=== PATIENT | female | born 1995 | race Caucasian/White ===

== ENCOUNTER 2017-05-05 19:25 | Emergency (ER) | payer MEDICAID, SELFPAY ==
[2017-05-05 19:32] VITALS: BP 122/78; PULSE 133; RESP 18; TEMP 37.5; O2SAT 100; BMI 26.5
[2017-05-05 19:44] VITALS: BMI 26.5
[2017-05-05 20:05] LABS: Microscopic, Urine URINE MICROSCOPIC (MICROSCOPIC)
[2017-05-05 20:11] LABS: Basophils % 0.2 % (0.1-2.0); Eosinophils # 0.1 K/mm3 (0.0-0.4); Eosinophils % 0.7 % (0.1-12.0); Hematocrit 38.5 % (37.0-47.0); Hemoglobin 12.7 g/dL (12.2-16.2); Lymphocytes # 1.1 K/mm3 (0.7-4.5); Lymphocytes % 10.8 K/mm3 (10-50); Mean Corpuscular HGB Conc 32.9 g/dL (31.8-35.4); Mean Corpuscular Hemoglobin 28.9 pg (27.0-31.2); Mean Corpuscular Volume 87.8 fl (81-99); Mean Platelet Volume 7.3 fl (7.4-10.4); Monocytes # 0.5 K/mm3 (0.1-1.0); Neutrophils # 8.1 K/mm3 (1.8-7.8); Neutrophils % 83.2 % (37.0-80.0); Platelet Count 230 K/mm3 (142-424); Red Blood Count 4.39 M/mm3 (4.20-5.40); Red Cell Distribution Width 12.4 % (11.5-17.5); White Blood Count 9.7 K/mm3 (4.5-13.0)
[2017-05-05 20:23] LABS: Alanine Aminotransferase 21 U/L (12-78); Albumin Level 3.6 gm/dL (3.4-5.0); Albumin/Globulin Ratio 0.9 (1.1-1.8); Alkaline Phosphatase 109 U/L (46-116); Anion Gap 11.6 mEq/L (5-15); Appearance,Urine CLEAR (Clear); Aspartate Amino Transferase 20 U/L (15-37); Bilirubin,Total 0.2 mg/dL (0.2-1.0); Bilirubin,Urine Negative (Negative); Blood Urea Nitrogen 8 mg/dL (7-18); Blood, Urine Negative (Negative); Carbon Dioxide 26 mmol/L (21.0-32.0); Chloride 102 mmol/L (98-107); Color,Urine YELLOW (Yellow); Creatinine Clearance Estimated 161 mL/min (0-300); Creatinine,Serum 0.58 mg/dL (0.55-1.02); Estimated Glomerular Filt Rate > 60 ml/min (>60); GFR (African American) > 60 ML/MIN (>60); Glucose 88 mg/dL (74-106); Glucose,Urine (UA) Negative (Negative); Ketones,Urine 1+ (Negative); Leukocyte Esterase,Urine Negative (Negative); Nitrate,Urine Negative (Negative); Potassium 3.6 mmoL/L (3.5-5.1); Protein,Urine TRACE (Negative); Sodium 136 mmol/L (136-145); Specific Gravity, Urine >= 1.030 (1.005-1.030); Total Protein,Serum 7.6 gm/dL (6.4-8.2); Urobilinogen,Urine 0.2 EU/dl (0.2)
[2017-05-05 20:32] LABS: Squamous Epithelial Cell,Urine 20-50 #/hpf (0-5)
[2017-05-05 20:33] LABS: Amorphous Sediment,Urine 1+ /lpf; Mucus,Urine 1+ /lpf
--- NOTE | 2017-05-05 22:04 | HMH.EDGENADL ---
ED Disposition Clinical Impression: Influenza A Qualifiers: Weeks of gestation: 11 weeks Qualified Code(s): Z3A.11 - 11 weeks gestation of Disposition: Home, Self-Care Condition on Discharge: Good Instructions: DI for Influenza -- Adult, DI for Nausea -- Adult Additional Instructions: Follow-up with Dr. Mcleod. Call for appointment. Take Phenergan for nausea. Rest and plenty of fluids per Additional instructions for INFLUENZA: See your physician as soon as possible for further evaluation. Tylenol for fever. Phenergan for vomiting. Return immediately if you have an uncontrollable fever greater than 104 degrees, difficulty breathing or shortness of breath, persistent vomiting, or inability to swallow, severe dizziness or fainting. Prescriptions: Oseltamivir Phosphate [Tamiflu 75mg Capsule] 75 mg PO BID #10 cap Referrals: Eric Bermudez MD [Primary Care Provider] - - Critical Care Critical Care Time: No Attestation: On 05/05/17, the high probability of a clinically significant, sudden or life threatening deterioration of the following system(s) required my full and direct attention, intervention and personal management. The time I documented below is in addition to time spent performing reported procedures but includes the following listed in this critical care notation. Medical Decision Making Vital Signs: 05/05/17 19:32 Temperature 99.5 F Temperature Source Temporal Artery Scan Pulse Rate [Brachial] 133 H Respiratory Rate 18 Blood Pressure [Left Arm] 122/78 Blood Pressure Mean [Left Arm] 92 Blood Pressure Source [Left Arm] Automatic Cuff 02 Sat by Pulse Oximetry 100 Oxygen Delivery Method Room Air - Lab Data Lab Results 05/05/17 19:50: Urine Color Yellow, Urine Appearance Clear, Urine pH 6.0, Ur Specific [place] >= 1.030, Urine Protein Trace, Urine Glucose (UA) Negative, Urine Ketones 1+, Urine Blood Negative, Urine Nitrate Negative, Urine Bilirubin Negative, Urine Urobilinogen 0.2, Ur Leukocyte Esterase Negative, Ur Squamous Epith Cells 20-50, Amorphous Sediment 1+, Urine Mucus 1+ 05/05/17 19:50: WBC 9.7, RBC 4.39, Hgb 12.7, Hct 38.5, MCV 87.8, MCH 28.9, MCHC 32.9, RDW 12.4, Plt Count 230, MPV 7.3 L, Neut % (Auto) 83.2 H, Lymph % (Auto) 10.8, [place] % (Auto) 5.0, Eos % (Auto) 0.7, Baso % (Auto) 0.2, Neut # (Auto) 8.1 H, Lymph # (Auto) 1.1, Henry # (Auto) 0.5, Eos # (Auto) 0.1, Baso # (Auto) 0.0 05/05/17 19:50: Sodium 136, Potassium 3.6, Chloride 102, Carbon Dioxide 26, Anion Gap 11.6, BUN 8, Creatinine 0.58, Estimated Creat Clear 161, Estimated GFR > 60, Est GFR ( Amer) > 60, Glucose 88, Calcium 9.0, Total Bilirubin 0.2, AST 20, ALT 21, Alkaline Phosphatase 109, Total Protein 7.6, Albumin 3.6, Globulin 4.0 H, Albumin/Globulin Ratio 0.9 L 05/05/17 19:50: Influenza Type A Ag Positive A, Influenza Type B Ag Negative Result diagrams: 05/05/17 19:50 05/05/17 19:50 Orders (Tests/Meds): ED MEDICATIONS Generic Name Dose Route Start Last Admin Trade Name Freq PRN Reason Stop Dose Admin Oseltamivir Phosphate 75 mg 05/06/17 09:00 Tamiflu 75mg Capsule PO 06/05/17 08:59 BID LILIA Sodium Chloride 10 ml 05/05/17 19:55 Saline Flush 10ml Syringe IV 06/04/17 19:54 NEEDED PRN Maintain IV Site Discontinued Medications Generic Name Dose Route Start Last Admin Trade Name Freq PRN Reason Stop Dose Admin Acetaminophen 650 mg 05/05/17 22:13 05/05/17 22:27 Acetaminophen 325mg Tab PO 05/05/17 22:14 650 mg ONCE ONE Administration Sodium Chloride 1,000 mls @ 999 mls/hr 05/05/17 20:15 05/05/17 20:21 Sod Chloride 0.9% 1000ml Bag IV 05/05/17 21:15 999 mls/hr .Q1H1M LILIA Administration Promethazine HCl 12.5 mg 05/05/17 22:13 05/05/17 22:23 Phenergan 25mg/Ml 1ml Vial IV 05/05/17 22:14 12.5 mg ONCE ONE Administration Sodium Chloride 1,000 ml 05/05/17 22:13 05/05/17 22:30 Sod Chloride 0.9% 1000ml Bag IV
--- NOTE | 2017-05-05 22:30 | PC.NURSE ---
FHT ASSESSED AT 156 AT THIS TIME
--- NOTE | 2017-05-05 22:54 | PC.NURSE ---
SPOKE TO MYA FROM PHARMACY RELATED TO TAMIFLU DURING
--- NOTE | 2017-05-05 23:00 | PC.NURSE ---
PT STATES SHE IS FEELING BETTER AND READY TO GO HOME NOW
== END 2017-05-06 00:18 | disposition home or self-care (01) ==
PROVIDERS: Emergency Provider Emergency Medicine; Family Provider Physician Assistant; PCP Internal Medicine Adolescent Medicine
DX: O98.511 Other viral diseases complicating pregnancy, first trimester (principal); J10.1 Influenza due to other identified influenza virus with other respiratory manifestations; Z3A.11 11 weeks gestation of pregnancy; O99.331 Smoking (tobacco) complicating pregnancy, first trimester; F17.210 Nicotine dependence, cigarettes, uncomplicated
CPT/HCPCS: 80053; 81001; 85025; 87275; 87276; 96365; 96375; 99282

== ENCOUNTER 2017-05-13 12:51 | Emergency (ER) | payer MEDICAID, SELFPAY ==
[2017-05-13 12:59] VITALS: BP 111/70; PULSE 110; RESP 16; TEMP 5414.3; TEMP 9777.8; O2SAT 98; BMI 26.5
--- NOTE | 2017-05-13 13:09 | HMH.EDGENADL ---
ED Disposition Clinical Impression: Abdominal pain affecting , Low back pain Disposition: Home, Self-Care Condition on Discharge: Good Instructions: DI for Abdominal Pain -- Early Additional Instructions: Return to the emergency department if worsening abdominal pain, vomiting, fever, or vaginal bleeding. Call Dr. Mcleod on Monday to arrange follow-up. - Critical Care Critical Care Time: No Attestation: On , the high probability of a clinically significant, sudden or life threatening deterioration of the following system(s) required my full and direct attention, intervention and personal management. The time I documented below is in addition to time spent performing reported procedures but includes the following listed in this critical care notation. Medical Decision Making Vital Signs: 05/13/17 12:59 Temperature 9777.8 F H Temperature Source Oral Pulse Rate [Right Brachial] 110 H Respiratory Rate 16 Blood Pressure [Right Arm] 111/70 Blood Pressure Mean [Right Arm] 83 Blood Pressure Source [Right Arm] Automatic Cuff Blood Pressure Position [Right Arm] Supine 02 Sat by Pulse Oximetry 98 Oxygen Delivery Method Room Air - Lab Data Lab Results 05/13/17 13:17: Urine Color Yellow, Urine Appearance Cloudy, Urine pH 6.0, Ur Specific [place] 1.025, Urine Protein Negative, Urine Glucose (UA) Negative, Urine Ketones Negative, Urine Blood Negative, Urine Nitrate Negative, Urine Bilirubin Negative, Urine Urobilinogen 0.2, Ur Leukocyte Esterase Negative, Urine WBC 10-20, Ur Squamous Epith Cells 20-50, Urine Bacteria 4+ Orders (Tests/Meds): ORDERS Category Date Time Status Urine Culture Stat Micro 05/13/17 13:17 Received - Dannie Inquiry Pt receiving controlled substance: No Medical Decision Making Narrative: 1:50 PM: Bedside ultrasound by me. Pelvic ultrasound, transabdominal, confirms movement and heart tones. General Adult HPI - General Chief complaint: PAIN Stated complaint: 12 wks ,back pain,cramps Mode of Arrival: Ambulatory Limitations: No Limitations Description of Symptoms (Recalled from ER Triage Doc. by RN): low abd cramping, back pain-just got over flu - History of Present Illness HPI narrative: The patient is currently 12 weeks and 3 days , prima . Utilization Supervisor is Dr. Mcleod. The patient complains of lower back and lower abdominal pain diffusely since last evening. It is constant. No vomiting or diarrhea. No urinary symptoms. No vaginal bleeding. She has had an ultrasound during this . Recently treated for the flu with Tamiflu. She completed that treatment and says her flu symptoms are better. - Related Data Home Medications Medication Instructions Recorded Confirmed vitamins with calcium 1 tab PO QDAY 04/26/17 05/05/17 no.72-iron 29 mg-folic acid 1 mg tablet Previous Rx's Medication Instructions Recorded Oseltamivir Phosphate [Tamiflu 75 mg PO BID #10 cap 05/05/17 75mg Capsule] Allergies Allergy/AdvReac Type Severity Reaction Status Date / Time amoxicillin [AMOXICILLIN] Allergy Unknown Verified 05/05/17 19:44 [facility] History I have reviewed the patient's past medical history: Yes Laterality Cases: Bilateral: Tonsillectomy - *Social History Educational Level: Attended High School Smoking Status: Current every day smoker Tobacco Type: cigarettes Alcohol Intake: never - Psychiatric History Expresses thoughts of harming self/others: None Suicide Plan Description: No Plan *Family Hx:: No significant family history Para: 0 ROS Obtained: Yes All systems reviewed & no additional complaints - Constitutional Constitutional: Denies fever(s) - Gastrointestinal Gastrointestingal: Reports: abdominal pain. Denies: diarrhea, vomiting - Genitourinary Female Genitourinary: Denies abnormal vaginal bleeding, Denies dysuria, Denies hematuria - Musculoskeletal
--- NOTE | 2017-05-13 13:12 | ED_ITS ---
ED Disposition Clinical Impression: Abdominal pain affecting , Low back pain Disposition: Home, Self-Care Condition on Discharge: Good Instructions: DI for Abdominal Pain -- Early Additional Instructions: Return to the emergency department if worsening abdominal pain, vomiting, fever , or vaginal bleeding. Call Dr. Mcleod on Monday to arrange follow-up. - Critical Care Critical Care Time: No Attestation: On , the high probability of a clinically significant, sudden or life threatening deterioration of the following system(s) required my full and direct attention, intervention and personal management. The time I documented below is in addition to time spent performing reported procedures but includes the following listed in this critical care notation. Medical Decision Making Vital Signs: 05/13/17 12:59 Temperature 9777.8 F H Temperature Source Oral Pulse Rate [Right Brachial] 110 H Respiratory Rate 16 Blood Pressure [Right Arm] 111/70 Blood Pressure Mean [Right Arm] 83 Blood Pressure Source [Right Arm] Automatic Cuff Blood Pressure Position [Right Arm] Supine 02 Sat by Pulse Oximetry 98 Oxygen Delivery Method Room Air - Lab Data Lab Results 05/13/17 13:17: Urine Color Yellow, Urine Appearance Cloudy, Urine pH 6.0, Ur Specific [place] 1.025, Urine Protein Negative, Urine Glucose (UA) Negative, Urine Ketones Negative, Urine Blood Negative, Urine Nitrate Negative, Urine Bilirubin Negative, Urine Urobilinogen 0.2, Ur Leukocyte Esterase Negative, Urine WBC 10-20, Ur Squamous Epith Cells 20-50, Urine Bacteria 4+ Orders (Tests/Meds): ORDERS Category Date Time Status Urine Culture Stat Micro 05/13/17 13:17 Received - Dannie Inquiry Pt receiving controlled substance: No Medical Decision Making Narrative: 1:50 PM: Bedside ultrasound by me. Pelvic ultrasound, transabdominal, confirms movement and heart tones. General Adult HPI - General Chief complaint: PAIN Stated complaint: 12 wks ,back pain,cramps Mode of Arrival: Ambulatory Limitations: No Limitations Description of Symptoms (Recalled from ER Triage Doc. by RN): low abd cramping, back pain-just got over flu - History of Present Illness HPI narrative: The patient is currently 12 weeks and 3 days , prima . Overlock Collar Setter is Dr. Mcleod. The patient complains of lower back and lower abdominal pain diffusely since last evening. It is constant. No vomiting or diarrhea. No urinary symptoms. No vaginal bleeding. She has had an ultrasound during this . Recently treated for the flu with Tamiflu. She completed that treatment and says her flu symptoms are better. - Related Data Home Medications Medication Instructions Recorded Confirmed vitamins with calcium 1 tab PO QDAY 04/26/17 05/05/17 no.72-iron 29 mg-folic acid 1 mg tablet Previous Rx's Medication Instructions Recorded Oseltamivir Phosphate [Tamiflu 75 mg PO BID #10 cap 05/05/17 75mg Capsule] Allergies Allergy/AdvReac Type Severity Reaction Status Date / Time amoxicillin [AMOXICILLIN] Allergy Unknown Verified 05/05/17 19:44 [facility] History I have reviewed the patient's past medical history: Yes Laterality Cases: [place]
[2017-05-13 13:22] LABS: Microscopic, Urine URINE MICROSCOPIC (MICROSCOPIC)
[2017-05-13 13:29] LABS: Appearance,Urine CLOUDY (Clear); Bilirubin,Urine Negative (Negative); Blood, Urine Negative (Negative); Color,Urine YELLOW (Yellow); Glucose,Urine (UA) Negative (Negative); Ketones,Urine Negative (Negative); Leukocyte Esterase,Urine Negative (Negative); Nitrate,Urine Negative (Negative); Protein,Urine Negative (Negative); Specific Gravity, Urine 1.025 (1.005-1.030); Urobilinogen,Urine 0.2 EU/dl (0.2)
[2017-05-13 13:38] LABS: Bacteria,Urine 4+ /lpf; Squamous Epithelial Cell,Urine 20-50 #/hpf (0-5)
[2017-05-13 14:16] VITALS: BP 125/71; PULSE 96; RESP 18; TEMP 36.9; O2SAT 95
--- NOTE | 2017-05-13 14:18 | PC.NURSE ---
ASSISTED DR IN PELVIC EXAM. PT TOLERATED WELL.
[2017-05-13 14:30] VITALS: BP 122/62; PULSE 60; RESP 18; O2SAT 98
== END 2017-05-13 14:34 | disposition home or self-care (01) ==
PROVIDERS: Emergency Provider Emergency Medicine; Family Provider Physician Assistant; PCP Internal Medicine Adolescent Medicine
DX: O26.891 Other specified pregnancy related conditions, first trimester (principal); Z3A.12 12 weeks gestation of pregnancy; Z88.1 Allergy status to other antibiotic agents
CPT/HCPCS: 36415; 81001; 87086; 99282

== ENCOUNTER → 2017-06-07 11:38 | Outpatient (CLI) | payer MEDICAID, SELFPAY ==
[2017-06-20 13:11] LABS: AFP Value 33.9 ng/mL (.); DIA MoM 1.29 (.); DSR (Second Trimester) 1 IN 8051 (.); Insulin Dep Diabetes No (.); Maternal Age At EDD 21.1 YEARS (.); OSBR Risk 1 IN 10000 (.); Results Report (.); hCG MoM 0.67 (.); hCG Value 27160 mIU/mL (.); uE3 Value 0.91 ng/mL (.)
[2017-06-21 06:35] LABS: Gestat. Age Based On EDD (.)
== END ==
PROVIDERS: Family Provider Physician Assistant; PCP Internal Medicine Adolescent Medicine; Visit Provider Nurse Practitioner Obstetrics & Gynecology
DX: Z34.90 Encounter for supervision of normal pregnancy, unspecified, unspecified trimester (principal)
CPT/HCPCS: 36415; 82106

== ENCOUNTER → 2017-07-05 12:35 | Outpatient (CLI) | payer MEDICAID, SELFPAY ==
--- NOTE | 2017-07-05 12:37 | US_ITS ---
US OB /maternal detail: INDICATION: ITS.REASON: 20 WK+ COMPLETE ANATOMY SCAN ORDERING PHYSICIAN: Srinivasa Mcleod MD PATIENT AGE: 21 years TECHNIQUE: ultrasound transabdominal scanning. COMPARISON: No previous relevant studies. FINDINGS: Single viable intrauterine gestation. cephalic position. Placenta: posterior placenta grade 1. There is adequate amount fluid. The cervix appears satisfactory. Closed and measuring 3 cm in length. Complete survey performed and was unremarkable on the submitted images as in PACS. No discrete anomalies identified on survey imaging by technologist. Active fetus. Three-vessel cord with satisfactory umbilical cord insertion. 4- chamber heart noted. Survey of brain & ventricles. Face and neck survey unremarkable. Diaphragm and chest views unremarkable. Abdomen: Both kidneys noted and unremarkable. Stomach noted and satisfactory. Spine: Survey of the spine satisfactory with no anomalies identified nor imaged. Both arms and legs noted. Amniotic Fluid: Adequate. Maternal adnexa: No significant findings. Measurements: Average ultrasound age 19w4d. Gestational Age 20w0d. Estimated due date by ultrasound age 0711/25/2017. Estimated weight 291 grams. This is 17th percentile based on last menstrual period BPD = 19w6d OFD = 19w4d HC = 19w0d AC = 20w0d FL = 19w0d Heart Rate = 153 Cerebellum = 21w1d Humerus = 18w1d HC/AC is 1.10 (1.09-1.26). CI is 82% (70-86%). FL/BPD is 63%. FL/AC is 20%. IMPRESSION: Single live fetus in cephalic presentation and an average ultrasound age of 19 weeks 4 days. The fetus is active with no obvious anomalies. Please see above for detail
== END ==
PROVIDERS: Family Provider Physician Assistant; PCP Internal Medicine Adolescent Medicine; Visit Provider Nurse Practitioner Obstetrics & Gynecology
DX: Z36.0 Encounter for antenatal screening for chromosomal anomalies (principal)
CPT/HCPCS: 76811

== ENCOUNTER 2017-07-20 15:57 | Outpatient (CLI) | payer MEDICAID, SELFPAY ==
[2017-07-20 16:30] VITALS: BP 139/76; PULSE 99; RESP 22; TEMP 36.7; O2SAT 99; BMI 27.4
[2017-07-20 17:12] LABS: Appearance,Urine CLEAR (Clear); Bilirubin,Urine Negative (Negative); Blood, Urine Negative (Negative); Color,Urine YELLOW (Yellow); Glucose,Urine (UA) Negative (Negative); Ketones,Urine Negative (Negative); Leukocyte Esterase,Urine TRACE (Negative); Microscopic, Urine URINE MICROSCOPIC (MICROSCOPIC); Nitrate,Urine Negative (Negative); PH,Urine 6.5 (5.0-8.5); Protein,Urine Negative (Negative); Specific Gravity, Urine 1.025 (1.005-1.030); Urobilinogen,Urine 0.2 EU/dl (0.2)
[2017-07-20 17:22] LABS: Bacteria,Urine 1+ /lpf
== END 2017-07-20 18:20 | disposition home or self-care (01) ==
LOC: OBOUT 15:59 → OB 16:04
PROVIDERS: PCP Nurse Practitioner Obstetrics & Gynecology; Visit Provider Nurse Practitioner Obstetrics & Gynecology
DX: O99.89 Other specified diseases and conditions complicating pregnancy, childbirth and the puerperium (principal); O36.8120 Decreased fetal movements, second trimester, not applicable or unspecified; Z3A.22 22 weeks gestation of pregnancy
CPT/HCPCS: 59025; 81001

== ENCOUNTER 2017-08-03 23:40 | Outpatient (CLI) | payer MEDICAID, SELFPAY ==
[2017-08-04] VITALS: BP 128/74; PULSE 93; RESP 18; TEMP 36.9; O2SAT 98; BMI 28.3
[2017-08-04 00:06] VITALS: BP 128/74; PULSE 93; RESP 17; TEMP 36.9; O2SAT 98; BMI 28.3
[2017-08-04 00:51] LABS: Microscopic, Urine URINE MICROSCOPIC (MICROSCOPIC)
[2017-08-04 01:45] LABS: Appearance,Urine CLEAR (Clear); Bilirubin,Urine Negative (Negative); Blood, Urine Negative (Negative); Color,Urine YELLOW (Yellow); Glucose,Urine (UA) Negative (Negative); Ketones,Urine Negative (Negative); Leukocyte Esterase,Urine Negative (Negative); Nitrate,Urine Negative (Negative); Protein,Urine Negative (Negative); Specific Gravity, Urine 1.025 (1.005-1.030); Urobilinogen,Urine 0.2 EU/dl (0.2)
[2017-08-04 02:38] LABS: RBC,Urine Occasional #/hpf (0-3)
[2017-08-04 02:39] LABS: Bacteria,Urine 2+ /lpf; Calcium Oxalate Crystals,Urine Trace /lpf
== END 2017-08-04 01:57 | disposition hospice, home (50) ==
LOC: OBOUT 23:43 → OB 23:44
PROVIDERS: PCP Nurse Practitioner Family; Visit Provider Obstetrics & Gynecology
DX: O26.92 Pregnancy related conditions, unspecified, second trimester (principal); Z3A.24 24 weeks gestation of pregnancy; R51 Headache; R20.0 Anesthesia of skin
CPT/HCPCS: 81001; 87086

== ENCOUNTER 2017-08-25 21:08 | Outpatient (CLI) | payer MEDICAID, SELFPAY ==
[2017-08-25 21:26] VITALS: BMI 56.8
[2017-08-25 21:45] LABS: Microscopic, Urine URINE MICROSCOPIC (MICROSCOPIC)
[2017-08-25 21:46] LABS: Appearance,Urine CLEAR (Clear); Bilirubin,Urine Negative (Negative); Blood, Urine Negative (Negative); Color,Urine YELLOW (Yellow); Glucose,Urine (UA) Negative (Negative); Ketones,Urine Negative (Negative); Leukocyte Esterase,Urine Negative (Negative); Nitrate,Urine Negative (Negative); Protein,Urine Negative (Negative); Urobilinogen,Urine 0.2 EU/dl (0.2)
[2017-08-25 21:58] LABS: Amphetamine/Metha Screen,Urine Negative ng/mL (<1000); Barbiturates Screen,Urine Negative ng/mL (<200); Benzodiazepines Screen,Urine Negative ng/mL (200); Cannabinoid Screen,Urine Negative ng/mL (<50); Cocaine Screen,Urine Negative ng/g (<300); Methadone Screen,Urine Negative ng/mL (<300); Opiate Screen,Urine Negative ng/mL (<300); Phencyclidine Screen,Urine Negative ng/mL (<25)
[2017-08-25 22:01] LABS: Bacteria,Urine Trace /lpf; Squamous Epithelial Cell,Urine Occasional #/hpf (0-5)
[2017-08-25 22:05] VITALS: BP 109/66; PULSE 95; RESP 18; TEMP 36.8; O2SAT 98
[2017-08-25 22:06] LABS: Fetal Membrane Rupture (Rapid) Negative (Negative)
[2017-08-25 22:09] VITALS: BMI 25.7
[2017-08-25 22:25] LABS: Fetal Fibronectin (Rapid) Negative (Negative)
== END 2017-08-25 23:00 | disposition home or self-care (01) ==
LOC: OBOUT 21:10 → OB 21:11
PROVIDERS: PCP Nurse Practitioner Family; Visit Provider Obstetrics & Gynecology
DX: Z3A.27 27 weeks gestation of pregnancy (principal); O47.00 False labor before 37 completed weeks of gestation, unspecified trimester
CPT/HCPCS: 59025; 80305; 81001; 82731; 84112

== ENCOUNTER → 2017-09-11 14:13 | Outpatient (CLI) | payer MEDICAID, SELFPAY ==
[2017-09-11 14:48] LABS: Basophils % 0.1 % (0.1-2.0); Eosinophils # 0.1 K/mm3 (0.0-0.4); Eosinophils % 0.6 % (0.1-12.0); Hematocrit 34.7 % (37.0-47.0); Hemoglobin 11.8 g/dL (12.2-16.2); Lymphocytes % 19.1 K/mm3 (10-50); Mean Corpuscular HGB Conc 33.9 g/dL (31.8-35.4); Mean Corpuscular Volume 88.4 fl (81-99); Mean Platelet Volume 7.2 fl (7.4-10.4); Monocytes # 0.4 K/mm3 (0.1-1.0); Monocytes % 4.2 % (1.7-9.3); Neutrophils # 8.1 K/mm3 (1.8-7.8); Neutrophils % 76.1 % (37.0-80.0); Platelet Count 265 K/mm3 (142-424); Red Blood Count 3.93 M/mm3 (4.20-5.40); Red Cell Distribution Width 13.2 % (11.5-17.5); White Blood Count 10.6 K/mm3 (4.5-13.0)
[2017-09-11 15:13] LABS: D-Dimer 634 ng/mL (0-400)
[2017-09-11 15:19] LABS: Activated Partial Thrombo Time 26.6 seconds (23.6-34.0); Fibrinogen 500 mg/dL (204-500); INR 0.86 (0.9-1.1); Prothrombin Time 9.3 seconds (9.4-11.8)
[2017-09-11 16:55] LABS: Alanine Aminotransferase 15 U/L (12-78); Anion Gap 14.4 mEq/L (5-15); Aspartate Amino Transferase 14 U/L (15-37); Blood Urea Nitrogen 9 mg/dL (7-18); Carbon Dioxide 24 mmol/L (21.0-32.0); Chloride 103 mmol/L (98-107); Creatinine,Serum 0.33 mg/dL (0.55-1.02); Estimated Glomerular Filt Rate 254 ml/min (>60); GFR (African American) 307 ML/MIN (>60); Glucose 75 mg/dL (74-106); Potassium 4.4 mmoL/L (3.5-5.1); Sodium 137 mmol/L (136-145); Uric Acid 1.7 mg/dL (2.6-7.2)
== END ==
PROVIDERS: Family Provider Physician Assistant; PCP Nurse Practitioner Family; Visit Provider Nurse Practitioner Obstetrics & Gynecology
DX: Z34.90 Encounter for supervision of normal pregnancy, unspecified, unspecified trimester (principal); O16.3 Unspecified maternal hypertension, third trimester
CPT/HCPCS: 36415; 80048; 84450; 84460; 84550; 85025; 85378; 85384; 85610; 85730

== ENCOUNTER → 2017-09-13 09:56 | Outpatient (CLI) | payer MEDICAID, SELFPAY ==
[2017-09-13 13:22] LABS: Creatinine,Urine Random 49 mg/dL (20-320)
[2017-09-13 13:43] LABS: Collection Time,Urine 24 hours; Creatinine 24 Hour,Urine 968 mg/24hr (630-2500); Total Volume,Urine 1975 mL (600-1600)
[2017-09-13 16:35] LABS: Total Protein 24 Hour,Urine 192 mg/24 hr (40-90); Total Protein,Urine Random 9.7 mg/dL (0.0-11.9)
== END ==
PROVIDERS: Visit Provider Nurse Practitioner Obstetrics & Gynecology
DX: Z34.90 Encounter for supervision of normal pregnancy, unspecified, unspecified trimester (principal)
CPT/HCPCS: 82570; 84155

== ENCOUNTER 2017-10-04 13:27 | Outpatient (CLI) | payer MEDICAID, SELFPAY ==
[2017-10-04 13:47] VITALS: BMI 31.1
[2017-10-04 13:48] VITALS: BP 129/76; PULSE 88; RESP 18; TEMP 37; O2SAT 99; BMI 31.1
[2017-10-04 14:11] LABS: Microscopic, Urine URINE MICROSCOPIC (MICROSCOPIC)
[2017-10-04 14:23] LABS: Appearance,Urine CLEAR (Clear); Bilirubin,Urine Negative (Negative); Blood, Urine Negative (Negative); Color,Urine YELLOW (Yellow); Glucose,Urine (UA) Negative (Negative); Ketones,Urine Negative (Negative); Leukocyte Esterase,Urine TRACE (Negative); Nitrate,Urine Negative (Negative); PH,Urine 6.5 (5.0-8.5); Protein,Urine Negative (Negative); Urobilinogen,Urine 0.2 EU/dl (0.2)
[2017-10-04 14:30] LABS: WBC,Urine Occasional #/hpf (0-3)
[2017-10-04 14:31] LABS: Bacteria,Urine Trace /lpf; Squamous Epithelial Cell,Urine Occasional #/hpf (0-5)
[2017-10-04 14:59] VITALS: BP 125/81; PULSE 95; RESP 18; O2SAT 99
== END 2017-10-04 14:50 | disposition home or self-care (01) ==
LOC: OBOUT 13:29 → OB 13:30
PROVIDERS: PCP Nurse Practitioner Family; Visit Provider Obstetrics & Gynecology
DX: O47.03 False labor before 37 completed weeks of gestation, third trimester (principal); Z3A.33 33 weeks gestation of pregnancy
CPT/HCPCS: 59025; 81001

== ENCOUNTER 2017-10-14 23:16 | Outpatient (CLI) | payer MEDICAID, SELFPAY ==
[2017-10-14 23:50] VITALS: BP 154/92; PULSE 113; RESP 20; TEMP 36.9; BMI 31.1
[2017-10-14 23:52] VITALS: BMI 31.1
== END 2017-10-15 01:00 | disposition home or self-care (01) ==
LOC: OBOUT 23:17 → OB 23:18
PROVIDERS: PCP Nurse Practitioner Family; Referring Provider Nurse Practitioner Obstetrics & Gynecology; Visit Provider Nurse Practitioner Obstetrics & Gynecology
DX: O26.893 Other specified pregnancy related conditions, third trimester (principal); Z3A.34 34 weeks gestation of pregnancy
CPT/HCPCS: 59025; 96372

== ENCOUNTER → 2017-10-18 17:33 | Outpatient (REF) | payer MEDICAID, SELFPAY | LOC: LAB 17:33 | PROVIDERS: Visit Provider Nurse Practitioner Obstetrics & Gynecology | DX: Z34.90 Encounter for supervision of normal pregnancy, unspecified, unspecified trimester (principal) | CPT/HCPCS: 86403 ==

== ENCOUNTER 2017-10-23 13:38 | Outpatient (CLI) | payer MEDICAID, SELFPAY ==
[2017-10-23 13:55] VITALS: BP 136/89; PULSE 107; RESP 22; TEMP 36.8; BMI 32.0
[2017-10-23 14:18] LABS: Microscopic, Urine URINE MICROSCOPIC (MICROSCOPIC)
[2017-10-23 14:25] LABS: Appearance,Urine CLEAR (Clear); Bilirubin,Urine Negative (Negative); Blood, Urine Negative (Negative); Color,Urine YELLOW (Yellow); Glucose,Urine (UA) Negative (Negative); Ketones,Urine Negative (Negative); Leukocyte Esterase,Urine Negative (Negative); Nitrate,Urine Negative (Negative); Protein,Urine Negative (Negative); Urobilinogen,Urine 0.2 EU/dl (0.2)
[2017-10-23 15:14] LABS: Bacteria,Urine Trace /lpf; Calcium Oxalate Crystals,Urine Trace /lpf; Mucus,Urine 3+ /lpf; Sperm,Urine 1+ /lpf
== END 2017-10-23 15:23 | disposition home or self-care (01) ==
LOC: OBOUT 13:40 → OB 13:41
PROVIDERS: PCP Nurse Practitioner Family; Visit Provider Nurse Practitioner Obstetrics & Gynecology
DX: O26.93 Pregnancy related conditions, unspecified, third trimester (principal); Z3A.36 36 weeks gestation of pregnancy; M54.5 Low back pain
CPT/HCPCS: 59025; 81001; 96360

== ENCOUNTER 2017-10-25 10:49 | Outpatient (CLI) | payer MEDICAID, SELFPAY ==
[2017-10-25 11:27] VITALS: BP 139/83; PULSE 95; RESP 18; TEMP 36.8; O2SAT 98; BMI 31.1
== END 2017-10-25 12:00 | disposition home or self-care (01) ==
LOC: OBOUT 10:51 → OB 10:51
PROVIDERS: Visit Provider Nurse Practitioner Obstetrics & Gynecology
DX: O13.3 Gestational [pregnancy-induced] hypertension without significant proteinuria, third trimester (principal); Z3A.36 36 weeks gestation of pregnancy
CPT/HCPCS: 59025

== ENCOUNTER 2017-10-27 16:13 | Outpatient (CLI) | payer MEDICAID, SELFPAY ==
[2017-10-27 16:24] VITALS: BMI 32.5
[2017-10-27 16:54] LABS: Microscopic, Urine URINE MICROSCOPIC (MICROSCOPIC)
[2017-10-27 16:58] LABS: Appearance,Urine SL CLOUDY (Clear); Bilirubin,Urine Negative (Negative); Blood, Urine Negative (Negative); Color,Urine YELLOW (Yellow); Glucose,Urine (UA) Negative (Negative); Ketones,Urine Negative (Negative); Leukocyte Esterase,Urine 2+ (Negative); Nitrate,Urine Negative (Negative); Protein,Urine TRACE (Negative); Urobilinogen,Urine 0.2 EU/dl (0.2)
[2017-10-27 17:02] VITALS: BP 119/82; PULSE 104; RESP 20; TEMP 36.7; O2SAT 100; BMI 32.5
[2017-10-27 17:03] LABS: Bacteria,Urine 1+ /lpf
[2017-10-27 17:07] LABS: Fetal Membrane Rupture (Rapid) Negative (Negative)
== END 2017-10-27 17:55 | disposition home or self-care (01) ==
LOC: OBOUT 16:16 → OB 16:17
PROVIDERS: PCP Nurse Practitioner Obstetrics & Gynecology; Visit Provider Obstetrics & Gynecology
DX: O36.8130 Decreased fetal movements, third trimester, not applicable or unspecified (principal); Z3A.36 36 weeks gestation of pregnancy
CPT/HCPCS: 59025; 81001; 84112; 87086

== ENCOUNTER → 2017-10-31 08:00 | Outpatient (CLI) | payer MEDICAID, SELFPAY ==
--- NOTE | 2017-10-31 | US_ITS ---
US OB biophysical profile, US OB follow up, US SD Ratio umbilcal artery: Indication: Check position, maternal hypertension ITS.REASON: US OB- BPP Growth- Hypertention ORDERING PHYSICIAN: Stephanie Jules MD PATIENT AGE: 22 years FINDINGS: There is a single live fetus in breech presentation. Placenta is posterior and grade 2. breathing and movement noted The following parameters are obtained: Average ultrasound age is 33w4d . Estimated due date by ultrasound is 12/15/2017 . Established due date is 11/22/2017. Estimated weight is 2292g. This is 3rd percentile based on established due date of 11/22/2017. BPD: 32w4d OFD: 35w0d HC: 33w3d AC: 34w4d FL: 33w3d heart rate: 136 bpm. HC/AC: 0.99 (0.93-1.11) Cephalic index: 74% (70-86%) FL/BPD: 80% (71-87%) FL/AC: 21% (20-24%) Amniotic fluid index: 9.5 cm Qualitative AFV: 2 breathing movements: 2 Gross body movements: 2 Tone: 2 Biophysical profile score: 8/8 Doppler evaluation of the umbilical artery: SD ratio: 3.9 Resistive index: 0.74 No obvious anomalies evident. Placenta: Posterior Grade 2 Cervix: Appears closed and measures 3 cm IMPRESSION: Live intrauterine gestation in breech presentation. The average ultrasound age is 33 weeks 4 days. The gestational age is 36 weeks 6 days. Estimated weight is 2292 g which is 3rd percentile based on established due date indicating small for gestational age. The placenta is posterior and grade 2 with a slightly elevated SD ratio of 3.9.
== END ==
PROVIDERS: Family Provider Physician Assistant; PCP Internal Medicine Adolescent Medicine; Visit Provider Obstetrics & Gynecology
DX: O16.3 Unspecified maternal hypertension, third trimester (principal); Z3A.37 37 weeks gestation of pregnancy
CPT/HCPCS: 76816; 76819; 76820

== ENCOUNTER 2017-11-02 10:32 | Outpatient (CLI) | payer MEDICAID, SELFPAY ==
[2017-11-02 10:41] VITALS: BMI 32.0
[2017-11-02 10:50] VITALS: BP 140/107; PULSE 112; RESP 18; TEMP 36.7; O2SAT 98; BMI 32.0
[2017-11-02 11:42] LABS: Basophils % 0.3 % (0.1-2.0); Eosinophils % 0.5 % (0.1-12.0); Hemoglobin 11.8 g/dL (12.2-16.2); Lymphocytes # 1.7 K/mm3 (0.7-4.5); Lymphocytes % 18.8 K/mm3 (10-50); Mean Corpuscular HGB Conc 33.7 g/dL (31.8-35.4); Mean Corpuscular Hemoglobin 29.4 pg (27.0-31.2); Mean Corpuscular Volume 87.2 fl (81-99); Mean Platelet Volume 7.4 fl (7.4-10.4); Monocytes # 0.4 K/mm3 (0.1-1.0); Monocytes % 4.7 % (1.7-9.3); Neutrophils % 75.7 % (37.0-80.0); Platelet Count 212 K/mm3 (142-424); Red Blood Count 4.01 M/mm3 (4.20-5.40); Red Cell Distribution Width 12.9 % (11.5-17.5); White Blood Count 9.3 K/mm3 (4.8-10.8)
[2017-11-02 11:53] LABS: Alanine Aminotransferase 15 U/L (12-78); Anion Gap 13.7 mEq/L (5-15); Aspartate Amino Transferase 15 U/L (15-37); Blood Urea Nitrogen 8 mg/dL (7-18); Calcium 8.3 mg/dL (8.5-10.1); Carbon Dioxide 21 mmol/L (21.0-32.0); Chloride 107 mmol/L (98-107); Creatinine Clearance Estimated 228 mL/min (0-300); Creatinine,Serum 0.49 mg/dL (0.55-1.02); Estimated Glomerular Filt Rate 159 ml/min (>60); GFR (African American) 193 ML/MIN (>60); Glucose 78 mg/dL (74-106); Potassium 3.7 mmoL/L (3.5-5.1); Sodium 138 mmol/L (136-145); Uric Acid 4.3 mg/dL (2.6-7.2)
[2017-11-02 12:50] LABS: Activated Partial Thrombo Time 26.2 seconds (23.6-34.0); Fibrinogen 442 mg/dL (204-500); INR 0.89 (0.9-1.1); Prothrombin Time 9.2 seconds (9.4-11.8)
[2017-11-02 15:09] LABS: D-Dimer 1400 ng/mL (0-400)
== END 2017-11-02 12:55 | disposition home or self-care (01) ==
LOC: OBOUT 10:34 → OB 10:35
PROVIDERS: PCP Internal Medicine Adolescent Medicine; Visit Provider Obstetrics & Gynecology
DX: O16.3 Unspecified maternal hypertension, third trimester (principal); Z3A.37 37 weeks gestation of pregnancy
CPT/HCPCS: 59025; 80048; 84450; 84460; 84550; 85025; 85378; 85384; 85610; 85730; 86850; 96360

== ENCOUNTER → 2017-11-03 10:20 | Outpatient (CLI) | payer MEDICAID, SELFPAY ==
[2017-11-08 15:49] LABS: Alpha-1-Globulin, U 9.2 % (.); Alpha-2-Globulin, U 15.3 % (.); Beta Globulin, U 31.8 % (.); Gamma Globulin, U 11.7 % (.); M-Spike, % Not Observed % (Not Observed); Prot,24hr calculated 3 mg/24 hr (30-150); Protein,Total,Urine 25.8 mg/dL (Not Estab.)
== END ==
PROVIDERS: Visit Provider Obstetrics & Gynecology
DX: O16.3 Unspecified maternal hypertension, third trimester (principal)
CPT/HCPCS: 84156

== ENCOUNTER 2017-11-04 19:17 | Outpatient (CLI) | payer MEDICAID, SELFPAY ==
[2017-11-04 19:59] VITALS: BP 143/94; PULSE 91; RESP 17; TEMP 36.7; O2SAT 98; BMI 32.7
[2017-11-04 20:06] LABS: Microscopic, Urine URINE MICROSCOPIC (MICROSCOPIC)
[2017-11-04 20:08] LABS: Appearance,Urine SL CLOUDY (Clear); Bilirubin,Urine Negative (Negative); Blood, Urine Negative (Negative); Color,Urine YELLOW (Yellow); Glucose,Urine (UA) Negative (Negative); Ketones,Urine Negative (Negative); Leukocyte Esterase,Urine Negative (Negative); Nitrate,Urine Negative (Negative); PH,Urine 6.5 (5.0-8.5); Protein,Urine Negative (Negative); Specific Gravity, Urine 1.015 (1.005-1.030); Urobilinogen,Urine 0.2 EU/dl (0.2)
[2017-11-04 20:10] LABS: Squamous Epithelial Cell,Urine 20-50 #/hpf (0-5)
[2017-11-04 20:12] LABS: Fetal Membrane Rupture (Rapid) Negative (Negative)
== END 2017-11-04 21:10 | disposition home or self-care (01) ==
LOC: OBOUT 19:19 → OB 19:20
PROVIDERS: PCP Nurse Practitioner Obstetrics & Gynecology; Visit Provider Obstetrics & Gynecology
DX: O47.03 False labor before 37 completed weeks of gestation, third trimester (principal); Z3A.37 37 weeks gestation of pregnancy
CPT/HCPCS: 59025; 81001; 84112

== ENCOUNTER 2017-11-06 10:52 | Inpatient (IN) ==
[2017-11-06 11:52] LABS: Basophils % 0.4 % (0.1-2.0); Eosinophils # 0.1 K/mm3 (0.0-0.4); Eosinophils % 0.6 % (0.1-12.0); Hematocrit 35.4 % (37.0-47.0); Hemoglobin 11.6 g/dL (12.2-16.2); Lymphocytes # 1.9 K/mm3 (0.7-4.5); Mean Corpuscular HGB Conc 32.9 g/dL (31.8-35.4); Mean Corpuscular Volume 88.2 fl (81-99); Mean Platelet Volume 7.6 fl (7.4-10.4); Monocytes # 0.5 K/mm3 (0.1-1.0); Monocytes % 5.8 % (1.7-9.3); Neutrophils # 6.1 K/mm3 (1.8-7.8); Neutrophils % 71.2 % (37.0-80.0); Platelet Count 186 K/mm3 (142-424); Red Blood Count 4.01 M/mm3 (4.20-5.40); White Blood Count 8.5 K/mm3 (4.8-10.8)
--- NOTE | 2017-11-06 14:29 | Progress Note ---
[facility] Anesthesia Checklist - Patient Identification Patient Identification: Verbal (Name & ) - Structural Data Admitted From: Home Planned Operative Procedure/s: csection Consent for Planned Operative Procedure(s) Verified: Yes Verified Documents: Surgical Consent, History and Physical - NPO Status Verified Time NPO: 00:00 - Additional verifications Patient : Yes Anesthesia Reactions: No Hx Blood Transfusions: No Blood Transfusion Reaction: No Cephalosporin Allergy: No Previous Colonoscopy: No - Cardiovascular Assessment Heart Sounds: S1 & S2 Pulse Strength: Baseline Pulse Rhythm: Regular Peripheral Edema: No - Airway Assessment C-Spine Mobility Assessed: Yes TMJ Mobility Assessed: Yes Dentition: Good Dentition - Neurological Assessment Level of Consciousness: Awake, Alert, Appropriate Hx Seizures: No Numbness or tingling in extremities: No - Anesthesia Plan Anesthesia Risk discussed: Yes ASA Class: II Anesthesia Type: Spinal [facility] Anesthesia HX I have reviewed the patient's past medical history: Yes Medical History: Reports:: Anxiety, Depression, Hypertension Denies:: Asthma, Seizures Laterality Cases: Bilateral: Tonsillectomy Other Surgeries: Yes: No Previous Surgery. No: Amputation: No Fractures: No *Family Hx:: Cancer, Diabetes, Heart Attack, Hypertension
--- NOTE | 2017-11-06 14:30 | Progress Note ---
[facility] Anesthesia Record Part I Intake, IV Amount: 500 Estimated blood loss (mL): 600 Urine output (mL): 200 Blood Products used (#): none Blood Pressure: 124/85 SaO2: 100 Pulse Rate: 81 Respiratory Rate: 18 Temperature: 97.9 F Patient is:: Awake, Stable Stable to PACU at:: 14:25
--- NOTE | 2017-11-06 14:31 | Progress Note ---
[facility] Anesthesia Record Part II Discharge Time: 14:55 Destination: Obstetric Gynecology Dept PACU nurse assessment reviewed?: Yes Patient Condition:: Good Anesthesia Complications:: None
--- NOTE | 2017-11-06 15:04 | Operative Note ---
Pre-Op/Post-Op Diagnoses Operation Date: 11/06/17 13:00 <No data on this case meets the specified criteria> Preop Diagnosis: 1. CHTN with superimposed PIH 2. Breech presentation 3. Maternal anxiety/depression 4. Rubella non-immune maternal status Postop Diagnosis: 1. CHTN with superimposed PIH 2. Breech presentation 3. Maternal anxiety/depression 4. Rubella non-immune maternal status Procedure: Procedures Operation Date: 11/06/17 13:00 <No data on this case meets the specified criteria> Primary LTCS Estimated blood loss (mL): 600 Disposition: PACU Anesthesia type: Spinal Complications: None Narrative: The patient was taken to the OR and spinal administered without difficulty. She was prepped and draped in normal sterile fashion. A pfannenstiel skin incision was made with the scalpel and carried down to the fascia. The fascia was incised in the midline and sharply dissected off the rectus muscles. The muscles were in the midline and the peritoneum was entered sharply and extended bluntly. The Tre-O self retaining retractor was placed in the abdomen and a bladder flap was created. The uterus was incised in the lower uterine segment in a transverse fashion and extended bluntly. Amniotomy was performed and clear fluid noted. The breech was delivered in controlled fashion , without complication. Lower and upper extremities were medially rotated to assist with delivery, and fundal pressure used to assist with delivery of the vertex. The infant was vigorous at and handed to awaiting pediatricians for evaluation after cord clamped and cut. The placenta was manually extracted and sent for pathology. The uterus was repaired with 0-vicryl in a running/ locked fashion. The peritoneum was closed with 2-0 vicryl in running fashion. The subcutaneous fat was closed with 2-0 vicryl in interrupted fashion. The skin was closed with reji. The patient tolerated the procedure well. Sponge , lap, needle and instrument counts were correct x 2. She was taken to PACU in stable condition.
[2017-11-06 15:11] LABS: Microscopic, Urine URINE MICROSCOPIC (MICROSCOPIC)
[2017-11-06 15:13] LABS: Appearance,Urine CLEAR (Clear); Bilirubin,Urine Negative (Negative); Blood, Urine Negative (Negative); Color,Urine YELLOW (Yellow); Glucose,Urine (UA) Negative (Negative); Ketones,Urine Negative (Negative); Leukocyte Esterase,Urine Negative (Negative); Protein,Urine Negative (Negative); Urobilinogen,Urine 0.2 EU/dl (0.2)
--- NOTE | 2017-11-06 15:33 | Pharmacy Consult Notes ---
[facility] Pharmacy VTE Monitoring - Patient Demographics Admission date: 11/06/17 Report Date: 11/06/17 Time: 15:33 Allergies/Adverse Reactions: Patient Allergies amoxicillin [AMOXICILLIN] Allergy (Unknown, Verified 11/03/17 11:47) Height: 1.57 m Weight: 79.379 kg - VTE Risk Labs: VTE Related Lab Results Hgb 11.6 g/dL (12.2-16.2) L 11/06/17 11:20 Hct 35.4 % (37.0-47.0) L 11/06/17 11:20 Plt Count 186 K/mm3 (142-424) 11/06/17 11:20 Clinical Trial Participant: No - Prophylaxis VTE Prophylaxis Ordered?: Yes Types of VTE Prophylaxis: IPCS Thigh High (POST OP)
[2017-11-06 15:44] LABS: Bacteria,Urine Trace /lpf; RBC,Urine Occasional #/hpf (0-3); WBC,Urine Occasional #/hpf (0-3)
[2017-11-07 06:42] LABS: Hematocrit 29.6 % (37.0-47.0); Hemoglobin 9.8 g/dL (12.2-16.2)
--- NOTE | 2017-11-08 14:04 | Progress Note ---
Internal Medicine - PN: Subj *Date: 11/08/17 *Time: 14:00 Interval history: POD #2 primary CS for breech with PIH No complaints Tolerating regular diet, ambulating and voiding without difficulty Anticipating discharge tomorrow Exam Vital signs and Labs for Last 24 Hours: Temp Pulse Resp BP Pulse Ox 97.8 F 93 H 18 125/84 98 11/08/17 08:30 11/08/17 08:30 11/08/17 08:30 11/08/17 08:30 11/08/17 08:30 I & O for Last 24 hours: Intake & Output 11/06/17 11/07/17 11/08/17 11/09/17 11:59 11:59 11:59 11:59 Intake Total 500 / 500 Balance 500 / 500 Weight 175 lb 175 lb - Constitutional no acute distress - *Routine Respiratory Exam Present: CTA bilaterally. Absent: respiratory distress - *Routine Cardiovascular Exam Absent: tachycardia - *Routine Abdominal Exam Present: soft. Absent: tenderness, distended - *Routine Extremities Exam Absent: edema - *Routine Skin Exam Present: dry, warm - *Routine Neurological Exam Present: alert, oriented X3 - Routine Psychiatric Exam Present: normal affect. Absent: depressed, anxious Assessment and Plan (1) Status post Current visit: Yes Status: Acute Category: Surgical Code(s): Z98.891 - History of uterine scar from previous surgery (2) Breech presentation Current visit: No Status: Acute Category: Medical Code(s): O32.1XX0 - Maternal care for breech presentation, not applicable or unspecified (3) Hypertension affecting in third trimester Current visit: No Status: Acute Category: Medical Code(s): O16.3 - Unspecified maternal hypertension, third trimester (4) Anxiety and depression Current visit: No Status: Acute Category: Medical Code(s): F41.9 - Anxiety disorder, unspecified; F32.9 - Major depressive disorder, single episode , unspecified (5) Rubella non-immune status, antepartum Current visit: No Status: Chronic Category: Medical - Assessment and plan all Dx Assessment and Plan for all problems:: POD #2 Continue routine care Anticipate discharge home tomorrow MMR vaccination prior to discharge
--- NOTE | 2017-11-09 10:14 | Discharge Summary ---
DS: Providers Date of admission: 11/06/17 10:52 Primary care physician: Isabel Alex APRN Attending physician on admission: Stephanie Jules Attending physician on discharge: Stephanie Jules Anticipated date of discharge: 11/09/17 DS: Diagnosis - Discharge Diagnosis (1) Status post Status: Acute (2) Breech presentation Status: Acute (3) Hypertension affecting in third trimester Status: Acute (4) Anxiety and depression Status: Acute (5) Rubella non-immune status, antepartum Status: Chronic DS: Medications - Discharge Medications Prescriptions: New Ibuprofen [Motrin 400mg tablet] 400 mg PO Q4HP PRN tablet PRN Reason: Mild To Moderate Pain Oxycodone HCl [OxyIR 5mg tablet] 5 mg PO Q4HP PRN tablet PRN Reason: Moderate Pain Continue vitamins with calcium no.72-iron 29 mg-folic acid 1 mg tablet 1 tab PO DAILY fluoxetine 10 mg capsule 20 mg PO DAILY Ferrous Sulfate 325 mg PO DAILY Discontinued promethazine 12.5 mg tablet 12.5 mg PO Q6H PRN #14 tab PRN Reason: nausea and vomiting Labetalol HCl [Normodyne 100mg tablet] 100 mg PO BID OB - DS: Summary Hospital course: Ms. Hodge is a 22 year old female s/p primary CS for breech presentation complicated by PIH Postop course uneventful Progressed to regular diet, ambulating and voiding without difficulty RNI and MMR administered Chronic anxiety/depression and taking prozac 20mg No exacerbation and will continue meds at discharge Discharged home on POD #3 - Peripartum Data Procedures: Procedures Operation Date: 11/06/17 13:00 Actual Procedures Side Surgeon p C Section Primary Not Applicable Stephanie Jules MD - Time Spent with Patient Total time spent providing and/or coordinating discharge services: - Quality: AMI Clinical Trial Participant: No - Quality: VTE Documentation of Mechanical Device: SCDs/IPCs Objective Vital signs: Temp Pulse Resp BP Pulse Ox 98.4 F 73 18 136/94 98 11/09/17 07:25 18 07:25 11/09/17 07:25 11/09/17 07:25 11/09/17 07:25 no acute distress - *Routine Respiratory Exam Absent: respiratory distress - *Routine Cardiovascular Exam Absent: tachycardia - *Routine Abdominal Exam Present: soft. Absent: tenderness, distended, guarding (Incision dry/intact with reji) - *Routine Extremities Exam Present: edema (1+). Absent: tenderness - *Routine Skin Exam Absent: rash - *Routine Neurological Exam Present: alert, oriented X3. Absent: altered mental status - Routine Psychiatric Exam Absent: depressed, anxious Discharge Plan - Patient Discharge Instructions ACTIVITY: Limited activity Patient Instructions: Depression, Hemorrhage, Surgical Site Infection, DI for Postoperative Pain, Post Discharge Instructions - Follow up Plan Follow up with: Stephanie Jules MD [Staff Physician] - 11/23/17 9:30 am Disposition: Home, Self-Residential Medications: Home Medications Medication Instructions Recorded Confirmed Type vitamins with calcium 1 tab PO DAILY 04/26/17 11/06/17 History no.72-iron 29 mg-folic acid 1 mg tablet Ferrous Sulfate 325 mg PO DAILY 07/20/17 11/06/17 History fluoxetine 10 mg capsule 20 mg PO DAILY 09/11/17 11/06/17 History Labetalol HCl [Normodyne 100mg 100 mg PO BID 11/02/17 11/06/17 History tablet] Prescriptions/Medication Reconciliation: No Action vitamins with calcium no.72-iron 29 mg-folic acid 1 mg tablet 1 tab PO DAILY fluoxetine 10 mg capsule 20 mg PO DAILY promethazine 12.5 mg tablet 12.5 mg PO Q6H PRN #14 tab PRN Reason: nausea and vomiting Ferrous Sulfate 325 mg PO DAILY Labetalol HCl [Normodyne 100mg tablet] 100 mg PO BID
== END 2017-11-09 14:12 | disposition home or self-care (01) ==
LOC: OB 10:52
PROVIDERS: ADMIT Obstetrics & Gynecology; ATTEND Obstetrics & Gynecology

== ENCOUNTER → 2017-12-27 16:25 | Outpatient (REF) | payer MEDICAID, SELFPAY ==
[2018-01-02 15:25] LABS: Neisseria gonorrhoeae, NAA Negative (Negative)
== END ==
LOC: LAB 16:25
PROVIDERS: Visit Provider Obstetrics & Gynecology
DX: Z30.430 Encounter for insertion of intrauterine contraceptive device (principal)
CPT/HCPCS: 87491; 87591

== ENCOUNTER → 2018-04-10 16:56 | Outpatient (CLI) | payer MEDICAID, SELFPAY ==
[2018-04-13 06:04] LABS: Neisseria gonorrhoeae, NAA Negative (Negative)
== END ==
PROVIDERS: Visit Provider Nurse Practitioner Obstetrics & Gynecology
DX: R10.2 Pelvic and perineal pain (principal)
CPT/HCPCS: 87491; 87591

== ENCOUNTER → 2019-03-01 11:12 | Outpatient (CLI) | payer BC, SELFPAY ==
[2019-03-01 11:34] LABS: Basophils # 0.1 K/mm3 (0-0.2); Basophils % 1.4 % (0.1-2.0); Eosinophils # 0.2 K/mm3 (0.0-0.4); Eosinophils % 5.3 % (0.1-12.0); Hematocrit 42.2 % (37.0-47.0); Hemoglobin 13.5 g/dL (12.2-16.2); Lymphocytes # 1.4 K/mm3 (0.7-4.5); Lymphocytes % 34.1 % (10-50); Mean Corpuscular HGB Conc 31.9 g/dL (31.8-35.4); Mean Corpuscular Hemoglobin 28.4 pg (27.0-31.2); Mean Platelet Volume 7.5 fl (7.4-10.4); Monocytes # 0.3 K/mm3 (0.1-1.0); Monocytes % 6.7 % (1.7-9.3); Neutrophils # 2.2 K/mm3 (1.8-7.8); Neutrophils % 52.5 % (37.0-80.0); Platelet Count 278 K/mm3 (142-424); Red Blood Count 4.74 M/mm3 (4.20-5.40); Red Cell Distribution Width 13.5 % (11.5-17.5); White Blood Count 4.2 K/mm3 (4.8-10.8)
[2019-03-01 12:59] LABS: Free Thyroxine Index 3.4 ug/dL (5.93-13.13); T4 (Thyroxine) 9.7 ug/dl (4.7-13.3); Triiodothryronine (T3) Uptake 35 % (31-39)
== END ==
PROVIDERS: Visit Provider Nurse Practitioner Obstetrics & Gynecology
DX: R53.82 Chronic fatigue, unspecified (principal)
CPT/HCPCS: 36415; 84436; 84443; 84479; 85025

== ENCOUNTER → 2019-06-26 15:42 | Outpatient (CLI) | payer BC, SELFPAY ==
[2019-06-29 08:30] LABS: Neisseria gonorrhoeae, NAA Positive (Negative)
== END ==
PROVIDERS: Visit Provider Nurse Practitioner Obstetrics & Gynecology
DX: R10.2 Pelvic and perineal pain (principal); Z72.51 High risk heterosexual behavior
CPT/HCPCS: 87491; 87591

== ENCOUNTER 2019-07-03 14:07 | Outpatient (CLI) | payer BC, SELFPAY ==
[2019-07-03 14:28] VITALS: BP 138/92; PULSE 88; RESP 18; TEMP 37.1; O2SAT 100
== END 2019-07-03 14:28 | disposition home or self-care (01) ==
LOC: INF 14:07
PROVIDERS: PCP Internal Medicine Adolescent Medicine; Visit Provider Nurse Practitioner Obstetrics & Gynecology
DX: Z72.51 High risk heterosexual behavior (principal)
CPT/HCPCS: 96372

== ENCOUNTER → 2019-08-05 16:04 | Outpatient (CLI) | payer BC, SELFPAY ==
[2019-08-08 11:52] LABS: Neisseria gonorrhoeae, NAA Negative (Negative)
== END ==
PROVIDERS: Visit Provider Nurse Practitioner Obstetrics & Gynecology
DX: Z72.51 High risk heterosexual behavior (principal)
CPT/HCPCS: 87491; 87591

== ENCOUNTER → 2019-10-02 10:12 | Outpatient (CLI) | payer BC, SELFPAY ==
[2019-10-02 11:20] LABS: HCG,Quantitative 17 mIU/ml (0-5.42)
== END ==
PROVIDERS: Visit Provider Nurse Practitioner Obstetrics & Gynecology
DX: Z34.90 Encounter for supervision of normal pregnancy, unspecified, unspecified trimester (principal)
CPT/HCPCS: 36415; 84702

== ENCOUNTER → 2019-10-04 10:43 | Outpatient (CLI) | payer BC, SELFPAY ==
[2019-10-04 15:03] LABS: HCG,Quantitative 39 mIU/ml (0-5.42)
== END ==
PROVIDERS: Visit Provider Nurse Practitioner Obstetrics & Gynecology
DX: Z34.90 Encounter for supervision of normal pregnancy, unspecified, unspecified trimester (principal)
CPT/HCPCS: 36415; 84702

== ENCOUNTER → 2019-10-07 11:42 | Outpatient (CLI) | payer BC, SELFPAY ==
[2019-10-07 13:51] LABS: HCG,Quantitative 139 mIU/ml (0-5.42)
== END ==
PROVIDERS: Visit Provider Nurse Practitioner Obstetrics & Gynecology
DX: Z34.90 Encounter for supervision of normal pregnancy, unspecified, unspecified trimester (principal)
CPT/HCPCS: 36415; 84702

== ENCOUNTER 2019-10-20 20:35 | Emergency (ER) | payer BC, SELFPAY ==
[2019-10-20 20:42] VITALS: BP 119/92; PULSE 92; RESP 14; TEMP 36.6; O2SAT 99; BMI 30.2
--- NOTE | 2019-10-20 20:51 | US_ITS ---
PROCEDURE: US TRANSVAGINAL CLINICAL INDICATION: 6 wks vaginal bleeding COMPARISON: No exams were available for comparison FINDINGS: Uterus was not measured. LEFT OVARY: 6pll0knd2.4cm with a volume of 4.1ml. RIGHT OVARY: 3cmx [id number] with a volume of 6.2ml. The gestational sac is in a low uterine implantation. pole is demonstrated without cardiac activity. There are no abnormal fluid collections. IMPRESSION: Possible impending AB., no cardiac activity demonstrated Dictated by: Landen Ordaz 10/21/2019 09:21 Electronically signed by Landen Ordaz in [place] 10/21/2019 09:21
--- NOTE | 2019-10-20 20:56 | HMH.EDPREG ---
ED Disposition Clinical Impression: Missed Disposition: Home, Self-Care Condition on Discharge: Fair Instructions: DI for Vaginal Bleeding Additional Instructions: pelvic rest and call ob in am Referrals: Anil Kidd MD [Primary Care Provider] - - Critical Care Critical Care Time: No Attestation: On 10/20/19, the high probability of a clinically significant, sudden or life threatening deterioration of the following system(s) required my full and direct attention, intervention and personal management. The time I documented below is in addition to time spent performing reported procedures but includes the following listed in this critical care notation. Medical Decision Making - Medical Records Medical records reviewed: Yes: I reviewed the patient's medical records. - Dannie Inquiry Pt receiving controlled substance: No Vital Signs: 10/20/19 20:42 10/20/19 23:16 Temperature 97.9 F 98.5 F Temperature Source Oral Oral Pulse Rate 84 Pulse Rate [Right Brachial] 92 H Respiratory Rate 14 18 Blood Pressure 139/85 Blood Pressure [Right Arm] 119/92 H Blood Pressure Mean [Right Arm] 101 Blood Pressure Source Automatic Cuff Blood Pressure Source [Right Arm] Automatic Cuff Blood Pressure Position Sitting Blood Pressure Position [Right Arm] Sitting 02 Sat by Pulse Oximetry 99 Oxygen Delivery Method Room Air Room Air - Lab Data Lab results reviewed: Yes: I reviewed the patient's lab results. Lab Results 10/20/19 21:06: WBC 7.7, RBC 4.40, Hgb 13.4, Hct 38.8, MCV 88.0, MCH 30.5, MCHC 34.6, RDW 13.6, Plt Count 263, MPV 7.6, Neut % (Auto) 61.2, Lymph % (Auto) 31.2, [place] % (Auto) 5.4, Eos % (Auto) 1.3, Baso % (Auto) 0.9, Neut # (Auto) 4.7, Lymph # (Auto) 2.4, [place] # (Auto) 0.4, Eos # (Auto) 0.1, Baso # (Auto) 0.1 10/20/19 21:06: Sodium 138, Potassium 4.2, Chloride 104, Carbon Dioxide 29, Anion Gap 9.2, BUN 11, Creatinine 0.60, Estimated Creat Clear 172, Estimated GFR 124, Est GFR ( Amer) 150, Glucose 98, Calcium 9.1, Total Bilirubin 0.3, AST 25, ALT 23, Alkaline Phosphatase 123, Total Protein 7.0, Albumin 4.3, Globulin 2.7, Albumin/Globulin Ratio 1.6, HCG, Quant [id number] H Result diagrams: 10/20/19 21:06 10/20/19 21:06 Orders (Tests/Meds): ORDERS Category Date Time Status US transvaginal Stat Exams 10/20/19 20:51 Taken - US Data US Images: Pelvis ED US Reviewed: Yes: I discussed the US results w/the radiologist Findings Narrative: possible missed ab HPI - General Chief complaint: Vaginal Bleeding Stated complaint: Bleeding/cramps 6 weeks prengant Time Seen by Provider: 10/20/19 20:50 Mode of Arrival: Ambulatory Source of Information: Patient, Spouse, Medical Record Limitations: No Limitations Description of Symptoms (Recalled from ER Triage Doc. by RN): Patient reports she had blood work on 10/01 to confirm she was . Patient reports she is scheduled to have a US tomorrow and see her OB, Dr. Jules on the . Patient reports today she started having some light spotting that has progessively gotten worse throughout the day. Patient reports she is having cramping and passing clots. - History of Present Illness HPI Narrative: [place] with cramps and vag bleeding which started today -has not had u/s as of yet - - no other c/o MD Complaint: vaginal bleeding Onset (ago): hour(s) Consistency: intermittent Severity: moderate Quality: cramping Associated symptoms: denies other symptoms : yes Date of Last Menstrual Period: 6 weeks, 5 days care: followed by OB - Related Data Blood Type: A (+) positive Previous Rx's Medication Instructions Recorded fluoxetine 20 mg capsule 20 mg PO DAILY #30 cap 08/16/19 Allergies Allergy/AdvReac Type Severity Reaction Status Date / Time amoxicillin [AMOXICILLIN] Allergy Unknown Verified 09/03/19 14:04 [facility] History - Hepatitis A Screen Drug use history?: No High risk
--- NOTE | 2019-10-20 21:02 | PC.NURSE ---
ultrasound called in for patient
[2019-10-20 21:14] LABS: Basophils # 0.1 K/mm3 (0-0.2); Basophils % 0.9 % (0.1-2.0); Eosinophils # 0.1 K/mm3 (0.0-0.4); Eosinophils % 1.3 % (0.1-12.0); Hematocrit 38.8 % (37.0-47.0); Hemoglobin 13.4 g/dL (12.2-16.2); Lymphocytes # 2.4 K/mm3 (0.7-4.5); Lymphocytes % 31.2 % (10-50); Mean Corpuscular HGB Conc 34.6 g/dL (31.8-35.4); Mean Corpuscular Hemoglobin 30.5 pg (27.0-31.2); Mean Platelet Volume 7.6 fl (7.4-10.4); Monocytes # 0.4 K/mm3 (0.1-1.0); Monocytes % 5.4 % (1.7-9.3); Neutrophils # 4.7 K/mm3 (1.8-7.8); Neutrophils % 61.2 % (37.0-80.0); Platelet Count 263 K/mm3 (142-424); Red Cell Distribution Width 13.6 % (11.5-17.5); White Blood Count 7.7 K/mm3 (4.8-10.8)
[2019-10-20 21:22] LABS: Chloride 104 mmol/L (98-107); Sodium 138 mmol/L (136-145)
[2019-10-20 21:23] LABS: Potassium 4.2 mmoL/L (3.5-5.1)
[2019-10-20 21:25] LABS: Alanine Aminotransferase 23 U/L (12-78); Albumin Level 4.3 g/dl (3.5-5.0); Albumin/Globulin Ratio 1.6 (1.1-1.8); Alkaline Phosphatase 123 U/L (38-126); Anion Gap 9.2 mEq/L (5-15); Aspartate Amino Transferase 25 U/L (14-36); Bilirubin,Total 0.3 mg/dl (0.2-1.3); Blood Urea Nitrogen 11 mg/dl (7-17); Carbon Dioxide 29 mmol/L (22.0-30.0); Creatinine Clearance Estimated 172 mL/min (50-200); Estimated Glomerular Filt Rate 124 ml/min (>60); GFR (African American) 150 ML/MIN (>60); Globulin 2.7 g/dL (1.3-3.2)
[2019-10-20 21:26] LABS: Calcium 9.1 mg/dl (8.4-10.2); Glucose 98 mg/dl (74-100)
[2019-10-20 21:43] LABS: HCG,Quantitative 2211 mIU/ml (0-5.42)
[2019-10-20 23:16] VITALS: BP 139/85; PULSE 84; RESP 18; TEMP 36.9; O2SAT 99
== END 2019-10-21 00:05 | disposition home or self-care (01) ==
PROVIDERS: Emergency Provider Emergency Medicine; PCP Internal Medicine Adolescent Medicine
DX: O02.1 Missed abortion (principal); F41.8 Other specified anxiety disorders; I10 Essential (primary) hypertension; Z90.09 Acquired absence of other part of head and neck; F17.210 Nicotine dependence, cigarettes, uncomplicated
CPT/HCPCS: 76817; 76830; 80053; 84702; 85025; 99282; 99283

== ENCOUNTER → 2019-10-22 10:46 | Outpatient (CLI) | payer BC, SELFPAY ==
[2019-10-22 11:42] LABS: HCG,Quantitative 363 mIU/ml (0-5.42)
--- NOTE | 2019-10-22 12:29 | US_ITS ---
PROCEDURE: US OB TRANSVAGINAL CLINICAL INDICATION: possible missed AB COMPARISON: US OB TRANSVAGINAL from 10/20/2019 FINDINGS: Retained products of conception are now seen within the cervix. The uterus measures 55 millimeters and is otherwise unremarkable. The endometrium measures 6 millimeters. Both ovaries are of normal size, echogenicity, and Doppler signal. There is no free fluid in the pelvis. The left ovary measures 25 millimeters x 15 millimeters X 18 millimeters. The right ovary measures 27 millimeters x 16 mm x 28 millimeters. Uterus IMPRESSION: Missed AB Dictated by: Landen Ordaz 10/22/2019 13:22 Electronically signed by Landen Ordaz in [place] 10/22/2019 13:22
== END ==
LOC: LAB 10:46 → RAD 12:27
PROVIDERS: PCP Internal Medicine Adolescent Medicine; Visit Provider Obstetrics & Gynecology
DX: Z34.90 Encounter for supervision of normal pregnancy, unspecified, unspecified trimester (principal)
CPT/HCPCS: 36415; 76817; 84702

== ENCOUNTER → 2020-01-07 10:24 | Outpatient (CLI) | payer BC, SELFPAY ==
[2020-01-07 11:35] LABS: HCG,Quantitative 64 mIU/ml (0-5.42)
== END ==
PROVIDERS: Visit Provider Obstetrics & Gynecology
DX: Z34.90 Encounter for supervision of normal pregnancy, unspecified, unspecified trimester (principal)
CPT/HCPCS: 36415; 84702

== ENCOUNTER → 2020-01-09 17:57 | Outpatient (CLI) | payer BC, SELFPAY ==
[2020-01-09 19:17] LABS: HCG,Quantitative 158 mIU/ml (0-5.42)
== END ==
PROVIDERS: Visit Provider Obstetrics & Gynecology
DX: Z34.90 Encounter for supervision of normal pregnancy, unspecified, unspecified trimester (principal)
CPT/HCPCS: 36415; 84702

== ENCOUNTER → 2020-01-20 12:36 | Outpatient (CLI) | payer BC, SELFPAY ==
--- NOTE | 2020-01-20 12:36 | US_ITS ---
PROCEDURE: US OB TRANSVAGINAL CLINICAL INDICATION: US OB Dates COMPARISON: US US OB TRANSVAGINAL from 10/22/2019 FINDINGS: There is an intrauterine gestational sac present with a yolk sac noted and a small pole with a crown-rump length 1.7 mm too small for evaluation. No heart tones evident at this time but may be too early. There is a 1.2 cm left ovarian cyst with small bilateral ovarian follicles and no cul-de-sac fluid. IMPRESSION: There is an intrauterine gestational sac with a tiny pole too small for age determination. Cannot confirm viability at this time. Recommend follow-up exam as well as correlation with beta HCGs. Dictated by: Augusto Sparrow MD 01/20/2020 18:27 Augusto Sparrow MD in [place] 01/20/2020 18:27
== END ==
PROVIDERS: PCP Internal Medicine Adolescent Medicine; Visit Provider Obstetrics & Gynecology
DX: O26.841 Uterine size-date discrepancy, first trimester (principal)
CPT/HCPCS: 76817

== ENCOUNTER → 2020-01-27 13:39 | Outpatient (CLI) | payer BC, SELFPAY ==
--- NOTE | 2020-01-27 13:39 | US_ITS ---
PROCEDURE: US OB TRANSVAGINAL CLINICAL INDICATION: Viability Check viability COMPARISON: US US OB TRANSVAGINAL from 01/20/2020 FINDINGS: An intrauterine gestational sac is present with a pole with a crown-rump length of 0.48cm correlating to gestational age of 6weeks 2days. heart tones are present with an FHR of 119bpm. Yolk sac is noted. The uterus is retroverted. There is a small left corpus luteum cyst at 12 mm. IMPRESSION: Live IUP at 6 weeks 2 days. Estimated due date by Ultrasound is 09/19/2020 Dictated by: Augusto Sparrow MD 01/27/2020 18:37 Augusto Sparrow MD in [place] 01/27/2020 18:37
== END ==
PROVIDERS: PCP Internal Medicine Adolescent Medicine; Visit Provider Obstetrics & Gynecology
DX: O36.80X0 Pregnancy with inconclusive fetal viability, not applicable or unspecified (principal)
CPT/HCPCS: 76817

== ENCOUNTER → 2020-02-24 09:53 | Outpatient (CLI) | payer BC, SELFPAY ==
[2020-02-24 10:37] LABS: Basophils % 0.4 % (0.1-2.0); Eosinophils % 0.7 % (0.1-12.0); Hematocrit 37.9 % (37.0-47.0); Hemoglobin 14.3 g/dL (12.2-16.2); Lymphocytes # 1.4 K/mm3 (0.7-4.5); Lymphocytes % 23.2 % (10-50); Mean Corpuscular HGB Conc 37.9 g/dL (31.8-35.4); Mean Corpuscular Hemoglobin 33.5 pg (27.0-31.2); Mean Corpuscular Volume 88.3 fl (81-99); Mean Platelet Volume 7.6 fl (7.4-10.4); Monocytes # 0.3 K/mm3 (0.1-1.0); Monocytes % 4.4 % (1.7-9.3); Neutrophils # 4.3 K/mm3 (1.8-7.8); Neutrophils % 71.3 % (37.0-80.0); Platelet Count 197 K/mm3 (142-424); Red Blood Count 4.29 M/mm3 (4.20-5.40); Red Cell Distribution Width 13.2 % (11.5-17.5)
[2020-02-24 16:39] LABS: Benzodiazepines Screen,Urine Negative ng/ml (<200)
[2020-02-24 16:40] LABS: Amphetamine/Metha Screen,Urine Negative ng/ml (<1000); Barbiturates Screen,Urine Negative ng/ml (<200)
[2020-02-24 16:41] LABS: Cannabinoid Screen,Urine Positive ng/ml (<50); Cocaine Screen,Urine Negative ng/ml (<300)
[2020-02-24 16:42] LABS: Methadone Screen,Urine Negative ng/ml (<300)
[2020-02-24 16:43] LABS: Opiate Screen,Urine Negative ng/ml (<300); Phencyclidine Screen,Urine Negative ng/ml (<25)
[2020-02-25 14:20] LABS: HIV Screen 4th Generation wRfx Non Reactive (Non Reactive); Hepatitis B Surface Antigen Negative (Negative); Hepatitis C Antibody <0.1 s/co ratio (0.0-0.9); Rapid Plasma Reagin Ab Titer Non Reactive (NonRea<1:1); Rubella Antibodies, IgG 1.31 index (Immune >0.99)
== END ==
PROVIDERS: Visit Provider Obstetrics & Gynecology
DX: Z34.90 Encounter for supervision of normal pregnancy, unspecified, unspecified trimester (principal)
CPT/HCPCS: 36415; 80305; 85025; 86592; 86703; 86762; 86850; 87340; 87380; G0432

== ENCOUNTER 2020-03-04 12:50 | Emergency (ER) | payer BC, SELFPAY ==
[2020-03-04 12:50] VITALS: BP 132/83; PULSE 102; RESP 18; TEMP 36.6; O2SAT 100; BMI 31.1
[2020-03-04 13:07] LABS: Microscopic, Urine URINE MICROSCOPIC (MICROSCOPIC)
--- NOTE | 2020-03-04 13:08 | HMH.EDABDPAI ---
ED Disposition Clinical Impression: Kidney stone Qualifiers: Weeks of gestation: 11 weeks Qualified Code(s): Z3A.11 - 11 weeks gestation of Disposition: Home, Self-Care Condition on Discharge: Good Instructions: DI for Kidney Stones Prescriptions: Tamsulosin HCl [Flomax 0.4mg capsule] 0.4 mg PO HS #10 cap Transmission Status: Pending to [facility] Doxylamine Succinate [Nighttime Sleep-Aid] 25 mg PO TID #20 tab Transmission Status: Pending to [facility] Acetaminophen [Tylenol 500mg tablet] 500 mg PO Q6 #20 tab Transmission Status: Pending to [facility] Referrals: Isabel Alex APRN [Primary Care Provider] - - Critical Care Critical Care Time: No Attestation: On 03/04/20, the high probability of a clinically significant, sudden or life threatening deterioration of the following system(s) required my full and direct attention, intervention and personal management. The time I documented below is in addition to time spent performing reported procedures but includes the following listed in this critical care notation. Medical Decision Making - Medical Records Medical records reviewed: Yes: I reviewed the patient's medical records. - Dannie Inquiry Pt receiving controlled substance: No Vital Signs: 03/04/20 12:50 03/04/20 13:18 03/04/20 14:00 Temperature 97.9 F Temperature Source Temporal Artery Scan Pulse Rate [Right] 102 H 91 H 89 Respiratory Rate 18 Blood Pressure [Right Arm] 132/83 117/83 115/76 Blood Pressure Mean [Right Arm] 99 94 89 Blood Pressure Source [Right Arm] Automatic Cuff Automatic Cuff Blood Pressure Position [Right Arm] Sitting Sitting 02 Sat by Pulse Oximetry 100 99 99 Oxygen Delivery Method Room Air Room Air 03/04/20 14:30 Temperature Temperature Source Pulse Rate [Right] 89 Respiratory Rate Blood Pressure [Right Arm] 125/78 Blood Pressure Mean [Right Arm] 93 Blood Pressure Source [Right Arm] Blood Pressure Position [Right Arm] 02 Sat by Pulse Oximetry 99 Oxygen Delivery Method - Lab Data Lab Results 03/04/20 13:00: Urine Color Yellow, Urine Appearance Clear, Urine pH 7.0, Ur Specific [place] 1.020, Urine Protein Negative, Urine Glucose (UA) Negative, Urine Ketones 1+, Urine Blood 3+, Urine Nitrate Negative, Urine Bilirubin Negative, Urine Urobilinogen 0.2, Ur Leukocyte Esterase Negative, Urine RBC 10-20, Urine WBC 3-5, Ur Squamous Epith Cells 3-5 03/04/20 13:00: Urine HCG, Qual Positive 03/04/20 13:05: WBC 9.1, RBC 4.45, Hgb 12.8, Hct 39.3, MCV 88.3, MCH 28.8, MCHC 32.6, RDW 12.7, Plt Count 271, MPV 6.7 L, Neut % (Auto) 75.1, Lymph % (Auto) 20.0, [place] % (Auto) 3.6, Eos % (Auto) 1.1, Baso % (Auto) 0.3, Neut # (Auto) 6.8, Lymph # (Auto) 1.8, [place] # (Auto) 0.3, Eos # (Auto) 0.1, Baso # (Auto) 0.0 03/04/20 13:05: Sodium 137, Potassium 3.7, Chloride 103, Carbon Dioxide 24, Anion Gap 13.7, BUN 9, Creatinine 0.50 L, Estimated Creat Clear 213, Estimated GFR 153, Est GFR ( Amer) 185, Glucose 87, Calcium 9.7, Total Bilirubin 0.3, AST 26, ALT 15, Alkaline Phosphatase 102, Total Protein 7.5, Albumin 4.4, Globulin 3.1, Albumin/Globulin Ratio 1.4, Amylase 43 03/04/20 13:05: Lipase 53 03/04/20 13:05: HCG, Quant [id number] H Result diagrams: 03/04/20 13:05 03/04/20 13:05 Orders (Tests/Meds): ED MEDICATIONS Discontinued Medications Generic Name Dose Route Start Last Admin Trade Name Freq PRN Reason Stop Dose Admin Acetaminophen 1,000 mg 03/04/20 13:05 03/04/20 13:18 Acetaminophen 500mg Tab PO 03/04/20 13:06 1,000 mg ONCE ONE Administration Diphenhydramine HCl 25 mg 03/04/20 13:05 03/04/20 13:18 Diphenhydramine 50mg/Ml Vial IV 03/04/20 13:06 25 mg ONCE ONE Administration Sodium Chloride 1,000 mls @ 999 mls/hr 03/04/20 13:15 03/04/20 13:21 Sod Chlor 0.9% 1000ml Bag IV 03/04/20 14:15 999 mls/hr .Q1H1M LILIA Administration ORDERS Category Date Time
[2020-03-04 13:11] LABS: Urine Pregnancy, HCG Qual. Positive (Negative)
[2020-03-04 13:14] LABS: Appearance,Urine CLEAR (Clear); Bilirubin,Urine Negative (Negative); Blood, Urine 3+ (Negative); Color,Urine YELLOW (Yellow); Glucose,Urine (UA) Negative (Negative); Ketones,Urine 1+ (Negative); Leukocyte Esterase,Urine Negative (Negative); Nitrate,Urine Negative (Negative); Protein,Urine Negative (Negative); Urobilinogen,Urine 0.2 EU/dl (0.2)
[2020-03-04 13:18] VITALS: BP 117/83; PULSE 91; O2SAT 99
[2020-03-04 13:18] LABS: Basophils % 0.3 % (0.1-2.0); Chloride 103 mmol/L (98-107); Eosinophils # 0.1 K/mm3 (0.0-0.4); Eosinophils % 1.1 % (0.1-12.0); Hematocrit 39.3 % (37.0-47.0); Hemoglobin 12.8 g/dL (12.2-16.2); Lymphocytes # 1.8 K/mm3 (0.7-4.5); Mean Corpuscular HGB Conc 32.6 g/dL (31.8-35.4); Mean Corpuscular Hemoglobin 28.8 pg (27.0-31.2); Mean Corpuscular Volume 88.3 fl (81-99); Mean Platelet Volume 6.7 fl (7.4-10.4); Monocytes # 0.3 K/mm3 (0.1-1.0); Monocytes % 3.6 % (1.7-9.3); Neutrophils # 6.8 K/mm3 (1.8-7.8); Neutrophils % 75.1 % (37.0-80.0); Platelet Count 271 K/mm3 (142-424); Red Blood Count 4.45 M/mm3 (4.20-5.40); Red Cell Distribution Width 12.7 % (11.5-17.5); Sodium 137 mmol/L (136-145); White Blood Count 9.1 K/mm3 (4.8-10.8)
[2020-03-04 13:19] LABS: Potassium 3.7 mmoL/L (3.5-5.1)
[2020-03-04 13:21] LABS: Alanine Aminotransferase 15 U/L (12-78); Albumin Level 4.4 g/dl (3.5-5.0); Albumin/Globulin Ratio 1.4 (1.1-1.8); Amylase 43 U/L (30-110); Anion Gap 13.7 mEq/L (5-15); Aspartate Amino Transferase 26 U/L (14-36); Blood Urea Nitrogen 9 mg/dl (7-17); Calcium 9.7 mg/dl (8.4-10.2); Carbon Dioxide 24 mmol/L (22.0-30.0); Creatinine Clearance Estimated 213 mL/min (50-200); Estimated Glomerular Filt Rate 153 ml/min (>60); GFR (African American) 185 ML/MIN (>60); Globulin 3.1 g/dL (1.3-3.2); Glucose 87 mg/dl (74-100); Lipase 53 U/L (23-300); Total Protein,Serum 7.5 g/dl (6.3-8.2)
--- NOTE | 2020-03-04 13:28 | US_ITS ---
PROCEDURE: US KIDNEY CLINICAL INDICATION: R flank pain COMPARISON: No exams were available for comparison FINDINGS: The right kidney is 12 x 5 x 6 cm. Left kidney is 11 x 4 x 4 cm. There is mild right hydronephrosis IMPRESSION: Mild right hydronephrosis. Dictated by: Augusto Sparrow MD 03/04/2020 15:33 Augusto Sparrow MD in [place] 03/04/2020 15:33
--- NOTE | 2020-03-04 13:28 | US_ITS ---
PROCEDURE: US OB <= 14 WEEKS FETUS CLINICAL INDICATION: R flank pain COMPARISON: US US OB TRANSVAGINAL from 01/27/2020 FINDINGS: An intrauterine gestational sac is present with a pole with a crown-rump length of 5.52cm correlating to gestational age of 12weeks 1day. heart tones are present with an FHR of 176bpm. Yolk sac is noted. IMPRESSION: Live intrauterine gestation at 12 weeks 1 day. Estimated due date by Ultrasound is 09/15/2020 Dictated by: Augusto Sparrow MD 03/04/2020 15:35 Augusto Sparrow MD in [place] 03/04/2020 15:35
--- NOTE | 2020-03-04 13:38 | PC.NURSE ---
rashmi notified of ultrasound order, spoke with tres
--- NOTE | 2020-03-04 13:40 | PC.NURSE ---
pt to ultrasound
[2020-03-04 14:00] VITALS: BP 115/76; PULSE 89; O2SAT 99
[2020-03-04 14:12] LABS: Alkaline Phosphatase 102 U/L (38-126); Bilirubin,Total 0.3 mg/dl (0.2-1.3)
--- NOTE | 2020-03-04 14:15 | PC.NURSE ---
Pt back from US
[2020-03-04 14:30] VITALS: BP 125/78; PULSE 89; O2SAT 99
[2020-03-04 15:06] VITALS: BP 118/74; PULSE 88; RESP 18; TEMP 36.6; O2SAT 99
== END 2020-03-04 15:11 | disposition home or self-care (01) ==
PROVIDERS: Emergency Provider Emergency Medicine; PCP Nurse Practitioner Family
DX: N13.2 Hydronephrosis with renal and ureteral calculous obstruction (principal); Z3A.11 11 weeks gestation of pregnancy; F41.8 Other specified anxiety disorders
CPT/HCPCS: 76770; 76801; 80053; 81001; 81025; 82150; 83690; 84702; 85025; 96365; 96375; 96376; 99283; J2405

== ENCOUNTER 2020-04-07 21:10 | Emergency (ER) | payer BC, SELFPAY ==
[2020-04-07 21:11] VITALS: BP 140/84; PULSE 90; RESP 18; TEMP 37.1; O2SAT 95; BMI 30.2
--- NOTE | 2020-04-07 21:33 | US_ITS ---
PROCEDURE: US OB >= 14 WEEKS FETUS CLINICAL INDICATION: bleeding Light bleeding and cramping the COMPARISON: US US OB <= 14 WEEKS FETUS from 03/04/2020 FINDINGS: There is a live intrauterine noted in breech presentation. Average ultrasound age is 17 weeks 2 days. BPD 17 weeks 2 days, HC 17 weeks 2 days, AC 17 weeks 6 days, FL 16 weeks 3 days. heart and body motion is noted. The placenta is fundal in implantation. Average appearing amniotic fluid volume. The cervix is closed a measuring 3 cm in length. No obvious retroplacental or subchorionic hemorrhage. IMPRESSION: Live IUP at 17 weeks 2 days as described above. Estimated due date by Ultrasound is Dictated by: Augusto Sparrow MD 04/08/2020 05:06 Augusto Sparrow MD in [place] 04/08/2020 05:06
[2020-04-07 21:37] LABS: Microscopic, Urine URINE MICROSCOPIC (MICROSCOPIC)
[2020-04-07 21:39] LABS: Basophils % 0.4 % (0.1-2.0); Eosinophils # 0.1 K/mm3 (0.0-0.4); Eosinophils % 1.1 % (0.1-12.0); Hematocrit 38.9 % (37.0-47.0); Hemoglobin 13.4 g/dL (12.2-16.2); Lymphocytes # 2.9 K/mm3 (0.7-4.5); Mean Corpuscular HGB Conc 34.5 g/dL (31.8-35.4); Mean Corpuscular Hemoglobin 29.8 pg (27.0-31.2); Mean Corpuscular Volume 86.5 fl (81-99); Mean Platelet Volume 7.1 fl (7.4-10.4); Monocytes # 0.5 K/mm3 (0.1-1.0); Monocytes % 4.1 % (1.7-9.3); Neutrophils % 69.5 % (37.0-80.0); Platelet Count 281 K/mm3 (142-424); Red Blood Count 4.49 M/mm3 (4.20-5.40); Red Cell Distribution Width 13.7 % (11.5-17.5); White Blood Count 11.5 K/mm3 (4.8-10.8)
[2020-04-07 21:41] LABS: Appearance,Urine Slightly Cloudy (Clear); Bilirubin,Urine Negative (Negative); Blood, Urine Negative (Negative); Color,Urine YELLOW (Yellow); Glucose,Urine (UA) Negative (Negative); Ketones,Urine Negative (Negative); Leukocyte Esterase,Urine Negative (Negative); Nitrate,Urine Negative (Negative); PH,Urine 7.5 (5.0-8.5); Protein,Urine Negative (Negative); Urobilinogen,Urine 0.2 EU/dl (0.2)
[2020-04-07 21:42] LABS: Chloride 102 mmol/L (98-107); Potassium 3.5 mmoL/L (3.5-5.1); Sodium 136 mmol/L (136-145)
[2020-04-07 21:44] LABS: Alanine Aminotransferase 11 U/L (12-78); Aspartate Amino Transferase 20 U/L (14-36); Blood Urea Nitrogen 9 mg/dl (7-17); Creatinine Clearance Estimated 172 mL/min (50-200); Estimated Glomerular Filt Rate 124 ml/min (>60); GFR (African American) 150 ML/MIN (>60)
[2020-04-07 21:45] LABS: Albumin Level 4.2 g/dl (3.5-5.0); Albumin/Globulin Ratio 1.4 (1.1-1.8); Alkaline Phosphatase 119 U/L (38-126); Anion Gap 10.5 mEq/L (5-15); Bilirubin,Total 0.3 mg/dl (0.2-1.3); Calcium 9.7 mg/dl (8.4-10.2); Carbon Dioxide 27 mmol/L (22.0-30.0); Glucose 83 mg/dl (74-100); Total Protein,Serum 7.2 g/dl (6.3-8.2)
--- NOTE | 2020-04-07 21:51 | PC.NURSE ---
FHR 163
--- NOTE | 2020-04-07 22:14 | HMH.EDPREG ---
ED Disposition Clinical Impression: Vaginal bleeding before 22 weeks gestation Qualifiers: Weeks of gestation: 17 weeks Qualified Code(s): Z3A.17 - 17 weeks gestation of Disposition: Home, Self-Care Condition on Discharge: Good Instructions: DI for Vaginal Bleeding Additional Instructions: call ob in am for follow up Referrals: Isabel Alex APRN [Primary Care Provider] - - Critical Care Critical Care Time: No Attestation: On 04/07/20, the high probability of a clinically significant, sudden or life threatening deterioration of the following system(s) required my full and direct attention, intervention and personal management. The time I documented below is in addition to time spent performing reported procedures but includes the following listed in this critical care notation. Medical Decision Making - Medical Records Medical records reviewed: Yes: I reviewed the patient's medical records. - Dannie Inquiry Pt receiving controlled substance: No Vital Signs: 04/07/20 21:11 Temperature 98.8 F Temperature Source Oral Pulse Rate [Right Brachial] 90 Respiratory Rate 18 Blood Pressure [Right Arm] 140/84 Blood Pressure Mean [Right Arm] 102 02 Sat by Pulse Oximetry 95 Oxygen Delivery Method Room Air - Lab Data Lab results reviewed: Yes: I reviewed the patient's lab results. Lab Results 04/07/20 21:25: Urine Color Yellow, Urine Appearance Slightly cloudy, Urine pH 7.5, Ur Specific [place] 1.020, Urine Protein Negative, Urine Glucose (UA) Negative, Urine Ketones Negative, Urine Blood Negative, Urine Nitrate Negative, Urine Bilirubin Negative, Urine Urobilinogen 0.2, Ur Leukocyte Esterase Negative, Urine WBC 3-5, Ur Squamous Epith Cells 3-5, Urine Bacteria 1+ 04/07/20 21:25: WBC 11.5 H, RBC 4.49, Hgb 13.4, Hct 38.9, MCV 86.5, MCH 29.8, MCHC 34.5, RDW 13.7, Plt Count 281, MPV 7.1 L, Neut % (Auto) 69.5, Lymph % (Auto) 25.0, [place] % (Auto) 4.1, Eos % (Auto) 1.1, Baso % (Auto) 0.4, Neut # (Auto) 8.0 H, Lymph # (Auto) 2.9, [place] # (Auto) 0.5, Eos # (Auto) 0.1, Baso # (Auto) 0.0 04/07/20 21:25: Sodium 136, Potassium 3.5, Chloride 102, Carbon Dioxide 27, Anion Gap 10.5, BUN 9, Creatinine 0.60, Estimated Creat Clear 172, Estimated GFR 124, Est GFR ( Amer) 150, Glucose 83, Calcium 9.7, Total Bilirubin 0.3, AST 20, ALT 11 L, Alkaline Phosphatase 119, Total Protein 7.2, Albumin 4.2, Globulin 3.0, Albumin/Globulin Ratio 1.4, HCG, Quant [id number] H Result diagrams: 04/07/20 21:25 04/07/20 21:25 Orders (Tests/Meds): ORDERS Category Date Time Status Urine Culture Stat Micro 04/07/20 23:00 Ordered US OB transvaginal Stat Ultrasound 04/07/20 21:33 Ordered - US Data US Images: Pelvis ED US Reviewed: Yes: I discussed the US results w/the radiologist Findings Narrative: no issues noted 17 weeks HPI - General Chief complaint: Vaginal Bleeding Stated complaint: 16 wks preg,, bleeding and cramping Time Seen by Provider: 04/07/20 21:45 Mode of Arrival: Ambulatory Source of Information: Patient, Medical Record Limitations: No Limitations Description of Symptoms (Recalled from ER Triage Doc. by RN): pt 16 weeks and c/o light spotting and cramping today after having intercourse last night. - History of Present Illness HPI Narrative: pt with crampy abd pain with spotting - MD Complaint: vaginal bleeding Onset (ago): hour(s) Consistency: intermittent Severity: moderate Quality: cramping Associated symptoms: denies other symptoms Vaginal bleeding: light : Yes Date of Last Menstrual Period: 11/29 - Related Data Blood Type: A (+) positive Previous Rx's Medication Instructions Recorded prenat.vits,steven,thc-snsl-oyqzl 1 tab PO DAILY #90 tab 01/10/20 Acetaminophen [Tylenol 500mg 500 mg PO Q6 #20 tab 03/04/20 tablet] Doxylamine Succinate [Nighttime 25 mg PO TID #20 tab 03/04/20 Sleep-Aid] Tamsulosin HCl [Flomax 0.4mg 0.4 mg PO HS #10 cap 03/04/20 capsule
--- NOTE | 2020-04-07 22:23 | PC.NURSE ---
PT to RAD
[2020-04-07 22:26] LABS: Bacteria,Urine 1+ /lpf
[2020-04-07 22:27] LABS: HCG,Quantitative 16243 mIU/ml (0-5.42)
[2020-04-07 23:10] VITALS: BP 145/79; PULSE 88; RESP 18; TEMP 36.7; O2SAT 97
== END 2020-04-07 23:13 | disposition home or self-care (01) ==
PROVIDERS: Emergency Provider Emergency Medicine; PCP Nurse Practitioner Family
DX: O20.9 Hemorrhage in early pregnancy, unspecified (principal); Z3A.17 17 weeks gestation of pregnancy; Z87.891 Personal history of nicotine dependence; I10 Essential (primary) hypertension; F41.8 Other specified anxiety disorders
CPT/HCPCS: 76805; 80053; 81001; 84702; 85025; 87086; 99283

== ENCOUNTER → 2020-05-04 13:06 | Outpatient (CLI) | payer BC, SELFPAY ==
--- NOTE | 2020-05-04 13:10 | US_ITS ---
PROCEDURE: US OB /MATERNAL DETAIL CLINICAL INDICATION: US OB Complete COMPARISON: US US OB >= 14 WEEKS FETUS from 04/07/2020 FINDINGS: There is a single live fetus present in breech presentation. heart body motion noted. Placenta is posterior and grade 1. The cervix is closed. Complete survey performed and was unremarkable on the submitted images as in PACS. No discrete anomalies identified on survey imaging by technologist. Active fetus. Three-vessel cord with satisfactory umbilical cord insertion. 4- chamber heart noted. Survey of brain & ventricles Unremarkable. Face and neck survey unremarkable. Diaphragm and chest views unremarkable. Abdomen: Both kidneys noted and unremarkable. Stomach noted and satisfactory. Spine: Survey of the spine satisfactory with no anomalies identified nor imaged. Both arms and legs noted. Amniotic Fluid: Adequate. Maternal adnexa: No significant findings. Measurements: Average ultrasound age 20weeks 3days. Gestational Age 20weeks 2days Estimated due date by ultrasound age 0509/18/2020. Estimated weight 353g BPD = 20weeks 4days OFD = 20weeks 6days HC = 20weeks 0days AC = 20weeks 6days FL = 20weeks 1day Growth Percentile= 54percent% Heart Rate = 143bpm Cerebellum = 2.03cm, 20weeks 5days Humerus = 3.11cm, 20weeks 3days HC/AC is 1.11 CI is 0.77 FL/BPD is 0.68 FL/AC is 0.21 IMPRESSION: Live IUP with an average ultrasound age 20 weeks 3 days in breech presentation. No obvious anomalies. Please see above for detail Dictated by: Augusto Sparrow MD 05/05/2020 19:27 Augusto Sparrow MD in [place] 05/05/2020 19:27
== END ==
PROVIDERS: PCP Nurse Practitioner Family; Visit Provider Obstetrics & Gynecology
DX: Z36.0 Encounter for antenatal screening for chromosomal anomalies (principal)
CPT/HCPCS: 76811

== ENCOUNTER → 2020-06-26 10:04 | Outpatient (CLI) | payer BC, SELFPAY ==
[2020-06-26 11:20] LABS: Basophils % 0.3 % (0.1-2.0); Eosinophils # 0.1 K/mm3 (0.0-0.4); Eosinophils % 0.4 % (0.1-12.0); Hematocrit 36.4 % (37.0-47.0); Hemoglobin 11.4 g/dL (12.2-16.2); Lymphocytes # 1.7 K/mm3 (0.7-4.5); Lymphocytes % 14.1 % (10-50); Mean Corpuscular HGB Conc 31.4 g/dL (31.8-35.4); Mean Corpuscular Hemoglobin 29.2 pg (27.0-31.2); Mean Platelet Volume 7.5 fl (7.4-10.4); Monocytes # 0.5 K/mm3 (0.1-1.0); Monocytes % 3.7 % (1.7-9.3); Neutrophils # 9.9 K/mm3 (1.8-7.8); Neutrophils % 81.6 % (37.0-80.0); Platelet Count 299 K/mm3 (142-424); Red Blood Count 3.91 M/mm3 (4.20-5.40); Red Cell Distribution Width 13.4 % (11.5-17.5); White Blood Count 12.1 K/mm3 (4.8-10.8)
[2020-06-26 11:35] LABS: Glucose,Fasting 79 mg/dl (74-100)
[2020-06-26 12:57] LABS: Glucose 1 Hour 119 mg/dL (74-100)
== END ==
PROVIDERS: Visit Provider Obstetrics & Gynecology
DX: Z34.90 Encounter for supervision of normal pregnancy, unspecified, unspecified trimester (principal)
CPT/HCPCS: 36415; 82951; 85025

== ENCOUNTER 2020-08-06 09:38 | Outpatient (CLI) | payer BC, SELFPAY ==
[2020-08-06 09:56] VITALS: BMI 34.0
[2020-08-06 10:11] LABS: Microscopic, Urine URINE MICROSCOPIC (MICROSCOPIC)
[2020-08-06 10:12] LABS: Appearance,Urine CLEAR (Clear); Bilirubin,Urine Negative (Negative); Blood, Urine Negative (Negative); Color,Urine YELLOW (Yellow); Glucose,Urine (UA) Negative (Negative); Ketones,Urine Negative (Negative); Leukocyte Esterase,Urine 1+ (Negative); Nitrate,Urine Negative (Negative); Protein,Urine Negative (Negative); Urobilinogen,Urine 0.2 EU/dl (0.2)
[2020-08-06 10:20] VITALS: BMI 35.3
[2020-08-06 10:20] LABS: Bacteria,Urine Trace /lpf
[2020-08-06 10:30] LABS: Amphetamine/Metha Screen,Urine Negative ng/ml (<1000)
[2020-08-06 10:31] VITALS: BP 131/92; PULSE 99; RESP 18; TEMP 36.7; O2SAT 99
[2020-08-06 10:31] LABS: Barbiturates Screen,Urine Negative ng/ml (<200); Benzodiazepines Screen,Urine Negative ng/ml (<200)
[2020-08-06 10:32] LABS: Cannabinoid Screen,Urine Negative ng/ml (<50); Methadone Screen,Urine Negative ng/ml (<300)
[2020-08-06 10:33] LABS: Cocaine Screen,Urine Negative ng/ml (<300)
[2020-08-06 10:34] LABS: Opiate Screen,Urine Negative ng/ml (<300)
[2020-08-06 10:35] LABS: Phencyclidine Screen,Urine Negative ng/ml (<25)
[2020-08-06 10:43] LABS: Basophils % 0.3 % (0.1-2.0); Eosinophils # 0.1 K/mm3 (0.0-0.4); Eosinophils % 0.8 % (0.1-12.0); Hematocrit 34.2 % (37.0-47.0); Hemoglobin 11.3 g/dL (12.2-16.2); Lymphocytes # 1.9 K/mm3 (0.7-4.5); Mean Corpuscular HGB Conc 32.9 g/dL (31.8-35.4); Mean Corpuscular Hemoglobin 28.4 pg (27.0-31.2); Mean Corpuscular Volume 86.2 fl (81-99); Mean Platelet Volume 7.5 fl (7.4-10.4); Monocytes # 0.5 K/mm3 (0.1-1.0); Monocytes % 4.1 % (1.7-9.3); Neutrophils # 8.9 K/mm3 (1.8-7.8); Neutrophils % 77.9 % (37.0-80.0); Platelet Count 253 K/mm3 (142-424); Red Blood Count 3.97 M/mm3 (4.20-5.40); Red Cell Distribution Width 13.8 % (11.5-17.5); White Blood Count 11.5 K/mm3 (4.8-10.8)
[2020-08-06 10:55] LABS: Total Protein 24 Hour,Urine 217 mg/24 hr (40-90); Total Volume,Urine 1550 mL (600-1600)
[2020-08-06 10:56] LABS: D-Dimer 0.88 ug/mL (0.0-0.5)
[2020-08-06 11:11] LABS: Activated Partial Thrombo Time 29.7 seconds (22.8-30.6); INR 0.85 (0.9-1.1); Prothrombin Time 10.2 seconds (10.1-12.5)
[2020-08-06 11:12] LABS: Fibrinogen 540 mg/dL (229.9-363.5)
[2020-08-06 11:21] LABS: Alanine Aminotransferase 15 U/L (12-78); Anion Gap 12.6 mEq/L (5-15); Aspartate Amino Transferase 25 U/L (14-36); Blood Urea Nitrogen 6 mg/dl (7-17); Calcium 8.8 mg/dl (8.4-10.2); Carbon Dioxide 19 mmol/L (22.0-30.0); Chloride 107 mmol/L (98-107); Creatinine Clearance Estimated 301 mL/min (50-200); Estimated Glomerular Filt Rate 198 ml/min (>60); GFR (African American) 239 ML/MIN (>60); Glucose 111 mg/dl (74-100); Potassium 3.6 mmoL/L (3.5-5.1); Sodium 135 mmol/L (136-145); Uric Acid 2.9 mg/dl (2.5-6.2)
== END 2020-08-06 11:30 | disposition home or self-care (01) ==
LOC: OBOUT 09:41 → OB 09:55
PROVIDERS: PCP Internal Medicine Adolescent Medicine; Visit Provider Obstetrics & Gynecology
DX: Z3A.33 33 weeks gestation of pregnancy; O13.9 Gestational [pregnancy-induced] hypertension without significant proteinuria, unspecified trimester
CPT/HCPCS: 36415; 59025; 80048; 80305; 81001; 84155; 84450; 84460; 84550; 85025; 85378; 85384; 85610; 85730; 87086; G0463

== ENCOUNTER → 2020-08-13 13:47 | Outpatient (CLI) | payer BC, SELFPAY ==
--- NOTE | 2020-08-13 13:47 | US_ITS ---
PROCEDURE: US OB BPP W/FET-MAT S/D CLINICAL INDICATION: Pre-eclampsia COMPARISON: US US OB /MATERNAL DETAIL from 05/04/2020 FINDINGS: There is a single live intrauterine gestation which is in cephalic presentation. The cervix is closed and measures 4 cm in length. The placenta is posterior and grade 2. There is an average amount of amniotic fluid with an SPARKLE of 14 cm. Biophysical profile is 8 of 8. Umbilical artery evaluation demonstrates a resistive index of 0.72 and an SD ratio 3.5. Both the SD ratio and resistive index are 95th percentile for gestational age of 35 weeks. Measurements: Average ultrasound age 35weeks 1day. Gestational Age 34weeks 5days Estimated due date by ultrasound age 0509/16/2020. Estimated weight 2,517g BPD = 35weeks 5days OFD = 36weeks HC = 35weeks 3days AC = 34weeks 5days FL = 34weeks 5days Growth Percentile= 48Percent% Heart Rate = 139bpm Cerebellum = Humerus = HC/AC is 1.03 CI is 0.79 FL/BPD is 0.76 FL/AC is 0.22 IMPRESSION: Live IUP at 35 weeks 1 day. Estimated weight is 2517 g which is 48th percentile. Biophysical profile is 8 of 8 with the SPARKLE 14 cm. SD ratio and resistive index are at 95th percentile Dictated by: Augusto Sparrow MD 08/14/2020 14:47 Augusto Sparrow MD in [facility] 08/14/2020 14:47
== END ==
PROVIDERS: PCP Internal Medicine Adolescent Medicine; Visit Provider Obstetrics & Gynecology
DX: O13.9 Gestational [pregnancy-induced] hypertension without significant proteinuria, unspecified trimester (principal)
CPT/HCPCS: 76811; 76819; 76820

== ENCOUNTER → 2020-08-21 10:25 | Outpatient (CLI) | payer BC, SELFPAY | PROVIDERS: Visit Provider Obstetrics & Gynecology | DX: Z34.90 Encounter for supervision of normal pregnancy, unspecified, unspecified trimester (principal) | CPT/HCPCS: 86403 ==

== ENCOUNTER → 2020-08-26 10:18 | Outpatient (CLI) | payer BC, SELFPAY ==
--- NOTE | 2020-08-26 10:18 | US_ITS ---
PROCEDURE: US OB BIOPHYSICAL PROFILE CLINICAL INDICATION: BPP UA Doppler Pre-eclampsia Cephalic Placenta posterior Cervix and fluid normal Practice breathing and movements seen BPP 8/8 TECHNIQUE: FINDINGS: There is a single live fetus present in cephalic presentation. heart and breathing motion noted. The placenta is posterior and fundal not well delineated. The cervix is closed measuring 3 cm. Amniotic fluid index: 14.25cm Qualitative AFV: 2 breathing movements: 2 Gross body movements: 2 Tone: 2 Biophysical profile score: 8 Doppler evaluation of the umbilical artery: SD ratio: 2.5 Resistive index: 0.6 IMPRESSION: Live IUP in cephalic presentation with a biophysical profile 8 of 8. Normal amniotic fluid index. SD ratio and resistive index are within normal limits Dictated by: Augusto Sparrow MD 08/27/2020 08:58 Augusto Sparrow MD in [facility] 08/27/2020 08:58
== END ==
PROVIDERS: PCP Nurse Practitioner Family; Visit Provider Obstetrics & Gynecology
DX: O36.60X0 Maternal care for excessive fetal growth, unspecified trimester, not applicable or unspecified (principal); Z34.90 Encounter for supervision of normal pregnancy, unspecified, unspecified trimester
CPT/HCPCS: 76819; 76820

== ENCOUNTER 2020-08-26 12:54 | Outpatient (CLI) | payer BC, SELFPAY ==
[2020-08-26 13:05] VITALS: BP 142/102; PULSE 95; RESP 18; TEMP 37.1; O2SAT 99; BMI 36.7
[2020-08-26 13:10] VITALS: BMI 36.7
[2020-08-26 13:16] LABS: Microscopic, Urine URINE MICROSCOPIC (MICROSCOPIC)
[2020-08-26 13:19] LABS: Appearance,Urine CLEAR (Clear); Bilirubin,Urine Negative (Negative); Blood, Urine Negative (Negative); Color,Urine YELLOW (Yellow); Glucose,Urine (UA) Negative (Negative); Ketones,Urine Negative (Negative); Leukocyte Esterase,Urine Negative (Negative); Nitrate,Urine Negative (Negative); Protein,Urine Negative (Negative); Urobilinogen,Urine 0.2 EU/dl (0.2)
[2020-08-26 13:30] LABS: Squamous Epithelial Cell,Urine Occasional #/hpf (0-5)
[2020-08-26 14:28] LABS: Basophils % 0.2 % (0.1-2.0); Eosinophils % 0.4 % (0.1-12.0); Hematocrit 33.2 % (37.0-47.0); Hemoglobin 10.9 g/dL (12.2-16.2); Lymphocytes # 1.9 K/mm3 (0.7-4.5); Lymphocytes % 16.5 % (10-50); Mean Corpuscular HGB Conc 32.8 g/dL (31.8-35.4); Mean Corpuscular Hemoglobin 28.1 pg (27.0-31.2); Mean Corpuscular Volume 85.6 fl (81-99); Mean Platelet Volume 7.6 fl (7.4-10.4); Monocytes # 0.6 K/mm3 (0.1-1.0); Monocytes % 5.5 % (1.7-9.3); Neutrophils % 77.4 % (37.0-80.0); Platelet Count 245 K/mm3 (142-424); Red Blood Count 3.88 M/mm3 (4.20-5.40); Red Cell Distribution Width 14.5 % (11.5-17.5); White Blood Count 11.6 K/mm3 (4.8-10.8)
[2020-08-26 14:34] LABS: Amphetamine/Metha Screen,Urine Negative ng/ml (<1000); Barbiturates Screen,Urine Negative ng/ml (<200)
[2020-08-26 14:35] LABS: Benzodiazepines Screen,Urine Negative ng/ml (<200)
[2020-08-26 14:37] LABS: Cannabinoid Screen,Urine Negative ng/ml (<50)
[2020-08-26 14:38] LABS: Cocaine Screen,Urine Negative ng/ml (<300)
[2020-08-26 14:39] LABS: Methadone Screen,Urine Negative ng/ml (<300); Opiate Screen,Urine Negative ng/ml (<300)
[2020-08-26 14:40] LABS: Phencyclidine Screen,Urine Negative ng/ml (<25)
[2020-08-26 15:14] LABS: INR 0.82 (0.9-1.1); Prothrombin Time 9.8 seconds (10.1-12.5)
[2020-08-26 15:23] LABS: Fibrinogen 578 mg/dL (229.9-363.5)
[2020-08-26 15:28] LABS: Activated Partial Thrombo Time 22.5 seconds (22.8-30.6)
[2020-08-26 15:33] LABS: Anion Gap 10.8 mEq/L (5-15); Blood Urea Nitrogen 6 mg/dl (7-17); Carbon Dioxide 20 mmol/L (22.0-30.0); Chloride 108 mmol/L (98-107); Creatinine Clearance Estimated 252 mL/min (50-200); Estimated Glomerular Filt Rate 153 ml/min (>60); GFR (African American) 185 ML/MIN (>60); Glucose 88 mg/dl (74-100); Potassium 3.8 mmoL/L (3.5-5.1); Sodium 135 mmol/L (136-145); Uric Acid 3.1 mg/dl (2.5-6.2)
[2020-08-26 15:34] LABS: Alanine Aminotransferase 12 U/L (12-78); Aspartate Amino Transferase 21 U/L (14-36); NT Pro Brain Natriuretic Pep. 38.4 pg/mL (0-125)
--- NOTE | 2020-08-26 17:48 | HMH.ACPN2 ---
Internal Medicine - PN: Subj *Date: 08/26/20 *Time: 17:48 Interval history: She is a 24-year-old 3 para 1 aborta 1 who is currently 36 weeks gestational age. She has been followed throughout the with chronic hypertension. She has been taking labetalol 100 mg twice daily. She came into labor and delivery complaining about mild headache, epigastric pain and scotomata. Her blood pressures were found to be in the 150/100 range. Exam Vital signs and Labs for Last 24 Hours: Temp Pulse Resp BP Pulse Ox 98.8 F 95 H 18 142/102 H 99 08/26/20 13:05 08/26/20 13:05 08/26/20 13:05 08/26/20 13:05 08/26/20 13:05 Laboratory Results - last 24 hr 08/26/20 13:04: Urine Color Yellow, Urine Appearance Clear, Urine pH 7.0, Ur Specific [place] 1.010, Urine Protein Negative, Urine Glucose (UA) Negative, Urine Ketones Negative, Urine Blood Negative, Urine Nitrate Negative, Urine Bilirubin Negative, Urine Urobilinogen 0.2, Ur Leukocyte Esterase Negative, Urine RBC None, Urine WBC 3-5, Ur Squamous Epith Cells Occasional, Urine Bacteria None 08/26/20 13:04: Urine Opiates Screen Negative, Urine Methadone Screen Negative, Ur Barbituates Screen Negative, Ur Phencyclidine Scrn Negative, Ur Amphetamines Screen Negative, U Benzodiazepines Scrn Negative, Urine Cocaine Screen Negative, U Marijuana (THC) Screen Negative 08/26/20 13:45: WBC 11.6 H, RBC 3.88 L, Hgb 10.9 L, Hct 33.2 L, MCV 85.6, MCH 28.1, MCHC 32.8, RDW 14.5, Plt Count 245, MPV 7.6, Neut % (Auto) 77.4, Lymph % (Auto) 16.5, [place] % (Auto) 5.5, Eos % (Auto) 0.4, Baso % (Auto) 0.2, Neut # (Auto) 9.0 H, Lymph # (Auto) 1.9, [place] # (Auto) 0.6, Eos # (Auto) 0.0, Baso # (Auto) 0.0 08/26/20 13:45: D-Dimer 1.10 H, Sodium 135 L, Potassium 3.8, Chloride 108 H, Carbon Dioxide 20 L, Anion Gap 10.8, BUN 6 L, Creatinine 0.50 L, Estimated Creat Clear 252, Estimated GFR 153, Est GFR ( Amer) 185, Glucose 88, Uric Acid 3.1, Calcium 9.0, AST 21, ALT 12, NT-Pro-B Natriuret Pep 38.4 08/26/20 14:23: PT 9.8 L, INR 0.82 L, APTT 22.5 L, Fibrinogen 578 H I & O for Last 24 hours: Intake & Output 08/24/20 08/25/20 08/26/20 08/27/20 11:59 11:59 11:59 11:59 Weight 201 lb - Constitutional no acute distress - *Routine HEENT Exam Head: Present: normocephalic Eye: Present: EOMI, PERRL ENT: Present: mucous membranes moist - *Routine Neck Exam Present: supple. Absent: lymphadenopathy - *Routine Abdominal Exam Present: soft, normoactive bowel sounds. Absent: tenderness - *Routine Neurological Exam Present: alert, oriented X3, normal reflexes Assessment and Plan (1) Gestational hypertension Status: Acute Category: Medical Code(s): O13.9 - Gestational [-induced] hypertension without significant proteinuria, unspecified trimester - Assessment and plan all Dx Assessment and Plan for all problems:: We did routine blood work and it was all completely normal. There was no proteinuria. Liver function tests, uric acid and Bn P. We gave her 200 mg of labetalol and this seemed to help with her blood pressure. Her blood pressure settled to 130s over 80s. Her headache resolved with the Tylenol. Given the fact that she has now resolved with her blood pressure we will plan to send her home. I suspect she has chronic hypertension with a labile component. She may have a early -induced hypertension. She has stabilized though with the labetalol. We will send her home with labetalol 200 mg 3 times daily. She has an appointment with Dr. Jules in 48 hours.
== END 2020-08-26 16:34 | disposition home or self-care (01) ==
LOC: OBOUT 12:57 → OB 12:59
PROVIDERS: PCP Nurse Practitioner Family; Visit Provider Nurse Practitioner Obstetrics & Gynecology
DX: O13.9 Gestational [pregnancy-induced] hypertension without significant proteinuria, unspecified trimester (principal); R42 Dizziness and giddiness; Z3A.36 36 weeks gestation of pregnancy
CPT/HCPCS: 36415; 80048; 80305; 81001; 83880; 84450; 84460; 84550; 85025; 85378; 85384; 85610; 85730

== ENCOUNTER → 2020-08-31 09:54 | Outpatient (CLI) | payer BC, SELFPAY ==
[2020-08-31 11:02] LABS: Basophils % 0.2 % (0.1-2.0); Eosinophils % 0.4 % (0.1-12.0); Hematocrit 32.6 % (37.0-47.0); Hemoglobin 10.8 g/dL (12.2-16.2); Lymphocytes # 1.7 K/mm3 (0.7-4.5); Lymphocytes % 18.2 % (10-50); Mean Corpuscular Hemoglobin 27.9 pg (27.0-31.2); Mean Corpuscular Volume 84.8 fl (81-99); Mean Platelet Volume 7.8 fl (7.4-10.4); Monocytes # 0.4 K/mm3 (0.1-1.0); Monocytes % 4.7 % (1.7-9.3); Neutrophils # 7.2 K/mm3 (1.8-7.8); Neutrophils % 76.5 % (37.0-80.0); Platelet Count 215 K/mm3 (142-424); Red Blood Count 3.85 M/mm3 (4.20-5.40); Red Cell Distribution Width 14.4 % (11.5-17.5); White Blood Count 9.4 K/mm3 (4.8-10.8)
[2020-08-31 11:40] LABS: Chloride 106 mmol/L (98-107); Potassium 3.9 mmoL/L (3.5-5.1); Sodium 132 mmol/L (136-145)
[2020-08-31 11:43] LABS: Alanine Aminotransferase 14 U/L (12-78); Albumin/Globulin Ratio 1.1 (1.1-1.8); Alkaline Phosphatase 289 U/L (38-126); Anion Gap 9.9 mEq/L (5-15); Aspartate Amino Transferase 20 U/L (14-36); Bilirubin,Total 0.3 mg/dl (0.2-1.3); Blood Urea Nitrogen 9 mg/dl (7-17); Calcium 8.9 mg/dl (8.4-10.2); Carbon Dioxide 20 mmol/L (22.0-30.0); Estimated Glomerular Filt Rate 153 ml/min (>60); GFR (African American) 185 ML/MIN (>60); Globulin 2.8 g/dL (1.3-3.2); Glucose 96 mg/dl (74-100); Total Protein,Serum 5.8 g/dl (6.3-8.2)
== END ==
PROVIDERS: PCP Nurse Practitioner Family; Visit Provider Obstetrics & Gynecology
DX: Z34.90 Encounter for supervision of normal pregnancy, unspecified, unspecified trimester (principal)
CPT/HCPCS: 36415; 80053; 84155; 85025; 86850; U0003

== ENCOUNTER 2020-09-01 04:41 | Inpatient (IN) | payer BC, SELFPAY ==
[2020-09-01] VITALS (11 sets, daily range): BP systolic 117–146; BP diastolic 68–94; PULSE 81–101; RESP 12–20; TEMP 36.1–37; O2SAT 96–100; BMI 36.0
[2020-09-01 06:00] LABS: Microscopic, Urine URINE MICROSCOPIC (MICROSCOPIC)
[2020-09-01 06:11] LABS: Bilirubin,Urine Negative (Negative); Blood, Urine Negative (Negative); Color,Urine YELLOW (Yellow); Glucose,Urine (UA) Negative (Negative); Ketones,Urine Negative (Negative); Leukocyte Esterase,Urine 1+ (Negative); Nitrate,Urine Negative (Negative); PH,Urine 6.5 (5.0-8.5); Protein,Urine Negative (Negative); Specific Gravity, Urine 1.025 (1.005-1.030); Urobilinogen,Urine 0.2 EU/dl (0.2)
[2020-09-01 06:12] LABS: Appearance,Urine Slightly Cloudy (Clear)
[2020-09-01 06:17] LABS: Bacteria,Urine 2+ /lpf; Mucus,Urine 1+ /lpf
[2020-09-01 07:04] LABS: Barbiturates Screen,Urine Negative ng/ml (<200); Benzodiazepines Screen,Urine Negative ng/ml (<200)
[2020-09-01 07:05] LABS: Amphetamine/Metha Screen,Urine Negative ng/ml (<1000)
[2020-09-01 07:06] LABS: Cannabinoid Screen,Urine Negative ng/ml (<50); Methadone Screen,Urine Negative ng/ml (<300)
[2020-09-01 07:07] LABS: Cocaine Screen,Urine Negative ng/ml (<300)
[2020-09-01 07:08] LABS: Opiate Screen,Urine Negative ng/ml (<300)
[2020-09-01 07:09] LABS: Phencyclidine Screen,Urine Negative ng/ml (<25)
--- NOTE | 2020-09-01 07:11 | HMH.ANESCL ---
[facility] Anesthesia Checklist - Patient Identification Patient Identification: Arm Band - Structural Data Admitted From: Inpatient Planned Operative Procedure/s: Scheduled Consent for Planned Operative Procedure(s) Verified: Yes Verified Documents: Surgical Consent, History and Physical - NPO Status Verified Time NPO: 00:00 - Additional verifications Anesthesia Reactions: No Hx Blood Transfusions: No Blood Transfusion Reaction: No - Airway Assessment C-Spine Mobility Assessed: Yes TMJ Mobility Assessed: Yes Dentition: Good Dentition - Neurological Assessment Level of Consciousness: Awake, Alert - Anesthesia Plan Anesthesia Risk discussed: Yes Anesthesia Plan: Verified ASA Class: II Anesthesia Type: Spinal [facility] History Medical History: Reports:: Anxiety, Depression, Hypertension Denies:: Asthma, Cancer, Diabetes Mellitus Type 1, Diabetes Mellitus Type 2, Internal Pacemaker, MRSA, Seizures *Have you ever received a pneumonia vaccine?: No *Have you received a flu vaccine this season?: No Other Medical History: Denies: Blood Transfusion Reaction Anesthesia experience/problems:: None Laterality Cases: Left: Other, Bilateral: Tonsillectomy Other Surgeries: Yes: No Previous Surgery, . No: Pacemaker Amputation: No Fractures: No - *Social History Smoking Status: Former smoker Tobacco Type: cigarettes # Packs/Day (cigarettes): 1 Alcohol Intake: current Alcohol Intake Frequency:: other Substance Use Type: marijuana *Occupational Status:: unemployed Housing: apartment Household Members: children *Travel in the last 8 weeks: Inside the [place] - Psychiatric History Pschychiatric History:: Reports:: Anxiety, Depression Family Hx:: Cancer, Diabetes, Heart Attack, Hypertension
--- NOTE | 2020-09-01 07:46 | HMH.PHAINT ---
MEDICATION RECONCILIATION COMPLETED ON PATIENT USING EXTERNAL FILL HISTORY FROM PHARMACY. -AVINASH HOGAN, MARIAJOSED
--- NOTE | 2020-09-01 08:05 | HMH.HP ---
*Admission Date: 09/01/20 *Chief complaint: repeat c section *History of present illness: 24 yo @ 37+ weeks scheduled c section GHTN with worsening blood pressures requiring multiple medication changes [facility] History I have reviewed the patient's past medical history: Yes Medical History: Reports:: Anxiety, Depression, Hypertension Denies:: Asthma, Cancer, Diabetes Mellitus Type 1, Diabetes Mellitus Type 2, Internal Pacemaker, MRSA, Seizures *Have you ever received a pneumonia vaccine?: No *Have you received a flu vaccine this season?: No Other Medical History: Denies: Blood Transfusion Reaction Anesthesia experience/problems:: None Laterality Cases: Left: Other, Bilateral: Tonsillectomy Other Surgeries: Yes: No Previous Surgery, . No: Pacemaker Amputation: No Fractures: No - *Social History Smoking Status: Former smoker Tobacco Type: cigarettes # Packs/Day (cigarettes): 1 Alcohol Intake: current Alcohol Intake Frequency:: other Substance Use Type: marijuana *Occupational Status:: employed Housing: apartment Household Members: children *Travel in the last 8 weeks: None - Psychiatric History Pschychiatric History:: Reports:: Anxiety, Depression Family Hx:: Cancer, Diabetes, Heart Attack, Hypertension Para: 1 Review of Systems - Review of Systems Review of systems:: pertinent systems reviewed and negative unless documented below Meds Home Medications Medication Instructions Recorded Confirmed Type labetalol 200 mg tablet 200 mg PO TID tab 08/27/20 09/01/20 History Fluoxetine HCl [Prozac] 20 mg PO DAILY 09/01/20 09/01/20 History Lurasidone HCl [Latuda] 40 mg PO HS 09/01/20 09/01/20 History Ondansetron [Zofran 4mg ODT] 4 mg PO Q4HP PRN 09/01/20 09/01/20 History Allergies Allergy/AdvReac Type Severity Reaction Status Date / Time amoxicillin [AMOXICILLIN] Allergy Unknown Verified 08/27/20 13:26 Exam Vital signs and Labs for Last 24 Hours: Temp Pulse Resp BP Pulse Ox 97.0 F L 81 18 126/83 100 09/01/20 09:30 09/01/20 09:30 09/01/20 09:30 09/01/20 09:30 09/01/20 09:30 Laboratory Results - last 24 hr 09/01/20 05:20: Urine Color Yellow, Urine Appearance Slightly cloudy, Urine pH 6.5, Ur Specific [place] 1.025, Urine Protein Negative, Urine Glucose (UA) Negative, Urine Ketones Negative, Urine Blood Negative, Urine Nitrate Negative, Urine Bilirubin Negative, Urine Urobilinogen 0.2, Ur Leukocyte Esterase 1+ A, Urine RBC 3-5, Urine WBC 10-20, Ur Squamous Epith Cells 5-10, Urine Bacteria 2+, Urine Mucus 1+ 09/01/20 05:20: Urine Opiates Screen Negative, Urine Methadone Screen Negative, Ur Barbituates Screen Negative, Ur Phencyclidine Scrn Negative, Ur Amphetamines Screen Negative, U Benzodiazepines Scrn Negative, Urine Cocaine Screen Negative, U Marijuana (THC) Screen Negative 09/01/20 08:05: Urine Color Yellow, Urine Appearance Clear, Urine pH 7.0, Ur Specific [place] 1.010, Urine Protein Negative, Urine Glucose (UA) Negative, Urine Ketones Negative, Urine Blood Negative, Urine Nitrate Negative, Urine Bilirubin Negative, Urine Urobilinogen 0.2, Ur Leukocyte Esterase Negative I & O for Last 24 hours: Intake & Output 08/30/20 08/31/20 09/01/20 09/02/20 11:59 11:59 11:59 11:59 Intake Total 1800 / 1800 Output Total 175 / 175 Balance 1625 / 1625 Weight 197 lb - *Routine HEENT Exam Head: Present: normocephalic Eye: Present: EOMI. Absent: conjunctival icterus ENT: Present: mucous membranes moist - *Routine Neck Exam Present: supple. Absent: lymphadenopathy - *Routine Respiratory Exam Present: CTA bilaterally - *Routine Cardiovascular Exam Present: RRR - *Routine Abdominal Exam Present: soft, normoactive bowel sounds. Absent: tenderness - *Routine Exam Patient deferred: external exam - *Routine Extremities Exam Absent: cyanosis, clubbing, edema - *Routine Skin Exam Present: warm. Absent: rash - *Routine Neurological Exam Present: russell
--- NOTE | 2020-09-01 09:06 | P.PN_ITS ---
[facility] Anesthesia Record Part I Intake, IV Amount: 1,800 Estimated blood loss (mL): 600 Urine output (mL): 400 Blood Pressure: 126/70 SaO2: 98 Pulse Rate: 95 Respiratory Rate: 12 Temperature: 97.5 F Patient is:: Awake, Stable Stable to PACU at:: 09:00
--- NOTE | 2020-09-01 10:15 | HMH.OPNOTE ---
Date of procedure: 09/01/20 Pre-op Diagnosis:: 1. 37 weeks gestation 2. Gestational hypertension 3. Previous C Section Post-op Diagnosis:: same Procedure performed:: Repeat Low Transverse C Section Surgeon:: Stephanie Jules MD Locomotive Repairer Diesel(s):: Andrzej Guthrie DRY CANS BACK TENDER:: Negrito Tiwari Anesthesia: spinal Estimated blood loss (mL): 600 Operative findings:: vigorous live born male infant grossly normal uterus, fallopian tubes and ovaries Operative note:: The patient was taken to the OR and spinal was administered without difficulty. She was prepped and draped in normal sterile fashion. A pfannenstiel skin incision was made with the scalpel and carried down to the fascia. The fascia was incised in the midline and sharply dissected off the rectus muscles. The muscles were in the midline and the peritoneum was entered sharply and extended bluntly. The Tre-O self retaining retractor was placed in the abdomen and a bladder flap was created. The bladder adhesions extended up to the lower uterine segment, but were easily reduced with sharp and blunt dissection. The uterus was incised in the lower uterine segment in a transverse fashion and extended bluntly. Amniotomy was performed and clear fluid noted. The infant was delivered in controlled fashion, without complication or shoulder dystocia. The infant was vigorous at and handed to awaiting snowmobile mechanic for evaluation after cord clamped and cut. Cord blood was collected and a cord segment was preserved. The placenta was manually extracted and noted to be intact. The uterus was repaired with 0-vicryl in a running/locked fashion. The peritoneum was closed with 2-0 vicryl in a running fashion. The fascia was closed with #1 vicryl in a running fashion. The subcutaneous fat was closed with 2-0 vicryl in an interrupted fashion. The skin was closed with stratafix suture. The patient tolerated the procedure well. Sponge, lap, needle and instrument counts were correct x 2. She was taken to PACU awake and in stable condition. Condition: stable Disposition: PACU Specimens:: placenta Complications:: none
[2020-09-01 11:29] LABS: Microscopic,Cath URINE MICROSCOPIC (MICROSCOPIC)
[2020-09-01 11:31] LABS: Appearance,Urine/Cath CLEAR (Clear); Bilirubin,Cath Negative (Negative); Blood, Urine/Cath Negative (Negative); Color,Urine/Cath YELLOW (Yellow); Glucose,Urine/Cath (UA) Negative (Negative); Ketones,Urine/Cath Negative (Negative); Leukocyte Esterase,Cath Negative (Negative); Nitrate,Cath Negative (Negative); Protein,Urine/Cath Negative (Negative); Urobilinogen,Cath 0.2 EU/dl (0.2)
[2020-09-01 12:06] LABS: RBC,Urine/Cath Occasional # /hpf (0-3); Squamous Epithelial Ur./Cath Occasional #/hpf (0-5)
--- NOTE | 2020-09-01 12:49 | P.PN_ITS ---
[facility] Anesthesia Record Part II Discharge Time: 09:30 Destination: Obstetric PACU nurse assessment reviewed?: Yes Patient Condition:: Good Anesthesia Complications:: None Swallowing reflex intact?: Yes Cyanosis?: No Blood Pressure: 126/83 Pulse Rate: 81 Temperature: 97 F Mental Status: Alert & Oriented Pain level:: 0 Nausea and/or vomitting:: None Intake, IV Amount: 0
--- NOTE | 2020-09-01 13:21 | HMH.PHAVTE ---
[facility] VTE Monitoring - Patient Demographics Admission date: 09/01/20 Report Date: 09/01/20 Time: 13:22 Allergies/Adverse Reactions: Patient Allergies amoxicillin [AMOXICILLIN] Allergy (Unknown, Verified 08/27/20 13:26) Height: 1.57 m Weight: 89.358 kg Patient Problems: Current Active Problems 37 weeks gestation of (Acute) Gestational hypertension (Acute) Depression affecting (Acute) Previous section (Acute) - Prophylaxis VTE Prophylaxis Ordered?: Yes Types of VTE Prophylaxis: IPCS Thigh High Location of Applied Device: Bilateral Lower Extremeties
[2020-09-02 00:02] VITALS: BP 130/85; PULSE 76; RESP 18; TEMP 37.2
[2020-09-02 04:30] VITALS: BP 128/82; PULSE 93; RESP 18; TEMP 36.7; O2SAT 99
[2020-09-02 07:00] VITALS: BP 121/87; PULSE 100; RESP 20; TEMP 36.7; O2SAT 100
[2020-09-02 07:15] LABS: Hematocrit 29.3 % (37.0-47.0); Hemoglobin 9.6 g/dL (12.2-16.2)
[2020-09-02 10:35] VITALS: RESP 18
--- NOTE | 2020-09-02 11:27 | P.PN_ITS ---
Internal Medicine - PN: Subj *Date: 09/02/20 *Time: 11:27 Interval history: POD #1 repeat LTCS No unusual complaints Tolerating regular diet Ambulating and voiding without difficulty Lochia appropriate Exam Vital signs and Labs for Last 24 Hours: Temp Pulse Resp BP Pulse Ox 98.1 F 100 H 18 121/87 100 09/02/20 07:00 09/02/20 07:00 09/02/20 10:35 09/02/20 07:00 09/02/20 07:00 Laboratory Results - last 24 hr 09/01/20 08:05: Urine Color Yellow, Urine Appearance Clear, Urine pH 7.0, Ur Specific [place] 1.010, Urine Protein Negative, Urine Glucose (UA) Negative, Urine Ketones Negative, Urine Blood Negative, Urine Nitrate Negative, Urine Bilirubin Negative, Urine Urobilinogen 0.2, Ur Leukocyte Esterase Negative, Urine RBC Occasional, Urine WBC 3-5, Ur Squamous Epith Cells Occasional, Urine Bacteria None 09/02/20 06:38: Hgb 9.6 L, Hct 29.3 L I & O for Last 24 hours: Intake & Output 08/30/20 08/31/20 09/01/20 09/02/20 11:59 11:59 11:59 11:59 Intake Total 1800 / 1800 0 / 0 Output Total 175 / 175 800 / 800 Balance 1625 / 1625 -800 / -800 Weight 197 lb Microbiology Reports for the Last 24 Hours: Microbiology 09/01/20 05:20 Urine,Clean Catch Urine Culture - Preliminary Narrative: CONSTITUTIONAL: no acute distress HEENT: mucous membranes moist PULMONARY: breathing unlabored without audible wheezes CV: no tachycardia or visible JVD; normal LE peripheral pulses ABD: soft, ND; appropriately tender but no rebound/guarding : fundus firm at/below umbilicus SKIN: incision well approximated with no drainage, erythema or induration EXT: 1+ edema LEs NEURO: alert/oriented, no altered mental status PSYCH: appropriate mood and demeanor Assessment and Plan (1) 37 weeks gestation of Status: Acute Category: Medical Code(s): Z3A.37 - 37 weeks gestation of (2) Depression affecting Status: Acute Category: Medical Code(s): O99.340 - Other mental disorders complicating , unspecified trimester; F32.9 - Major depressive disorde r, single episode, unspecified (3) Gestational hypertension Status: Acute Category: Medical Code(s): O13.9 - Gestational [- induced] hypertension without significant proteinuria, unspecified trimester (4) Previous section Status: Acute Category: Surgical Code(s): Z98.891 - History of uterine scar from previous surgery - Assessment and plan all Dx Assessment and Plan for all problems:: Routine postop care PNV with FeSO4
[2020-09-02 14:22] VITALS: RESP 18
--- NOTE | 2020-09-02 14:45 | SW/DCPLANNER ---
RECEIVED REFERRAL ON THIS PATIENT THAT PRESENTED IN FOR AND DELIVERED A LIVE BORN MALE.. BOTH PATIENT AND ARE DOING WELL.. HER REFERRAL WAS TRIGGERED R/T ONE TIME [facility] EARLY IN ... I WENT BACK TO SEE PATIENT AND SPEAK WITH NURSE, NURSE STATED PATIENT IS VERY ATTENTIVE AND SO IS BABY'S FATHER WHOM IS AT BEDSIDE.. SHE HAS ANOTHER CHILD, A THREE YEAR OLD GIRL THAT SHE HAS CUSTODY OF SHE PLANS TO BOTTLE FEED, USE WIC AND HANDS WAS OFFERED. SHE HAS EVERYTHING SHE NEEDS TO TAKE HER INFANT HOME. SHE CHOSE [facility] DANISHBERN[facility] FOR THE INFANTS NAME.. FATHERS NAME IS RACHEL SHEPPARD, HER STAY SHOULD BE SHORT MAY DISCHARGE ON MONDAY PENDING PATIENT HAS NO SETBACK.. INFANTS UDS WAS NEGATIVE AND SO WAS PATIENTS.. A CORD WAS COLLECTED AND WAS SENT OFF, IF IT SHOULD COME BACK WITH POSITIVE DRUGS IT WILL BE REPORTED FOR INVESTIGATION..OTHERWISE THERE IS NO REASON TO MAKE A REFERRAL AT THIS TIME...
[2020-09-02 19:33] VITALS: BP 131/85; PULSE 91; RESP 18; TEMP 36.4; O2SAT 99
[2020-09-03 04:52] VITALS: BP 131/94; PULSE 93; RESP 17; TEMP 36.6; O2SAT 98
--- NOTE | 2020-09-03 09:03 | P.PN_ITS ---
Internal Medicine - PN: Subj *Date: 09/03/20 *Time: 09:03 Interval history: POD #2 repeat CS no complaints tolerating regular diet ambulating and voiding without difficulty lochia normal Exam Vital signs and Labs for Last 24 Hours: Temp Pulse Resp BP Pulse Ox 97.8 F 93 H 17 131/94 H 98 09/03/20 04:52 09/03/20 04:52 09/03/20 04:52 09/03/20 04:52 09/03/20 04:52 I & O for Last 24 hours: Intake & Output 08/31/20 09/01/20 09/02/20 09/03/20 11:59 11:59 11:59 11:59 Intake Total 1800 / 1800 0 / 0 Output Total 175 / 175 800 / 800 Balance 1625 / 1625 -800 / -800 Weight 197 lb Microbiology Reports for the Last 24 Hours: Microbiology 09/01/20 05:20 Urine,Clean Catch Urine Culture - Preliminary Narrative: CONSTITUTIONAL: no acute distress HEENT: mucous membranes moist PULMONARY: breathing unlabored without audible wheezes CV: no tachycardia or visible JVD; normal LE peripheral pulses ABD: soft, ND; appropriately tender but no rebound/guarding : fundus firm at/below umbilicus SKIN: incision well approximated with no drainage, erythema or induration EXT: 1+ edema LEs NEURO: alert/oriented, no altered mental status PSYCH: appropriate mood and demeanor without anxiety/depression Assessment and Plan (1) 37 weeks gestation of Status: Acute Category: Medical Code(s): Z3A.37 - 37 weeks gestation of (2) Depression affecting Status: Acute Category: Medical Code(s): O99.340 - Other mental disorders complicating , unspecified trimester; F32.9 - Major depressive disorder, single episode, unspecified (3) Gestational hypertension Status: Acute Category: Medical Code(s): O13.9 - Gestational [- induced] hypertension without significant proteinuria, unspecified trimester (4) Previous section Status: Acute Category: Surgical Code(s): Z98.891 - History of uterine scar from previous surgery - Assessment and plan all Dx Assessment and Plan for all problems:: Continue routine postop care Anticipate discharge home tomorrow
[2020-09-04 08:01] VITALS: BP 141/88; PULSE 96; RESP 20; TEMP 37.1; O2SAT 97
--- NOTE | 2020-09-04 11:21 | HMH.OBDCSM ---
General - General Admission date:: 09/01/20 Discharge date: 09/04/20 Hospital Course Hospital Course: Admitted for repeat CS complicated by gestational hypertension Postoperative course uneventful Tolerating regular diet, ambulating and voiding without difficulty Discharged home in stable condition on POD #3 Rhogam Administration: Not Indicated Objective Vital signs: Temp Pulse Resp BP Pulse Ox 98.7 F 96 H 20 141/88 H 97 09/04/20 08:01 09/04/20 08:01 09/04/20 08:01 09/04/20 08:01 09/04/20 08:01 Narrative: CONSTITUTIONAL: no acute distress HEENT: mucous membranes moist PULMONARY: breathing unlabored without audible wheezes CV: no tachycardia or visible JVD; normal LE peripheral pulses ABD: soft, ND; appropriately tender but no rebound/guarding : fundus firm at/below umbilicus SKIN: incision well approximated with no drainage, erythema or induration EXT: 1+ edema LEs NEURO: alert/oriented, no altered mental status PSYCH: appropriate mood and demeanor without anxiety/depression DS: Diagnosis - Discharge Diagnosis (1) 37 weeks gestation of Status: Resolved (2) Depression affecting Status: Resolved (3) Gestational hypertension Status: Acute (4) Previous section Status: Resolved Discharge Plan - Patient Discharge Instructions ACTIVITY: Continue current activity DIET: regular diet Additional Instructions: NO HEAVY LIFTING NOTHING IN THE VAGINA FOR 6 WEEKS NO DRIVING Patient Instructions: How to Care for a Surgical Wound, Depression, Hemorrhage, DI for , DI for Pre-eclampsia, DI for Surgical Site Infection, DI for Postoperative Pain, [facility] Post Discharge Instructions, Preventing the Spread of Coronavirus Discharge Instructions - Follow up Plan Follow up with: Stephanie Jules MD [Staff Physician] - 09/11/20 1:30 pm Disposition: Home, Self-Care Condition at discharge:: Stable Home Medications: Home Medications Medication Instructions Recorded Confirmed Type labetalol 200 mg tablet 200 mg PO TID tab 08/27/20 09/01/20 History Fluoxetine HCl [Prozac] 20 mg PO DAILY 09/01/20 09/01/20 History Lurasidone HCl [Latuda] 40 mg PO HS 09/01/20 09/01/20 History Ondansetron [Zofran 4mg ODT] 4 mg PO Q4HP PRN 09/01/20 09/01/20 History Ibuprofen [Motrin 400mg 800 mg PO Q6HP PRN #40 tab 09/04/20 Rx tablet] Oxycodone HCl [OxyIR 5mg tablet] 5 - 10 mg PO Q4HP PRN #24 tab 09/04/20 Rx Prescriptions/Medication Reconciliation: New Ibuprofen [Motrin 400mg tablet] 800 mg PO Q6HP PRN #40 tab PRN Reason: Mild To Moderate Pain Oxycodone HCl [OxyIR 5mg tablet] 5 - 10 mg PO Q4HP PRN #24 tab PRN Reason: Moderate To Severe Pain Continued labetalol 200 mg tablet 200 mg PO TID tab Lurasidone HCl [Latuda] 40 mg PO HS Fluoxetine HCl [Prozac] 20 mg PO DAILY Ondansetron [Zofran 4mg ODT] 4 mg PO Q4HP PRN PRN Reason: nausea and vomiting - Problem Reconciliation Problems Reviewed?: Yes
== END 2020-09-04 11:58 | disposition home or self-care (01) | DRG 788 ==
PROVIDERS: Admitting Provider Obstetrics & Gynecology; PCP Nurse Practitioner Family; Visit Provider Obstetrics & Gynecology
PROC: 10D00Z1 Extraction of Products of Conception, Low, Open Approach (ICD-10-PCS; CPT 59514; principal; 2020-09-01 07:30)
DX: O13.3 Gestational [pregnancy-induced] hypertension without significant proteinuria, third trimester (principal); Z3A.37 37 weeks gestation of pregnancy; O99.340 Other mental disorders complicating pregnancy, unspecified trimester; Z37.0 Single live birth; F32.9 Major depressive disorder, single episode, unspecified; O34.211 Maternal care for low transverse scar from previous cesarean delivery; N85.8 Other specified noninflammatory disorders of uterus
CPT/HCPCS: 59514; 36415; 59025; 80053; 80305; 81001; 84155; 85014; 85018; 85025; 86850; 87086; 94761; G0283; J2405; U0003

== ENCOUNTER → 2021-01-18 15:51 | Outpatient (CLI) | payer BC, SELFPAY ==
[2021-01-18 17:17] LABS: HCG,Quantitative < 2 mIU/ml (0-5.42)
== END ==
PROVIDERS: Visit Provider Obstetrics & Gynecology
DX: Z30.430 Encounter for insertion of intrauterine contraceptive device (principal)
CPT/HCPCS: 36415; 84702

== ENCOUNTER → 2021-04-02 09:06 | Outpatient (CLI) | payer BC, SELFPAY ==
[2021-04-02 09:11] LABS: Microscopic, Urine URINE MICROSCOPIC (MICROSCOPIC)
--- NOTE | 2021-04-02 09:26 | CT_ITS ---
PROCEDURE: CT ABDOMEN PELVIS WO/W CON CLINICAL INDICATION: ABD PAIN GENERALIZED, DIARRHEA COMPARISON: CT CT ABDOMEN PELVIS WO CON from 06/26/2019 TECHNIQUE: IV Contrast: 75ML Isovue 370 Oral Contrast 10ml Gastroview Axial images obtained with sagittal and coronal reformats. All CT scans at the facility use one or more dose reduction, viz: automated exposure control, ma/kV adjustment per patient size (including targeted exams where dose is matched to indication, i.e. head), or iterative reconstruction technique. FINDINGS: LOWER THORAX: There is calcified granuloma in the left lower lobe. ABDOMEN & PELVIS: No focal liver lesion. The gallbladder, spleen, adrenal glands, and pancreas have an unremarkable appearance. No renal or ureteral calculi. No hydronephrosis. Unremarkable appendix. There is thickening of the terminal ileum on both the unenhanced and enhanced images. No stranding of the fat at this region. The thickened segment measures approximately 5 cm in length no intestinal obstruction or free air. No evidence of diverticulitis. There is an IUD in place. The IUD that is not have the normal T shape as expected. The right limb is projected anteriorly and slightly superiorly and the left limb projects laterally and inferiorly with the tip of the left limb near the surface of the uterus. No abnormal pelvic fluid collections. There is grade 1 spondylitic spondylolisthesis of L5 on S1. There is minimal lumbar curvature convex left. IMPRESSION: 1. Moderate 5 cm long segment circumferential thickening of the terminal ileum. Crohn's disease/regional enteritis is considered. Please correlate with clinical parameters. No stranding of the fat at this area. No abscess or fistula apparent. 2. The IUD appears malpositioned as described above not having the normal T shape appearance. Dictated by: Augusto Sparrow MD 04/02/2021 12:46 Augusto Sparrow MD in [place] 04/02/2021 12:46
[2021-04-02 09:45] LABS: Basophils # 0.1 K/mm3 (0-0.2); Basophils % 0.9 % (0.1-2.0); Eosinophils # 0.1 K/mm3 (0.0-0.4); Eosinophils % 0.8 % (0.1-12.0); Hematocrit 38.2 % (37.0-47.0); Hemoglobin 12.6 g/dL (12.2-16.2); Lymphocytes # 1.9 K/mm3 (0.7-4.5); Lymphocytes % 24.6 % (10-50); Mean Corpuscular HGB Conc 33.1 g/dL (31.8-35.4); Mean Corpuscular Hemoglobin 28.7 pg (27.0-31.2); Mean Corpuscular Volume 86.8 fl (81-99); Mean Platelet Volume 7.8 fl (7.4-10.4); Monocytes # 0.5 K/mm3 (0.1-1.0); Monocytes % 6.1 % (1.7-9.3); Neutrophils # 5.2 K/mm3 (1.8-7.8); Neutrophils % 67.6 % (37.0-80.0); Platelet Count 335 K/mm3 (142-424); Red Cell Distribution Width 13.6 % (11.5-17.5); White Blood Count 7.7 K/mm3 (4.8-10.8)
[2021-04-02 10:20] VITALS: BP 127/73; PULSE 86; RESP 16; O2SAT 98
[2021-04-02 10:21] LABS: Appearance,Urine CLEAR (Clear); Bilirubin,Urine Negative (Negative); Blood, Urine Negative (Negative); Color,Urine YELLOW (Yellow); Glucose,Urine (UA) Negative (Negative); Ketones,Urine Negative (Negative); Leukocyte Esterase,Urine Negative (Negative); Nitrate,Urine Negative (Negative); Protein,Urine Negative (Negative); Specific Gravity, Urine >= 1.030 (1.005-1.030); Urobilinogen,Urine 0.2 EU/dl (0.2)
[2021-04-02 10:23] LABS: Chloride 103 mmol/L (98-107); Potassium 4.5 mmoL/L (3.5-5.1); Sodium 139 mmol/L (136-145)
[2021-04-02 10:24] LABS: HCG Qualitative, Serum Negative (Negative)
[2021-04-02 10:25] LABS: Alanine Aminotransferase 92 U/L (12-78); Amylase 33 U/L (30-110); Aspartate Amino Transferase 67 U/L (14-36); Blood Urea Nitrogen 19 mg/dl (7-17); Estimated Glomerular Filt Rate 103 ml/min (>60); GFR (African American) 124 ML/MIN (>60)
[2021-04-02 10:26] LABS: Albumin Level 4.4 g/dl (3.5-5.0); Albumin/Globulin Ratio 1.7 (1.1-1.8); Alkaline Phosphatase 180 U/L (38-126); Anion Gap 11.5 mEq/L (5-15); Bilirubin,Total 0.2 mg/dl (0.2-1.3); Calcium 9.5 mg/dl (8.4-10.2); Carbon Dioxide 29 mmol/L (22.0-30.0); Globulin 2.6 g/dL (1.3-3.2); Glucose 98 mg/dl (74-100); Lipase 47 U/L (23-300)
[2021-04-02 10:50] VITALS: BP 123/71; PULSE 84; RESP 16
== END ==
LOC: LAB 09:20 → INF 10:04
PROVIDERS: PCP Internal Medicine Adolescent Medicine; Visit Provider Internal Medicine Adolescent Medicine
DX: R10.84 Generalized abdominal pain (principal); R19.7 Diarrhea, unspecified
CPT/HCPCS: 36415; 74178; 80053; 81001; 82150; 83690; 84703; 85025; 96360; 96375; J2405; Q9967

== ENCOUNTER → 2021-05-31 16:24 | Outpatient (CLI) | payer BC, SELFPAY | PROVIDERS: Visit Provider Nurse Practitioner | DX: U07.1 COVID-19 (principal) | CPT/HCPCS: C9803; U0003; U0005 ==

== ENCOUNTER → 2021-06-14 14:35 | Outpatient (CLI) | payer BC, SELFPAY ==
[2021-06-14 17:28] LABS: Thyroid Stimulating Hormone 0.33 uIU/mL (0.465-4.68)
[2021-06-16 13:13] LABS: Progesterone 0.6 ng/mL (.)
== END ==
PROVIDERS: PCP Nurse Practitioner Family; Visit Provider Obstetrics & Gynecology
DX: R53.83 Other fatigue (principal)
CPT/HCPCS: 36415; 82670; 84144; 84443

== ENCOUNTER 2021-11-01 12:46 | Emergency (ER) | payer BC, SELFPAY ==
[2021-11-01 13:05] VITALS: BP 127/75; PULSE 106; RESP 20; TEMP 37.1; O2SAT 98; BMI 31.4
[2021-11-01 13:09] LABS: Adenovirus,PCR Not Detected (NotDetected); Bordetella Pertussis Not Detected (NotDetected); Chlamydophila Pneumoniae, PCR Not Detected (NotDetected); Coronavirus 19, PCR Not Detected (NotDetected); Coronavirus 229E Not Detected (NotDetected); Coronavirus NL63 Not Detected (NotDetected); Coronavirus OC43 Not Detected (NotDetected); Coronovirus HKU1,PCR Not Detected (NotDetected); Human Metapneumovirus Not Detected (NotDetected); Influenza A, PCR Not Detected (NotDetected); Influenza AH1, 2009 Not Detected (NotDetected); Influenza AH1, PCR Not Detected (NotDetected); Influenza AH3,PCR Not Detected (NotDetected); Influenza B, PCR Not Detected (NotDetected); Mycoplasma Pneumoniae, PCR Not Detected (NotDetected); Parainfluenza 1, PCR Not Detected (NotDetected); Parainfluenza 2, PCR Not Detected (NotDetected); Parainfluenza 3, PCR Not Detected (NotDetected); Parainfluenza 4, PCR Not Detected (NotDetected); Respiratory Syncytial Virus Not Detected (NotDetected); Rhinovirus/Enterovirus Not Detected (NotDetected)
--- NOTE | 2021-11-01 13:53 | HMH.EDUTC ---
[facility] Disposition Clinical Impression: Viral syndrome Disposition: Home, Self-Care Condition on Discharge: Good Instructions: DI for Vertigo, DI for Viral Syndrome, Mupirocin Additional Instructions: Apply topical medication to bites on your lower legs and do not pick at the areas this will make it worse *Monitor Temp, Over the counter Motrin or Tylenol as directed/as needed Tylenol every 4 hours and Motrin every 6 hours (as long as your family doctor has told you that you can take it) for fever or pain. and straight to ER if unable to lower temp less than 101.0 after medication given *Warm salt water gargles may help to soothe the throat *Throat Lozenges *Warm fluids like tea with honey may help to soothe the throat *Sleep elevated *Humidifier/Vaporizer Follow up IMMEDIATELY for new or worsening symptoms or no Noticeable improvement over the next 48-72 hours. 911 for difficulty breathing or swallowing You were tested for today for COVID19 your test result should be back in the next 24-48 hours, you may check your results on the [facility] My Health Portal Make sure to take your Vitamins Vit. C Vit D and Zinc if you can take them Prescriptions: Meclizine HCl [Antivert 12.5mg tablet] 12.5 mg PO BID PRN #10 tab PRN Reason: Vertigo Transmission Status: Pending to [facility] Mupirocin [Bactroban 2% Ointment 22gm tube] 1 applicatio TP TID 10 Days #22 gm Transmission Status: [facility] Ondansetron [Zofran 4mg ODT] 4 mg PO TIDP PRN #10 tab PRN Reason: Nausea Transmission Status: Pending to [facility] Referrals: Isabel Alex APRN [Primary Care Provider] - As needed Time of Disposition: 14:05 Medical Decision Making - Dannie Inquiry Pt receiving controlled substance: No Dannie was queried for this patient: No Vital Signs: 11/01/21 13:05 11/01/21 14:02 Temperature 98.8 F 98.8 F Temperature Source Oral Pulse Rate 106 H Pulse Rate [Left Brachial] 106 H Respiratory Rate 20 20 Blood Pressure 127/75 Blood Pressure [Left Arm] 127/75 Blood Pressure Mean [Left Arm] 92 Blood Pressure Source [Left Arm] Automatic Cuff Blood Pressure Position [Left Arm] Sitting 02 Sat by Pulse Oximetry 98 Oxygen Delivery Method Room Air - Lab Data Lab results reviewed: Yes: I reviewed the patient's lab results. Lab Results 11/01/21 13:38: [facility] Negative Orders (Tests/Meds): ORDERS Category Date Time Status Full Resp Panel w/COVID ([facility]) Routine Lab 11/01/21 13:05 Received Medical Decision Narrative: Patient states that she has taken zofran in the past without complications or reactions [facility] HPI - General Stated complaint: body aches, vomiting, dizzy Time Seen by Provider: 11/01/21 13:53 Mode of Arrival: Ambulatory Source of Information: Patient Limitations: No Limitations Description of Symptoms (Recalled from Triage Doc. by RN): PATIENT C/O NAUSEA, BODY ACHES, CHILLS AND VOMITING THAT STARTED THIS MORNING. ALSO STATES SHE HAS SOME BUG BITES THAT ARE POSSIBLY INFECTED TO BILATERAL LEGS HEENT Symptoms (Recalled from RN notes): No Resp Symptoms (Recalled from RN notes): No Skin Symptoms (Recalled from RN notes): No MS Symptoms (Recalled from RN notes): No Functional Status (Recalled from RN notes): WNL - History of Present Illness Provider Complaint: Patient states that she woke up this morning not feeling well States that she has been having N/V, body aches, chills, headache States that she was also having some dizziness at times if she moves quickly State that she has some bug bites on her lower legs that appear infected and she wasnt sure if she was sick from them or not and wanted to get them looked at too - Related Data Home Medications Medication Instructions Recorded Confirmed copper 380 square mm intrauterine 1 device INTRAUTERI ONCE each 06/14/21 09/20/21 device Previous Rx's Medication Instructions Recorded caripr
[2021-11-01 13:54] LABS: UTC Pregnancy Test, Urine Negative (Negative)
[2021-11-01 14:02] VITALS: BP 127/75; PULSE 106; RESP 20; TEMP 37.1; O2SAT 98
== END 2021-11-01 14:14 | disposition home or self-care (01) ==
PROVIDERS: Emergency Provider Nurse Practitioner; PCP Nurse Practitioner Family
DX: B34.9 Viral infection, unspecified (principal)
CPT/HCPCS: 81025; 87581; 87632; 87798; 99212; C9803; G0463; U0003; U0005

== ENCOUNTER 2023-01-02 20:51 | Emergency (ER) | payer MEDICAID, SELFPAY ==
[2023-01-02 20:52] VITALS: BP 130/84; PULSE 92; RESP 18; TEMP 36.5; O2SAT 100; BMI 29.8
[2023-01-02 21:59] LABS: Microscopic, Urine URINE MICROSCOPIC (MICROSCOPIC)
[2023-01-02 22:47] VITALS: BP 119/87; PULSE 87; RESP 16; RESP 18; TEMP 36.5; O2SAT 100
[2023-01-02 22:51] LABS: Appearance,Urine Clear (Clear); Bilirubin,Urine 1+ (Negative); Blood, Urine Negative (Negative); Color,Urine Yellow (Yellow); Glucose,Urine (UA) Negative (Negative); Ketones,Urine Negative (Negative); Nitrate,Urine Negative (Negative); Protein,Urine Trace (Negative); Specific Gravity, Urine >= 1.030 (1.005-1.030); Urobilinogen,Urine 0.2 EU/dl (0.2)
[2023-01-02 22:52] LABS: Bacteria,Urine Trace /lpf; Leukocyte Esterase,Urine Negative (Negative); Mucus,Urine 3+ /lpf; Squamous Epithelial Cell,Urine Occasional #/hpf (0-5)
== END 2023-01-02 22:48 | disposition left against medical advice (07) ==
PROVIDERS: Emergency Provider Emergency Medicine; PCP Nurse Practitioner Family
DX: Z53.21 Procedure and treatment not carried out due to patient leaving prior to being seen by health care provider (principal)
CPT/HCPCS: 81001; 99211

== ENCOUNTER 2023-02-16 11:58 | Emergency (ER) | payer MEDICAID, SELFPAY ==
[2023-02-16 12:26] VITALS: BP 141/98; PULSE 95; RESP 16; TEMP 37.1; O2SAT 98; BMI 28.0
--- NOTE | 2023-02-16 13:13 | HMH.EDGENADL ---
Discharge Plan Disposition Patient Disposition: Home, Self-Care Prescriptions Prescriptions: No Action ParaGard T 380A 380 square mm intrauterine device 1 device INTRAUTERI ONCE trazodone 50 mg tablet 50 mg PO HS PRN metronidazole 500 mg tablet 500 mg PO BID 7 Days Qty: 14 0RF trazodone 50 mg tablet 50 mg PO DAILY sertraline 50 mg tablet 50 mg PO DAILY Vraylar 3 mg capsule 3 mg PO DAILY phentermine [Adipex-P] 37.5 mg tablet 37.5 mg PO DAILY Qty: 30 0RF Rx Instructions: must administer 30 minutes before or 1-2 hours after breakfast Referrals Follow up/Referrals: Isabel Wilson APRN [Primary Care Provider] - See instructions Activity Restrictions/Add. Instructions Additional Instructions/Restrictions: Escalate MiraLAX as discussed return with any worsening symptoms. Clinical Impressions Clinical Impression: Constipation Instructions Patient Instructions: DI for Acute Abdominal Pain Discharge ED Provider: Elenita Jules General Adult HPI General Chief complaint: Abdominal Pain Stated complaint: cold, no bowel movement Time Seen by Provider: 02/16/23 13:07 Mode of Arrival: Ambulatory Source of Information: Patient Limitations: No Limitations Description of Symptoms (Recalled from ER Triage Doc. by RN): 27 yo F presents to ED with referral from PCP office. pt reports no BM in 3 weeks. for the past week pt reports bilateral leg pain, arm pain, abdominal pain. pt reports nausea. History of Present Illness HPI narrative: Patient is a 27-year-old female presents today with no bowel movement for the last 2 weeks. States that for the first week she had no significant abdominal discomfort but slowly had some abdominal discomfort no sudden onset of abdominal pain or abdominal distention or nausea vomiting associated with this. She is tried multiple mlmu-mya-syfkttv medications including milk of magnesia, qsdu-xrn-oysvfbq enemas etc. Related Data Home Medications Medication Instructions Recorded Confirmed copper 380 square mm intrauterine 1 device intrauterine ONCE 06/14/21 01/19/23 device (ParaGard T 380A) cariprazine 3 mg capsule (Vraylar) 3 mg PO DAILY 10/03/22 01/19/23 sertraline 50 mg tablet 50 mg PO DAILY 10/03/22 01/19/23 trazodone 50 mg tablet 50 mg PO DAILY 10/03/22 10/24/22 trazodone 50 mg tablet 50 mg PO HS PRN 01/19/23 01/19/23 Previous Rx's Medication Instructions Recorded phentermine 37.5 mg tablet 37.5 mg PO DAILY #30 tabs 12/20/22 (Adipex-P) metronidazole 500 mg tablet 500 mg PO BID 7 days #14 tabs 01/24/23 Allergies Allergy/AdvReac Type Severity Reaction Status Date / Time amoxicillin [AMOXICILLIN] Allergy Unknown Verified 01/19/23 16:02 [facility] Disclaimer: The information contained in this section may have been updated after the patient was seen, as this information can be updated by other users. 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
[2023-02-16 13:46] VITALS: BP 128/85; PULSE 86; RESP 16; O2SAT 100
--- NOTE | 2023-02-16 13:47 | PC.NURSE ---
1L soap jenna emena given. no concerns voiced.
--- NOTE | 2023-02-16 14:12 | HMH.ITSTN ---
spoke to clifford about ordering a preg test before doing xrays
[2023-02-16 14:14] LABS: Microscopic, Urine URINE MICROSCOPIC (MICROSCOPIC)
[2023-02-16 14:27] VITALS: BP 128/85; PULSE 89; RESP 16; TEMP 36.7
[2023-02-16 15:07] LABS: Bilirubin,Urine Negative (Negative); Blood, Urine 3+ (Negative); Glucose,Urine (UA) Negative (Negative); Ketones,Urine Negative (Negative); Leukocyte Esterase,Urine Negative (Negative); Nitrate,Urine Negative (Negative); Protein,Urine TRACE (Negative); Specific Gravity, Urine >= 1.030 (1.005-1.030); Urobilinogen,Urine 0.2 EU/dl (0.2)
[2023-02-16 15:16] LABS: Appearance,Urine Slightly Cloudy (Clear); Color,Urine Dark Yellow (Yellow)
[2023-02-16 15:19] LABS: Squamous Epithelial Cell,Urine Occasional #/hpf (0-5)
== END 2023-02-16 14:28 | disposition home or self-care (01) ==
PROVIDERS: Emergency Provider Student in an Organized Health Care Education/Training Program; PCP Nurse Practitioner Family
DX: K59.00 Constipation, unspecified (principal); F17.290 Nicotine dependence, other tobacco product, uncomplicated; F41.9 Anxiety disorder, unspecified; F32.A Depression, unspecified
CPT/HCPCS: 81001; 99283

== ENCOUNTER → 2023-02-21 15:18 | Outpatient (CLI) | payer MEDICAID, SELFPAY ==
--- NOTE | 2023-02-21 15:21 | XR_ITS ---
FINAL REPORT CLINICAL HISTORY: constipation FINDINGS: ABDOMEN SINGLE VIEW There is a nonspecific, nonobstructive bowel gas pattern. No bowel dilation is identified. There is a moderate to large amount of retained stool throughout the colon. Foreign body seen in the mid pelvis, may represent an IUD. No abnormal calcification is seen. IMPRESSION: Stool burden as above. Reviewed, Interpreted and Dictated by Thanh Woodruff III, MD Transcribed by Sharron Hess Authenticated and . [facility]
== END ==
PROVIDERS: PCP Nurse Practitioner Family; Visit Provider Obstetrics & Gynecology
DX: K59.00 Constipation, unspecified (principal)
CPT/HCPCS: 74018

== ENCOUNTER → 2023-02-23 14:59 | Outpatient (CLI) | payer MEDICAID, SELFPAY ==
--- NOTE | 2023-02-23 15:07 | XR_ITS ---
FINAL REPORT CLINICAL HISTORY: PAIN IN LOW BACK FINDINGS: LUMBAR SPINE Five views demonstrate no acute fracture. The disc spaces are well preserved. There is mild anterolisthesis of L5 on S1. IMPRESSION: Mild anterolisthesis of L5 on S1. Reviewed, Interpreted and Dictated by Thanh Woodruff III, MD Transcribed by Sharron Hess Authenticated and [facility]
== END ==
PROVIDERS: PCP Nurse Practitioner Family; Visit Provider Nurse Practitioner Family
DX: M54.50 Low back pain, unspecified (principal)
CPT/HCPCS: 72110

== ENCOUNTER 2023-05-03 08:46 | Outpatient (CLI) | payer MEDICAID, SELFPAY ==
[2023-05-03 18:15] LABS: Adenovirus,PCR Not Detected (NotDetected); Coronavirus 19, PCR Not Detected (NotDetected); Coronavirus 229E Not Detected (NotDetected); Coronavirus NL63 Not Detected (NotDetected); Coronavirus OC43 Not Detected (NotDetected); Coronovirus HKU1,PCR Not Detected (NotDetected); Human Metapneumovirus Not Detected (NotDetected); Influenza A, PCR Not Detected (NotDetected); Influenza AH1, 2009 Not Detected (NotDetected); Influenza AH1, PCR Not Detected (NotDetected); Influenza AH3,PCR Not Detected (NotDetected); Influenza B, PCR Not Detected (NotDetected); Parainfluenza 1, PCR Not Detected (NotDetected); Parainfluenza 2, PCR Not Detected (NotDetected); Parainfluenza 3, PCR Not Detected (NotDetected); Parainfluenza 4, PCR Not Detected (NotDetected); Respiratory Syncytial Virus Not Detected (NotDetected); Rhinovirus/Enterovirus Not Detected (NotDetected)
== END 2023-05-03 23:59 ==
LOC: LAB.DROPOF 05-04 08:46
PROVIDERS: PCP Nurse Practitioner Family; Visit Provider Nurse Practitioner Family
DX: R05.8 Other specified cough (principal); R51.9 Headache, unspecified; R11.2 Nausea with vomiting, unspecified; R09.81 Nasal congestion; R68.89 Other general symptoms and signs
CPT/HCPCS: 87581; 87632; 87635; 87798

== ENCOUNTER 2023-06-14 12:36 | Emergency (ER) | payer MEDICAID, SELFPAY ==
[2023-06-14 13:00] VITALS: BP 137/97; PULSE 104; RESP 19; TEMP 37.2; O2SAT 96; BMI 25.1
--- NOTE | 2023-06-14 13:21 | EXP.UTC ---
Discharge Plan Disposition Patient Disposition: Home, Self-Care Condition: Good Prescriptions Prescriptions: New oseltamivir [Tamiflu] 75 mg capsule 75 mg PO BID Qty: 10 0RF afowfizlkbngwlt-lbualmlat-WV [Bromfed DM] 2-30-10 mg/5 mL Syrup 5 ml PO Q6H PRN (Reason: Cough) Qty: 240 0RF ondansetron 4 mg Tablet,Disintegrating 4 mg PO Q8H PRN (Reason: Nausea) Qty: 12 0RF No Action ParaGard T 380A 380 square mm intrauterine device 1 device INTRAUTERI ONCE Referrals Follow up/Referrals: Isabel Wilson APRN [Primary Care Provider] - See instructions Activity Restrictions/Add. Instructions Additional Instructions/Restrictions: Drink plenty of fluids. Take tylenol or ibuprofen for pain or fever. Take the medications as directed. Follow up with your regular doctor. GO TO THE ER FOR ANY WORSENING SYMPTOMS Clinical Impressions Clinical Impression: Influenza B Stand Alone Forms Stand Alone Forms: Work/School Release Instructions Patient Instructions: Influenza, DI for Influenza -- Adult, Ondansetron, Oseltamivir Discharge ED Provider: Anil Gudino [facility] General Stated complaint: flu test sore throat congestion Time Seen by Provider: 06/14/23 13:21 History of Present Illness Provider Complaint: She states that for the past 1 day she has had scratchy sore throat, sinus congestion, headache, dry cough, body aches, and malaise. Related Data Home Medications Medication Instructions Recorded Confirmed copper 380 square mm intrauterine 1 device intrauterine ONCE 06/14/21 06/14/23 device (ParaGard T 380A) Previous Rx's Medication Instructions Recorded ykfzgwggessdkrf-rkvzjxakdxpmrnl-TX 5 ml PO Q6H PRN Cough #240 mL 06/14/23 2 mg-30 mg-10 mg/5 mL oral syrup (Bromfed DM) ondansetron 4 mg disintegrating 4 mg PO Q8H PRN Nausea #12 tabs 06/14/23 tablet oseltamivir 75 mg capsule (Tamiflu) 75 mg PO BID #10 caps 06/14/23 Allergies Allergy/AdvReac Type Severity Reaction Status Date / Time amoxicillin [AMOXICILLIN] Allergy Unknown Verified 06/14/23 13:24 [facility] Disclaimer: The information contained in this section may have been updated after the patient was seen, as this information can be updated by other users. Medical History (Updated 06/14/23 @ 14:00 by Anil Gudino APRN) Allergic rhinitis Anxiety and depression ASCUS (atypical squamous cells of undetermined significance) on gynecologic Papanicolaou smear complicating , antepartum Constipation Gynecologic exam normal High risk HPV infection IUD (intrauterine device) in place IUD check up Kidney stone Patient left without being seen Positive urine drug screen Possible exposure to STD Screening for STD (sexually transmitted disease) Surgical History History of 2 sections Family History Other Cancer FHx: mental illness Heart attack Hyperlipidemia Hypertension Social History Smoking Status: Current every day smoker tobacco type: e-cigarettes second hand exposure: Yes alcohol intake: never substance use type: marijuana current occupational status: employed Travel in the last 8 weeks: None household members: family housing: house number of children: 1 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 current occupational exposures/hazards: No caffeine: Yes ROS Obtained: Yes All systems reviewed & no additional complaints except as documented Constitutional Constitutional: Reports chills and Reports fever(s) Eyes Eyes: Denies eye discharge ENT Ears, Nose, Mouth, and Throat: Reports as per HPI Cardiovascular Cardiovascular: Denies chest pain Respiratory Respiratory: Denies chest congestion and Reports cough Gastrointestinal Gastrointestingal: Reports nausea; Denies abdominal pain, constipation, cramping, diarrhea or vomiting Musculoskeletal Musculoskeletal: Denies arthralgias Integumentary/Breasts Skin/Breast: Denies rash Neurologic Neurologic: Denies paresthesias Physical Exam General General appearance: alert and in no apparent distress Eye Eye exam: Present normal appearance, PERRL and EOMI ENT ENT exam: Present mucous membranes moist and normal external ear exam Expanded ENT Exam External ear exam: Present normal external inspection TM/Canal exam: Bilateral TM: erythema and bulging Nose exam: Absent sinus tenderness Nasal speculum exam: Bilateral: normal Mouth exam: Present normal external inspection; Absent drooling Teeth exam: Present normal inspection Throat exam: Present tonsillar erythema and tonsillomegaly Neck Neck exam: Present normal inspection, full ROM and trachea midline; Absent tenderness, lymphadenopathy or thyromegaly Chest Chest inspection: Present normal inspection and symmetric chest wall rise; Absent tenderness or rash Respiratory Respiratory exam: Present normal lung sounds bilaterally; Absent respiratory distress, wheezes, stridor or accessory muscle use Cardiovascular Cardiovascular exam: Present regular rate, normal rhythm and normal heart sounds Abdominal Exam Abdominal exam: Present soft; Absent distention, tenderness, guarding, rebound or rigidity Extremities Exam Extremities exam: Present normal inspection, full ROM and normal capillary refill; Absent tenderness or calf tenderness Back Exam Back exam: Present normal inspection and full ROM; Absent tenderness Neurological Exam Neurological exam: Present alert and oriented X3 Psychiatric Psychiatric exam: Present normal affect and normal mood Skin Skin exam: Present warm, dry, intact and normal color Lymphatic Lymphatic Findings: no adenopathy Medical Decision Making Medical Records Medical records reviewed: No I reviewed the patient's medical records. Dannie Paula Pt receiving controlled substance: No Lab Data Lab results reviewed: Yes I reviewed the patient's lab results.
[2023-06-14 13:32] LABS: UTC Influenza A Antigen Negative (Negative); UTC Influenza B Antigen Positive (Negative); UTC Strep Screen (Rapid) Negative (Negative)
[2023-06-14 14:05] VITALS: BP 137/97; PULSE 104; RESP 19; TEMP 37.2; O2SAT 96
== END 2023-06-14 14:05 | disposition home or self-care (01) ==
PROVIDERS: Emergency Provider Nurse Practitioner Family; PCP Nurse Practitioner Family
DX: J10.1 Influenza due to other identified influenza virus with other respiratory manifestations (principal); R51.9 Headache, unspecified; R05.9 Cough, unspecified; R11.0 Nausea; R07.0 Pain in throat; R09.81 Nasal congestion; F17.290 Nicotine dependence, other tobacco product, uncomplicated
CPT/HCPCS: 87804; 87880; 99212; 99214; G0463

== ENCOUNTER 2024-09-02 13:42 | Outpatient (CLI) | payer MEDICAID, SELFPAY ==
[2024-09-02 15:05] LABS: HCG,Quantitative 5445 mIU/ml (0-5.42)
[2024-09-03 12:21] LABS: Progesterone 9.4 ng/mL (.)
== END 2024-09-02 23:59 | disposition home or self-care (01) ==
LOC: LAB 13:43
PROVIDERS: PCP Nurse Practitioner Family; Visit Provider Obstetrics & Gynecology
DX: Z32.01 Encounter for pregnancy test, result positive (principal)
CPT/HCPCS: 36415; 84144; 84702

== ENCOUNTER 2024-09-06 16:10 | Outpatient (CLI) | payer MEDICAID, SELFPAY ==
[2024-09-06 17:30] LABS: HCG,Quantitative 19253 mIU/ml (0-5.42)
== END 2024-09-06 23:59 | disposition home or self-care (01) ==
LOC: LAB 16:11
PROVIDERS: PCP Nurse Practitioner Family; Visit Provider Nurse Practitioner Family
DX: N91.2 Amenorrhea, unspecified (principal)
CPT/HCPCS: 36415; 84702

== ENCOUNTER 2024-09-24 10:45 | Outpatient (CLI) | payer MEDICAID, SELFPAY ==
[2024-09-24 11:40] LABS: Basophils % 0.5 % (0.1-2.0); Eosinophils # 0.1 Kmm3 (0.0-0.4); Eosinophils % 0.8 % (0.1-12.0); Hematocrit 38.2 % (37.0-47.0); Hemoglobin 12.4 g/dL (12.2-16.2); Immature Granulocytes # 0.02 10^3uL; Immature Granulocytes % 0.3 %; Lymphocytes # 1.9 K/mm3 (0.7-4.5); Lymphocytes % 25.6 % (10-50); Mean Corpuscular HGB Conc 32.5 g/dL (31.8-35.4); Mean Corpuscular Hemoglobin 27.7 pg (27.0-31.2); Mean Corpuscular Volume 85.5 fl (81-99); Monocytes # 0.3 K/mm3 (0.1-1.0); Monocytes % 4.4 % (1.7-9.3); Neutrophils # 5.1 K/mm3 (1.8-7.8); Neutrophils % 68.4 % (37.0-80.0); Nucleated Red Blood Cells # 0 10^3/uL; Nucleated Red Blood Cells % 0 %; Platelet Count 256 K/mm3 (142-424); Red Blood Count 4.47 M/mm3 (4.20-5.40); Red Cell Distribution Width 12.7 % (11.5-17.5); Red Cell Distribution Width-SD 38.8 fL; White Blood Count 7.5 K/mm3 (4.8-10.8)
[2024-09-24 12:37] LABS: HIV Combo NEGATIVE (Negative)
[2024-09-24 12:41] LABS: HCG,Quantitative 128950 mIU/ml (0-5.42)
[2024-09-24 12:45] LABS: Hepatitis C Ab Qual. W/ RFX NEGATIVE (Negative)
[2024-09-25 05:22] LABS: Hepatitis B Surface Antigen Negative (Negative)
[2024-09-25 08:51] LABS: RPR W/RFX Titers Nonreactive (Nonreactive)
[2024-09-26 05:09] LABS: Rubella Antibodies, IgG <0.90 index (Immune >0.99)
== END 2024-09-24 23:59 | disposition home or self-care (01) ==
LOC: LAB 10:46
PROVIDERS: PCP Nurse Practitioner Family; Visit Provider Obstetrics & Gynecology
DX: Z34.01 Encounter for supervision of normal first pregnancy, first trimester (principal); Z3A.00 Weeks of gestation of pregnancy not specified
CPT/HCPCS: 36415; 84144; 84702; 85025; 86592; 86762; 86803; 86850; 87340; 87389

== ENCOUNTER 2024-12-12 12:38 | Outpatient (CLI) | payer MEDICAID, SELFPAY ==
--- OUTSIDE RECORDS SUMMARY | 2024-12-12 12:40 | XMS_ITS | Clinical Summary ---
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 Name Role Phone Unavailable Primary Care Provider Unavailabl e Allergies No known active allergies Medications ondansetron (ZOFRAN-ODT) 4 MG disintegrating tablet Take 1 tablet by mouth 3 times daily as needed for Nausea or Vomiting 21 tablet Active Social History Tobacco Use Types Packs/Day Years Used Date Smoking Tobacco: Never Assessed Comments Unknown Sex and Gender Information Value Date Recorded Sex Assigned at Not on file Legal Sex Female 6:06 PM EDT Gender Identity Not on file Sexual Orientation Not on file Last Filed Vital Signs Vital Sign Reading Time Taken Comments Blood Pressure 143/102 02/11/2023 7:56 PM EDT Pulse 90 02/11/2023 7:56 PM EDT Temperature 36.9 C (98.4 F) 02/11/2023 7:56 PM EDT Respiratory Rate 16 02/11/2023 6:21 PM EDT Oxygen Saturation 100% 02/11/2023 7:56 PM EDT Inhaled Oxygen Concentration - - Weight 77.1 kg (170 lb) 02/11/2023 6:21 PM EDT Height 162.6 cm (5' 4 ) 02/11/2023 6:21 PM EDT Body Mass Index 29.18 02/11/2023 6:21 PM EDT Plan of Treatment Health Maintenance Due Date Last Done Comments DTaP/Tdap/Td vaccine (1 - Tdap) 10/10/2015 COVID-19 Vaccine (2023-2 5 season) 2023 Flu vaccine (#1) 11/29/2024 Polio vaccine Aged Out No longer elig ible based on patient's age to complete this topic Insurance [facility]
--- NOTE | 2024-12-12 13:00 | US_ITS ---
PROCEDURE: US OB /MATERNAL DETAIL CLINICAL INDICATION: 20 wk anatomy scan COMPARISON: No exams were available for comparison FINDINGS: Transabdominal sonographic images of the pelvis were obtained. From her established due date she is 19 weeks 4 days. Single viable intrauterine gestation. Breech position. Placenta: Posteriorplacenta grade 1. There is an average amount of fluid. The cervix appears satisfactory. Closed and measuring 4.25 cm in length. Complete survey performed and was unremarkable on the submitted images as in PACS. No discrete anomalies identified on survey imaging by technologist. Active fetus. Three-vessel cord with satisfactory umbilical cord insertion. 4- chamber heart noted. Situs, aortic arch, LVOT, RVOT, three-vessel view appear normal. Survey of brain & ventricles Unremarkable. Cerebellum, thalamus, choroid plexus, cisterna magna appear normal. Face and neck survey unremarkable. Profile, nasion, lips and nose appeared normal. Diaphragm and chest views unremarkable. Abdomen: Both kidneys noted and unremarkable. Stomach and bladder noted and satisfactory. Spine: Survey of the spine satisfactory with no anomalies identified nor imaged. Cervical, thoracic, lower spine appear normal. Both arms and legs noted. Amniotic Fluid: Adequate. MVP 3.08 cm Measurements: Average ultrasound age 19weeks 5days. Estimated due date by ultrasound age 0105/03/2025. Estimated weight 295g BPD = 19weeks 5days HC = 19weeks 4days AC = 19weeks 4days FL = 19weeks 4days Growth Percentile= 39 Heart Rate = 142bpm Cerebellum = 20weeks Humerus = 19weeks 6days HC/AC is 1.19 FL/BPD is 0.68 FL/AC is 0.22 IMPRESSION: 1. Viable fetus in the breech presentation with a posterior placenta grade 1. 2. The fluid is within normal limits with an MVP 3.08 cm. 3. Anatomical scan appears normal. 4. biometry is consistent with the dates. Dictated by: Srinivasa Mcleod MD 12/12/2024 19:07 Srinivasa Mcleod MD in [place] 12/12/2024 19:07
== END 2024-12-12 23:59 | disposition home or self-care (01) ==
LOC: RAD 12:39
PROVIDERS: PCP Nurse Practitioner Family; Visit Provider Obstetrics & Gynecology
DX: O32.1XX0 Maternal care for breech presentation, not applicable or unspecified (principal); O10.912 Unspecified pre-existing hypertension complicating pregnancy, second trimester; O99.212 Obesity complicating pregnancy, second trimester; E66.9 Obesity, unspecified; Z3A.19 19 weeks gestation of pregnancy
CPT/HCPCS: 76811

== ENCOUNTER 2024-12-17 12:13 | Outpatient (CLI) | payer MEDICAID, SELFPAY ==
[2024-12-17 12:28] LABS: Microscopic, Urine URINE MICROSCOPIC (MICROSCOPIC)
[2024-12-17 12:31] VITALS: BP 133/89; PULSE 110; RESP 18; TEMP 36.9; O2SAT 99; BMI 32.5
[2024-12-17 13:11] LABS: Bilirubin,Urine Negative (Negative); Color,Urine YELLOW (Yellow); Glucose,Urine (UA) Negative (Negative); Ketones,Urine Negative (Negative); Leukocyte Esterase,Urine Negative (Negative); PH,Urine 6.5 (5.0-8.5); Protein,Urine Negative (Negative); Specific Gravity, Urine 1.010 (1.005-1.030); Urobilinogen,Urine 0.2 EU/dl (0.2)
[2024-12-17 13:38] LABS: Bacteria,Urine 4+ /lpf
[2024-12-17 13:54] LABS: Hematocrit 34.0 % (37.0-47.0); Hemoglobin 11.2 g/dL (12.2-16.2); Immature Granulocytes % 0.5 %; Mean Corpuscular HGB Conc 32.9 g/dL (31.8-35.4); Mean Corpuscular Hemoglobin 28.6 pg (27.0-31.2); Mean Corpuscular Volume 87.0 fl (81-99); Nucleated Red Blood Cells % 0 %; Platelet Count 218 K/mm3 (142-424); Red Blood Count 3.91 M/mm3 (4.20-5.40); Red Cell Distribution Width-SD 40.3 fL; White Blood Count 8.6 K/mm3 (4.8-10.8)
[2024-12-17 14:34] LABS: Chloride 109 mmol/L (98-107)
[2024-12-17 14:35] LABS: Albumin Level 3.7 g/dl (3.5-5.0); Potassium 4.0 mmoL/L (3.5-5.1); Sodium 137 mmol/L (136-145)
[2024-12-17 14:37] LABS: Blood Urea Nitrogen 7 mg/dl (7-17); Creatinine Clearance Estimated 267 mL/min (50-200); Creatinine,Serum 0.40 mg/dl (0.52-1.04); Estimated Glomerular Filt Rate 190 ml/min (>60); GFR (African American) 230 ML/MIN (>60)
[2024-12-17 14:38] LABS: Alanine Aminotransferase 12 U/L (12-78); Albumin/Globulin Ratio 1.3 (1.1-1.8); Alkaline Phosphatase 132 U/L (38-126); Anion Gap 10.0 mEq/L (5-15); Aspartate Amino Transferase 20 U/L (14-36); Bilirubin,Total 0.2 mg/dl (0.2-1.3); Calcium 8.8 mg/dl (8.4-10.2); Carbon Dioxide 22 mmol/L (22.0-30.0); Globulin 2.9 g/dL (1.3-3.2); Glucose 74 mg/dl (74-100); Total Protein,Serum 6.6 g/dl (6.3-8.2)
[2024-12-17 15:22] LABS: Uric Acid 2.7 mg/dl (2.5-6.2)
== END 2024-12-17 14:10 | disposition home or self-care (01) ==
LOC: OBOUT 12:15 → OB 12:16
PROVIDERS: PCP Nurse Practitioner Family; Visit Provider Obstetrics & Gynecology
DX: O10.912 Unspecified pre-existing hypertension complicating pregnancy, second trimester (principal); O99.212 Obesity complicating pregnancy, second trimester; E66.9 Obesity, unspecified; Z3A.16 16 weeks gestation of pregnancy
CPT/HCPCS: 36415; 80053; 81001; 82570; 84156; 84550; 85025; 87086

== ENCOUNTER 2024-12-18 13:04 | Outpatient (CLI) | payer MEDICAID, SELFPAY ==
[2024-12-18 14:34] LABS: Creatinine,Serum 0.40 mg/dl (0.52-1.04)
[2024-12-18 14:50] LABS: Collection Time,Urine 24 hours; Total Volume,Urine 400 mL (600-1600)
[2024-12-18 14:53] LABS: Patient Height,Urine 62 inches; Patient Weight,Urine 184 lbs
[2024-12-18 20:28] LABS: Creatinine 24 Hour,Urine 572 mg/24hr (630-2500); Creatinine Clearance Urine 93.4 mL/min (25-115); Total Protein 24 Hour,Urine 20 mg/24 hr (40-90)
== END 2024-12-18 23:59 | disposition home or self-care (01) ==
PROVIDERS: PCP Nurse Practitioner Family; Visit Provider Obstetrics & Gynecology
DX: O10.919 Unspecified pre-existing hypertension complicating pregnancy, unspecified trimester (principal); Z3A.00 Weeks of gestation of pregnancy not specified
CPT/HCPCS: 36415; 82575; 84155

== ENCOUNTER 2025-01-15 15:29 | Outpatient (CLI) | payer MEDICAID, SELFPAY ==
[2025-01-15 16:15] LABS: Hematocrit 33.4 % (37.0-47.0); Hemoglobin 11.2 g/dL (12.2-16.2); Immature Granulocytes % 0.9 %; Mean Corpuscular HGB Conc 33.5 g/dL (31.8-35.4); Mean Corpuscular Hemoglobin 29.6 pg (27.0-31.2); Mean Corpuscular Volume 88.4 fl (81-99); Nucleated Red Blood Cells % 0 %; Platelet Count 246 K/mm3 (142-424); Red Blood Count 3.78 M/mm3 (4.20-5.40); Red Cell Distribution Width-SD 42.1 fL; White Blood Count 10.4 K/mm3 (4.8-10.8)
[2025-01-15 16:51] LABS: Alanine Aminotransferase 11 U/L (12-78); Albumin Level 3.5 g/dl (3.5-5.0); Albumin/Globulin Ratio 1.3 (1.1-1.8); Alkaline Phosphatase 114 U/L (38-126); Anion Gap 10.8 mEq/L (5-15); Aspartate Amino Transferase 18 U/L (14-36); Blood Urea Nitrogen 8 mg/dl (7-17); Calcium 8.8 mg/dl (8.4-10.2); Carbon Dioxide 24 mmol/L (22.0-30.0); Chloride 105 mmol/L (98-107); Creatinine,Serum 0.40 mg/dl (0.52-1.04); Estimated Glomerular Filt Rate 190 ml/min (>60); GFR (African American) 230 ML/MIN (>60); Globulin 2.7 g/dL (1.3-3.2); Glucose 75 mg/dl (74-100); Potassium 3.8 mmoL/L (3.5-5.1); Sodium 136 mmol/L (136-145); Total Protein,Serum 6.2 g/dl (6.3-8.2); Uric Acid 2.1 mg/dl (2.5-6.2)
[2025-01-15 16:52] LABS: RBC Morphology Normal
[2025-01-15 16:53] LABS: Total Cells Counted 100
[2025-01-15 16:56] LABS: Bilirubin,Total 0.1 mg/dl (0.2-1.3)
[2025-01-16 11:51] LABS: RPR W/RFX Titers Nonreactive (Nonreactive)
== END 2025-01-15 23:59 | disposition home or self-care (01) ==
LOC: LAB 15:30
PROVIDERS: PCP Nurse Practitioner Family; Visit Provider Obstetrics & Gynecology
DX: O10.919 Unspecified pre-existing hypertension complicating pregnancy, unspecified trimester (principal); O99.210 Obesity complicating pregnancy, unspecified trimester; E66.9 Obesity, unspecified; Z3A.00 Weeks of gestation of pregnancy not specified
CPT/HCPCS: 36415; 80053; 83615; 84550; 85007; 85014; 85018; 85025; 85048; 85049; 86592

== ENCOUNTER 2025-02-10 08:01 | Outpatient (CLI) | payer MEDICAID, SELFPAY ==
--- OUTSIDE RECORDS SUMMARY | 2025-02-10 08:04 | XMS_ITS | Data Portability ---
Author Organization [facility] [place] [address] [place] [address] Assessment No assessment recorded. Plan of Treatment Reminders Order Date Submit Date Provider Last Modified By Organization Details Last Modified Time Details Appointments None recorded. Lab cancer related large scale gene targeted mutation analysis, blood or tissue [email or web address] [facility], [address] [place] [address], [address], 4 09:59:54 pap, IG + reflex HPV 2023 024 MONTROSE [facility]), [address] [place], [address], 4 15:08:22 Referral None recorded. Procedures None recorded. Surgeries None recorded. Imaging None recorded. Medication Orders Vitamin 27 mg iron-0.8 mg tablet 2023 024 [facility], [address], [place], [id number], 4 15:32:14 Patient TargetsNo targets recorded. Patient Instructions Encounter Date Encounter Id Patient Instructions Last Modified By Organization Details Last Modified Time 03/01/2024 [id number] learning about control [email or web address] Not available 03/01/2024 15:23:57 surgical trays* [email or web address] Not availab le 04/10/2024 07:21:29 Reason for Referral None Reported. Results Created Date Observation Date Name Description Value Unit Range Abnormal Flag Note LastModifiedBy Organization Detail LastModifiedTime 02/21/2002/22/2024 IGP,A PTIMA HPV,A GE GDLN age gdln acog testing Not Available [facility] ([facility]) [address] [place], [address], 02/27/2024 15:08:22 02/21/2002/27/2024 IGP,A PTIMA HPV,A GE GDLN diagnosis: Abelardo perez NEGAT KUMAR FOR INTRA EPITH ELIAL LESIO N OR JENNIFER NI . THIS SPECI MEN WAS RESCR EENED PART OF OUR QUALI TY CONTR OL PROGR AM. Not Available [facility] ([facility]) [address] [place], [address], 02/27/2024 15:08:22 02/21/2002/27/2024 IGP,A PTIMA HPV,A GE GDLN specimen adequacy: Abelardo perez Satis facto ry for evalu ation . Endoc ervic al and/o r squam ous metap lasti c cells (endo cervi steven compo nent) are prese nt. Not Available [facility] ([facility]) [address] [place], [address], 02/27/2024 15:08:22 02/21/2002/27/2024 IGP,A PTIMA HPV,A GE GDLN clinician provided ICD10: Abelardo perez Z12.4 Z80.4 1 Not Available [facility] ([facility]) [address] [place], [address], 02/27/2024 15:08:22 02/21/2002/27/2024 IGP,A PTIMA HPV,A GE GDLN performed by: Lashawn Grider (ASCP ) Not Available [facility] ([facility]) [address] [place], [address], 02/27/2024 15:08:22 02/21/2002/27/2024 IGP,A PTIMA HPV,A GE GDLN QC reviewed by: Abelardo Fierro r, Super visor y Cytot echno marc t (ASCP ) Not Available [facility] ([facility]) [address] [place], [address], 02/27/2024 15:08:22 02/21/20 24 02/27/2024 IGP,A PTIMA HPV,A GE GDLN . . Not Available [facility] ([facility]) [address] [facility], [place], [address], 02/27/2024 15:08:22 02/21/2002/27/2024 IGP,A PTIMA HPV,A GE GDLN note: Abelardo perez The Pap smear is a scree adamaris test desig makeda to aid in the detec tion of marialuisa ligna nt and malig nant condi tions of the uteri ne cervi x. It is not a diagn ostic proce dure and shoul d not be used as the sole means of detec ting cervi steven cance r. Both false -posi tive and false -nega tive repor ts do occur . Not Available [facility] ([facility]) [address] [facility], [place], [address], 02/27/2024 15:08:22 02/21/2002/27/2024 IGP,A PTIMA HPV,A GE GDLN test methodology: Abelardo perez This liqui d based ThinP rep(R ) pap test was scree makeda with the use of an image guide d syste m. Not Available [facility] ([facility]) [address] [place], [address], 02/27/2024 15:08:22 02/21/20 24 02/27/2024 IGP,A PTIMA HPV,A GE GDLN . Abelardo perez The HPV DNA refle x crite rajesh were not met with this speci men resul t there fore, no HPV testi ng was perfo rmed. Not Available [facility] ([facility]) [address] [facility], [place], [address], 02/27/2024 15:08:22 02/21/20 24 04/19/2024 VISTA SEQ HERED . CANCE R PANEL preauthoriza tion Commen t Prior autho rizat ion revie w compl ete Not Available [facility] ([facility]) [address] [facility], [place], [address], 04/25/2024 14:07:33 02/21/20 24 04/25/2024 VISTA SEQ HERED . CANCE R PANEL specimen type Whole Blood Not Available [facility] ([facility]) [address] [facility], [place], [address], 04/25/2024 14:07:33 02/21/20 24 04/25/2024 VISTA SEQ HERED . CANCE R PANEL result summary Negati ve No clini jaguar signi fican t seque nce or copy numbe r varia nts were detec cristiane. No patho genic or varia nts of [facility] clini steven signi fican ce were detec cristiane by full gene seque ncing or delet ion/d uplic ation enrique sis for any of the genes teste d in this panel . Not Available [facility] ([facility]) [address] [facility], [place], [address], 04/25/2024 14:07:33 02/21/20 24 04/25/2024 VISTA SEQ HERED . CANCE R PANEL result and interpretati on TRENCH DIGGER HELPER Not Available [facility] ([facility]) [address] [facility], [place], [address], 04/25/2024 14:07:33 02/21/20 24 04/25/2024 VISTA SEQ HERED . CANCE R PANEL recommendati ons Commen t Ken ic couns dilcia is recom cookie d to discu ss the clini steven impli catio ns of this resul t. Ken ic couns spencer are avail able for healt h care provi ders to discu ss this resul t furth er at [phone] SHANNAN. To refer your patie nt for ken ic couns dilcia hancock Inte[employer] rated Ken ics, mary jones call the sched uling line at [phone]. NCCN guide lines recom mend consi derat ion of tumor seque ncing in indiv idual s with tumor s showi ng MMR defic iency and no germl ine patho genic varia nt (Gene tic/F amili al High- Risk Asses sment : Color ectal , Versi on ). [place] [address] 2 MLH1/ MSH2/ MSH6/ PMS2/ EPCAM Somat ic Tumor Misma tch Repai r Seque ncing and Delet ion/D uplic ation Test is avail able to perfo rm this enrique sis. For more infor mary robles conta ct [phone] SHANNAN to speak with our labor atory ken ic coord inato rs. LIST OF ALL GENES IN PANEL APC MSH2 TP53 BRCA1 CHEK2 CDKN2 A PRKAR 1A DASHAWN MSH6 CDH1 BRCA2 PALB2 RAD51 C RAD51 D NBN PMS2 MLH1 BARD1 SMAD4 BMPR1 A FAM17 5A CDK4 PTEN STK11 BRIP1 EPCAM MUTYH (bial lelic ) Not Available [facility] ([facility]) [address] [facility], [place], [address], 04/25/2024 14:07:33 02/21/20 24 04/25/2024 VISTA SEQ HERED . CANCE R PANEL additional information Commen t Speci men Type: Whole Blood Indic ation for Testi ng: The indic ation for testi ng for this patie nt is a repor cristiane perso nal and/o r famil y histo ry of ovari an cance r. Varia nt Class ifica tion: Varia nt class ifica tion is a weigh cristiane asses sment that incor porat es but is not limit ed to the follo wing compo nents : preva lence of a varia nt in the unaff ected (gene ral) popul ation , evide nce of co-se grega tion in affec cristiane indiv idual s, revie w of locus speci fic datab ases and obser uriel/r eport ed co-oc curre nce with other delet aminah s varia nts withi n the gene, publi shed funct ional evide nce linki ng a varia nt to pheno types , and predi cted funct ional impac t as deter mined using in-si barrera enrique ses. Varia nts class ified withi n each gene are repor cristiane in accor dance to the ACMG stand ards and guide lines . Evide nce affec ting a varia nt class ifica tion that alter s its clini steven signi fican ce will be repor cristiane via an amend ed repor t. Patho genic varia nts negat ively affec t belinda l gene funct ion, are assoc iated with disea se, and shoul d be used [facility] clin[facility] . Likel y patho genic varia nts are stron gly sugge stive of belinda l gene funct ion being negat ively affec cristiane, and when combi makeda with other evide nce of cance r, may be used in clini [facility]even decis [facility] . Varia nts of uncer tain signi fican ce (VUS) have unkno wn effec ts on gene funct ion, have not been previ ously repor cristiane or have been repor cristiane with inade quate or confl ictin g evide nce regar ding patho genic ity, clini steven relev ance, or cance r risk. A VUS shoul d not be used in clini steven decis [facility] but addit ional monit oring may be consi dered . Likel y benig n varia nts are stron gly sugge stive of havin g no effec t on gene funct ion and are unlik rosie to have an incre ased risk for cance r. Benig n varia nts have suffi cient evide nce to be consi dered of no clini steven signi fican ce. Likel y benig n, benig n and synon ymous varia nts are not repor cristiane, but are avail able upon reque st. Not Available [facility] ([facility]) [address], [place], [address], 04/25/2024 14:07:33 02/21/20 24 04/25/2024 VISTA SEQ HERED . CANCE R PANEL methodology and limitations Commen t The codin g regio n and flank ing splic e sites are enrique zed by NGS (+/-1 0bp) and delet ion/d uplic ation enrique sis. Exon- level delet ions/ dupli catio ns are asses sed by aCGH or by MLPA. Enrique sis is limit ed to delet ion/d uplic ation testi ng for EPCAM . Enrique sis is expan ded for BRCA1 /2 flank ing splic e sites (+/-2 0bp; -25bp for BRCA1 exon 23) and to inclu de promo ter delet ions for APC (1B and 1A) and promo ter seque nce varia nts for PTEN (c.-1 300 to c.-75 0). Seque ncing canno t detec t varia nts in regio ns not cover ed by this enrique sis, inclu ding nonco ding or deep intro behzad varia nts and may not relia papo detec t de oliveira es in repet itive eleme nts, such as micro satel lite repea ts. Seque ncing may not detec t mosai c varia nts, inver sions , or other genom ic rearr angem ents such as trans posab le eleme nt inser tions . Seque nce enrique sis may also be affec cristiane by allel e drop- out due to the prese nce of a rare varia nt under a prime r site or homop olyme katya regio ns. The metho d does not allow any concl usion as to wheth er two heter ozygo us varia nts are prese nt on the same or on diffe rent chrom osome copie s. Copy numbe r varia tions are asses sed by micro array or multi plex- ligat ion-p robe ampli ficat ion assay (MLPA ) to detec t gross delet ions and dupli catio ns. Copy numbe r enrique ses are desig makeda to detec t singl e exon, multi -exon , and full gene delet ions or dupli catio ns. These enrique ses may not detec t certa in genom ic rearr angem ents, such as trans locat ions (salvador nced or unbal anced ), inver sions , or some parti al exon rearr angem ents. This assay canno t deter mine exact break point s of delet ions or dupli catio ns detec cristiane. The prese nce of pseud ogene s can inter fere with the abili ty to detec t varia nts in certa in genes . For examp le, delet ion/d uplic ation enrique sis of PMS2 exons 11-15 , among other s, is compl icate d by the highl y homol ogous PMS2C L pseud ogene . Delet ions/ dupli catio ns in PMS2C L have not been assoc iated with Thorne syndr ome, howev er this assay may not be able to deter mine if a delet ion/d uplic ation affec ts PMS2 or PMS2C L. Each gene seque nce is inter prete d indep enden tly of all other gene seque nces; howev er, varia nts in diffe rent genes may inter act to cause or modif y a typic ally monog enic disea se pheno type. In addit ion, the prese nce of an inher ited cance r syndr ome due to a diffe rent ken ic cause canno t be ruled out. Any inter preta tion given shoul d be clini jaguar corre lated with avail able infor matio n about prese ntati on and the patie nt's relev ant famil y histo ry. This test is not inten ded to detec t somat ic varia nts. Bone marro w trans plant ation , recen t blood trans fusio n and activ e hemat ologi steven malig drew es may affec t the outco me of these resul ts. This test was devel oped, and its perfo rmanc e karen cteri stics deter mined , by [facility]. It has not been clear ed or appro uriel by the [place] Food and Drug Admin istra tion (FDA) . Not Available [facility] ([facility]) [address] [facility], [place], [address], 04/25/2024 14:07:33 02/21/20 24 04/25/2024 VISTA SEQ HERED . CANCE R PANEL references Commen t 1. Natio nal Compr ehens kumar Cance r Net[employer] rk. Clini steven pract ice guide lines , avail able at: www.n ccn.o rg/pr ofess ional s/phy sicia n_gls /defa ult.a spx#s ite 2. Kassie H. et al. Worki ng [employer] [facility] Ken [facility] Labor atory Quali ty Assur ance Commi ttee. AC clini steven labor atory stand ards for next- gener ation seque ncing . Ken Med. 2013 Dec;1 5(9): 733-4 7. 3. Gba Hernandez. et al. Frequ ency of mutat ions in indiv idual s with breas t cance r refer red for BRCA1 and BRCA2 testi ng using next- gener ation seque ncing with a 25-ge ne panel . Trinidad r. 2015 May 121(1 ):25- 33. 4. Monty Burgos. et al. Utili zatio n of multi gene panel s in hered itary cance r predi sposi tion testi ng. Ken Med. 2014 Mar;1 6(11) :830- 7. Not Available [facility] ([facility]) [address] [facility], [place], [address], 04/25/2024 14:07:33 02/21/20 24 04/25/2024 VISTA SEQ HERED . CANCE R PANEL director review Commen t Relea sed By: CARLA ORELLANA, PhD, Direc tor PERFO RMING LABOR ATORI ES TG [facility] [address] [facility] , [place] [address] , Labor atory Direc tor: Francisco Juárez M.D., Ph.D. Techn ical compo nent, enrique sis, perfo rmed at [address] [place], [address] , Francisco Juárez MD, PhD. Dorinda guy compo nent, perfo rmed at Labor atory [facility] [employer] [facility], [address], [place], [address] , Labor atory Direc tor Carla orellana, PhD, FACMG . For marvini wade, the physi christal banuelos conta ct the lab at . Not Available [facility] ([facility]) [address] [place], [address], 04/25/2024 14:07:33 02/21/20 24 04/25/2024 VISTA SEQ HERED . CANCE R PANEL pdf . Not Available [facility] ([facility]) [address] [place], [address], 04/25/2024 14:07:33 Result Notes None recorded. Procedures Surgical History Date Name Laterality Status Provider Name and Address Organization Details Recorded Time 4 Control Implant Removal completed Bev Dorman MD [address] [place] [address], [phone], [employer] 03/01/2024 15:23:43 4 IUD Insertion completed Josselyn Vazquez APRN [address] [place] [address], [phone], [employer] 02/21/2024 10:43:32 4 Control Implant Insertion completed Josselyn Vazquez APRN [address] [place] [address], [phone], [employer] 02/21/2024 10:43:41 delivery completed Daphnie Hanson [employer] 02/21/2024 09:48:32 procedure on labia completed Daphnie Hanson [employer] 02/21/2024 09:49:07 Imaging Results None recorded. Procedure Notes None recorded. Medical Equipment None Reported. Allergies Allergen ID Allergen Name Allergen Category Reaction Reaction Severity Criticality Documentation Date Start Date Code Code System Note Provider Name and Address Organization Details Recorded Time 85846 amoxicill in medicatio n Not available Not available Not available 02/21/2024 723 RxNorm [facility] 09:45:59 Medications Name Sig Start Date Stop Date Status Note LastModified by Organization Details LastModified Time promethazine -DM 6.25 mg-15 mg/5 mL oral syrup TAKE 5 ML BY MOUTH EVERY 6 HOURS NEEDED FOR COUGH FOR 10 DAYS 02/20 completed Not Available Not Available Not Available trazodone 50 mg tablet TAKE 1/2 TO 1 (ONE-ELIAS F TO ONE) TABLET BY MOUTH AT BEDTIME 02/20 completed Not Available Not Available Not Available metronidazol e 500 mg tablet 02/20 completed Not Available Not Available Not Available benzonatate 100 mg capsule 02/20 completed Not Available Not Available Not Available oseltamivir 75 mg capsule 02/20 completed Not Available Not Available Not Available nitrofuranto in macrocrystal 100 mg capsule 02/20 completed Not Available Not Available Not Available bisacodyl 5 mg tablet,delay ed release 02/20 completed Not Available Not Available Not Available polyethylene glycol 3350 17 gram/dose oral powder 02/20 completed Not Available Not Available Not Available brompheniram ine-pseudoep hedrine-DM 2 mg-30 mg-10 mg/5 mL oral syrup 02/20 completed Not Available Not Available Not Available ondansetron 4 mg disintegrati ng tablet 02/20 completed Not Available Not Available Not Available cefdinir 300 mg capsule TAKE 1 CAPSULE BY MOUTH EVERY 12 HOURS FOR 7 DAYS 02/20 completed Not Available Not Available Not Available Ventolin HFA 90 mcg/actuatio n aerosol inhaler 02/20 completed Not Available Not Available Not Available Vitamin 27 mg iron-0.8 mg tablet Take 1 tablet every day by oral route for 90 days. active Not Available Not Available No t Available Senna Plus 8.6 mg-50 mg tablet 02/20 completed Not Available Not Available Not Available bupropion HCl XL 150 mg 24 hr tablet, extended release TAKE 1 TABLET BY MOUTH EVERY 24 HOURS 02/20 completed Not Available Not Available Not Available 28 mg iron-800 mcg tablet 02/20 completed Not Available Not Available Not Available Vitals Date Recorded Body height Body mass index (BMI) Body weight Heart rate Oxygen saturation Oxygen saturation in Arterial blood by Pulse oximetry Systolic And Diastolic Provider Name and Address Organization Details Last Updated DateTime 157.48 cm 33 kg/m2 45820.0 6 g 91 /min 100 % 100 % 118/84 mm[Hg] Daphnie Hanson [employer]. 09:45:31 Date Recorded Body height Body mass index (BMI) Body weight Heart rate Oxygen saturation Oxygen saturation in Arterial blood by Pulse oximetry Systolic And Diastolic Provider Name and Address Organization Details Last Updated DateTime 157.48 cm 32.9 kg/m2 02224.6 3 g 85 /min 100 % 100 % 131/89 mm[Hg] Martin Ocampo [employer]. 14:58:37 Social History Question Answer Notes LastModified by Organizat ion Details LastModified Time Tobacco Smoking Status Never Smoker Daphnie reyes [employer]. 02/21/2024 09:48:03 If You Are , What Was Your Level Of Alcohol Consumption Prior To ? None [email or web address] Information not available 02/21/2024 What Is Your Level Of Caffeine Consumption? Moderate [email or web address] Information not available 02/21/2024 In The 14 Days Before Symptom Onset, Have You Had Close Contact With A Laboratory-confir med COVID-19 While That Case Was Ill? No Information not available 03/01/2024 Have You Been To An Area Known To Be High Risk For COVID-19? No Information not available 03/01/2024 Which Illicit Or Recreational Drugs Have You Used? [place] Information not available 02/21/2024 What Was The Date Of Your Most Recent Tobacco Screening? 03/01/2024 Information not available 03/01/2024 Has Tobacco Cessation Counseling Been Provided? Yes Information not available 02/21/2024 On What Date Was Tobacco Cessation Counseling Provided? 03/01/2024 Information not available 03/01/2024 Have You Recently Traveled Abroad? No Information not available 03/01/2024 Have You Used IV Drugs? No [email or web address] Information not available 02/21/2024 Sex: Female Functional Status Question Answer Note LastModified by Organizat ion Details LastModified Time Do you use any illicit or recreational drugs? Yes [email or web address] Information not available 02/21/2024 Do you or have you ever used any other forms of tobacco or nicotine? Yes [email or web address] Information not available 02/21/2024 What is your level of alcohol consumption? None Information not available 02/21/2024 Do you or have you ever used smokeless tobacco? Never used smokeless tobacco [email or web address] Information not available 02/21/2024 Do you or have you ever used e-cigarettes or vape? Current user of electronic cigarettes Information not available 02/21/2024 Mental Status None recorded. Family History Nothing Reported. Medical History Condition Response Allergies (Food, seasonal, environmental ) N Other N Hyperthyroidism N Blood Transfusion N Drug/Latex Allergies/Reactions N Breast Cancer N Emergency room visit since last appointm ent. N Dermatologic Disorders N Lung Disease N Hypothyroidism N Defects or Inherited Disease N Breast Problem N Gestational Diabetes N Hematologic disorders N Anesthesia Complications N History of STI N Deep Vein Thrombosis N Polycystic ovary syndrome N Anxiety Disorder N Autoimmune disease N Vision or Eye Problems N Arthritis N Infertility N Polyps N Mental Disorder N Congenital Anomalies N History of abnormal pap N Acid Reflux (GERD) N Cancer N Stroke N Neurologic/Epilepsy N Endometriosis N High Cholesterol N Psychiatric/Mental Health Condition N Organ Transplant N Headaches N Dialysis N Schizophrenia N Fibromyalgia N Kidney Disease N Heart Problems N Hospitalizations N Thyroid Problems N Kidney or Bladder Problems N GI Problems N Acne N Eating Disorder N Anemia N Art (IVF or FET) N Mental Illness N Diabetes N Ovarian Cancer N Pulmonary (TB, Asthma) N Hepatitis/Liver Disease N Eczema N Abuse/Domestic Violence N Asthma N Trauma/Violence N Substance Abuse N Depression/ depression N Heart Disease N Pre-Eclampsia N Hypertension N Osteoporosis N Thrombophilias N Gynecological History Statement/Question Response Abnormal Pap Y Flow Moderate On BCP's at Conception? N STIs/STDs Y HPV Vaccine N Duration of Flow (days) 3 Age at Menarche 11 Age at First Child 22 Sexually Active? Y Menses Monthly Y Date of Last Pap Smear Sexual Problems? N LMP Desired Control Method IUD Obstetrics History GPAL:G 3 P 2 0 1 2 Type Value Full Term 2 Spontaneous 1 Living 2 Total 3 Immunizations Vaccine Type Date Status Note Provider Nam e and Address Organization Details Recorded Time Influenza, split virus, quadrivalent, preservative 9 completed Daphnie Valentin null, [employer] 02/21/2024 09:43:59 Hib, unspecified formulation 8 completed Daphnie Valentin null, [employer] 02/21/2024 09:43:59 Hib, unspecified formulation 7 completed Daphnie Valentin null, [employer] 02/21/2024 09:43:59 Hib, unspecified formulation 8 completed Daphnie Valentin null, [employer] 02/21/2024 09:43:59 Hib, unspecified formulation 7 completed Daphnie Valentin null, [employer] 02/21/2024 09:43:59 IPV 1 completed Daphnie Valentin null, [employer] 02/21/2024 09:43:59 IPV 7 completed Daphnie Valentin null, [employer] 02/21/2024 09:43:59 IPV 7 completed Daphnie Valentin null, [employer] 02/21/2024 09:43:59 MMR 8 completed Daphnie Valentin null, [employer] 02/21/2024 09:43:59 MMR 1 completed Daphnie Valentin null, [employer] 02/21/2024 09:43:59 MMR 8 completed Daphnie Valentin null, [employer] 02/21/2024 09:43:59 COVID-19, mRNA, LNP-S, PF, 100 mcg/0.5mL dose or 50 mcg/0.25mL dose 1 completed Daphnie Hanson null, [employer] 02/21/2024 09:43:59 pneumococcal conjugate PCV 7 1 completed Daphnie Hanson null, [employer] 02/21/2024 09:43:59 Tdap 9 completed Daphnie Valentin null, [employer] 02/21/2024 09:43:59 Tdap 7 completed Daphnei Valentin null, [employer] 02/21/2024 09:43:59 varicella 9 completed Daphniejohnny Hanson null, [employer] 02/21/2024 09:43:59 varicella 8 completed Daphnie Valentin null, [employer] 02/21/2024 09:43:59 polio, unspecified formulation 8 completed Daphnie Valentin null, [employer] 02/21/2024 09:43:59 Influenza, split virus, trivalent, preservative 7 completed Daphnie Valentin null, [employer] 02/21/2024 09:43:59 Hep B, adolescent or pediatric 7 completed Daphnie Valentin null, [employer] 02/21/2024 09:43:59 Hep B, adolescent or pediatric 7 completed Daphnie Valentin null, [employer] 02/21/2024 09:43:59 Hep B, adolescent or pediatric 8 completed Daphnie Valentin null, [employer] 02/21/2024 09:43:59 Hep A, adult 9 completed Daphnie Valentin null, [employer] 02/21/2024 09:43:59 Hep A, adult 8 completed Daphnie Valentin null, [employer] 02/21/2024 09:43:59 DTaP, unspecified formulation 8 completed Daphnie Valentin null, [employer] 02/21/2024 09:43:59 DTaP, unspecified formulation 1 completed Daphnie Valentin null, [employer] 02/21/2024 09:44:00 DTaP, unspecified formulation 7 completed Daphnie Valentin null, [employer] 02/21/2024 09:44:00 DTaP, unspecified formulation 8 completed Daphnie Valentin null, [employer] 02/21/2024 09:44:00 DTaP, unspecified formulation 7 completed Daphnie Hanson null, [employer] 02/21/2024 09:44:00 Influenza, split virus, quadrivalent, PF 0 completed Daphnie Hanson null, [employer] 02/21/2024 09:44:00 Past Encounters Encounter ID Performer Location Encounter Start Date Encounter Closed Date Diagnosis/Indication Diagnosis SNOMED-CT Code Diagnosis ICD10 Code Diagnosis IMO Codes Diagnosis Note [id number] Josselyn Vazquez APRN [facility] [place] 47798-483 3 02/21/2024 09:35:29 02/21/2024 11:30:10 Family history of breast cancer 216460324 Z80.3 Family his tory of malignant neoplasm of ovary 262776682 Z80.41 provided info on 's ovarian cancer screening program Screening for malignant neoplasm of cervix 421606741 Z12.4 Gynecologi c examination 66837622 Z01.419 Implantati on of subcutaneous contraceptive 114797168 Z30.46 [id number] Bev Dorman MD [facility] [place] [id number] 3 03/01/2024 14:31:48 03/01/2024 16:09:14 Contraception care management 389839476 Z30.9 Health Concerns Section Related Observation LastModified by Organization Detai ls LastModified Time None Recorded Concern Status LastModified by Organization Details LastModified Time None Recorded Advance Directives Directive None Recorded Payers Insurance Date Sequence Insurance Name Policy Number Policy Hicks Covered Member ID Hicks Member ID Guarantor Name 03/22/2024 1 UNSPECIFIED REMIT PAYOR Katie Hodge 02/21/2024 1 *SELF PAY* Lavern Hodge 03/01/2024 1 [facility] (MEDICAID HMO) Katie Hodge [id number] Katie Hodge Notes Date Note Type Note Provider Name and Address Organization Details Recorded Time 02/21/2024 text/html ROS as noted in the HPI Pt presents for annual CONTACT [employer] exam. She reports concern for familial h/o breast cancer (mother @41 yo) and ovarian cancer (aunt in her 50's) as well as colon ca and lung ca. She is interested in hereditary cancer panel lab work. She is not currently on anything for contraception as she and her partner were TTC, but she states they are no longer wanting more children and she would like an IUD (unable to place IUD, she would like a Nexplanon instead). Cycles are regular. Denies pelvic pain or problems wtih IC. She does report a h/o abnormal pap and is unsure of when her last one was. Nml bowel and bladder function. Mood is stable. Josselyn Vazquez APRN [address] [place], [address], [employer] 02/21/2024 10:56:54 03/01/2024 text/html ROS as noted in the HPI 28 yo presents for 2 week follow up after Nexplanon placement. She reports mood changes since having it placed, would like it removed. Declines contraception. Normal pap smear. She reports concern for familial h/o breast cancer (mother @ 41 yo) and ovarian cancer (aunt in her 50's) as well as colon ca and lung ca. She is interested in hereditary cancer panel lab work. Bev Dorman MD [address] [place], [address], [employer] 03/01/2024 15:31:14 OBGyn Episode No OBEpisode recorded.
--- OUTSIDE RECORDS SUMMARY | 2025-02-10 08:04 | XMS_ITS | Data Portability ---
Author Organization [facility] Address [address] [place] [address] Assessment No assessment recorded. Plan of Treatment Reminders Order Date Submit Date Provider Last Modified By Organization Details Last Modified Time Details Appointments None recorded. Lab None recorded. Referral None recorded. Procedures None recorded. Surgeries None recorded. Imaging None recorded. Medication Orders trazodone 50 mg tablet 2022 023 [facility], [address] [place] [address], [id number], 3 08:37:35 Patient TargetsNo targets recorded. Patient InstructionsNo instructions recorded. Reason for Referral None Reported. Medical Equipment None Reported. Allergies No known drug allergies Medications Name Sig Start Date Stop Date Status Note LastModified by Organization Details LastModified Time fluoxetine 40 mg capsule 08/02 completed Not Available Not Available Not Available buspirone 5 mg tablet active Not Available Not Available No t Available metformin 500 mg tablet 08/02 completed Not Available Not Available Not Available trazodone 50 mg tablet 1-1/2 tablet p.o. q.h.s. active Not Available Not Available No t Available meclizine 12.5 mg tablet TAKE 1 TABLET BY MOUTH TWICE DAILY NEEDED FOR VERTIGO 08/02 completed Not Available Not Available Not Available metronidazo le 500 mg tablet active Not Available Not Available Not Available phentermine 37.5 mg tablet 08/02 completed Not Available Not Available Not Available amlodipine 5 mg tablet active Not Available Not Available Not Available naproxen sodium 550 mg tablet active Not Available Not Available No t Available mupirocin 2 % topical ointment APPLY OINTMENT TOPICALLY THREE TIMES DAILY FOR 10 DAYS 08/02 completed Not Available Not Available Not Available ondansetron 4 mg disintegrat ing tablet DISSOLVE 1 TABLET IN MOUTH THREE TIMES DAILY NEEDED FOR NAUSEA 08/02 completed Not Available Not Available Not Available sertraline 50 mg tablet active Not Available Not Available Not Available hydroxyzine pamoate 25 mg capsule 08/02 completed Not Available Not Available Not Available azithromyci n 500 mg tablet active Not Available Not Available Not Available Vraylar 1.5 mg capsule 08/02 completed Not Available Not Available Not Available Vraylar 3 mg capsule active Not Available Not Available N ot Available Vitals Date Recorded Body height Body temperature Oxygen saturation Oxygen saturation in Arterial blood by Pulse oximetry Heart rate Respiratory rate Provider Name and Address Organization Details Last Updated DateTime 3 158.75 cm 97.9 [degF] 99 % 99 % 65 /min 18 /min Ventura Jones [facility] & [place] 3 08:23:28 Social History None recorded. Functional Status None recorded. Mental Status None recorded. Family History Nothing Reported. Medical History No medical history recorded. Gynecological HistoryNo gynecological history recorded. Obstetrics History GPAL:G 0 P 0 0 0 0 Past Encounters Encounter ID Performer Location Encounter Start Date Encounter Closed Date Diagnosis/Indication Diagnosis SNOMED-CT Code Diagnosis ICD10 Code Diagnosis IMO Codes Diagnosis Note [id number] Tenzin Chakraborty MD [facility] [address] [phone] 08/02/2022 07:59:41 08/02/2022 12:23:31 Moderate major depression 628695 F32.1 Longstandi ng issue. Seeking counseling is stable at this time. We will continue present meds except for below change trazodone. Letter given see scanned copy in [place] [facility] to clinic in 2 months. Chronic insomnia 6003816 04 F51.04 Insomnia seems to be a little worse she states. Proceed with treatment increase trazodone To 75 mg p.o. q.h.s. Essential hypertension 78757631 I10 continue amlodipine Health Concerns Section Related Observation LastModified by Organization Detai ls LastModified Time None Recorded Concern Status LastModified by Organization Details LastModified Time None Recorded Advance Directives Directive None Recorded Payers Insurance Date Sequence Insurance Name Policy Number Policy Hicks Covered Member ID Hicks Member ID Guarantor Name 10/16/2022 1 [facility] (MEDICAID HMO) Maxine Hodge [id number] Maxine Hodge Notes Date Note Type Note Provider Name and Address Organization Details Recorded Time 08/02/2022 text/html 26-year-old female new patient.Patient reports history of depression for many years. She states she suffered from this in middle school. She is been treated by another practitioner and Shirley Rossi.Patient sees [facility] here in our office. She has been doing counseling for about 2 months.Patient's medications are as listed. She feels stable on these medications at this time. She is having some persistent insomnia.Patient also has essential hypertension and takes amlodipine 5 mg daily. She is tolerating this medicine well.Patient is requesting letter is indicating establishment of care for a court date on August 09. This is a child custody issue.Patient denies any suicidal attempts or any active suicidal ideations. Tenzin Chakraborty MD [address] [place] [address], [phone], [facility] & [place] 08/02/2022 09:17:27 OBGyn Episode No OBEpisode recorded.
[2025-02-10 09:52] LABS: Glucose 1 Hour 90 mg/dL (74-100)
== END 2025-02-10 23:59 | disposition home or self-care (01) ==
LOC: LAB 08:02
PROVIDERS: PCP Nurse Practitioner Family; Visit Provider Obstetrics & Gynecology
DX: O10.919 Unspecified pre-existing hypertension complicating pregnancy, unspecified trimester (principal); O99.210 Obesity complicating pregnancy, unspecified trimester; E66.9 Obesity, unspecified; Z3A.00 Weeks of gestation of pregnancy not specified
CPT/HCPCS: 36415; 82570; 82947; 84156

== ENCOUNTER 2025-02-11 08:42 | Outpatient (CLI) | payer MEDICAID, SELFPAY ==
--- NOTE | 2025-02-11 09:00 | US_ITS ---
PROCEDURE: US OB BIOPHYSICAL PROFILE CLINICAL INDICATION: fundal height measuring ahead COMPARISON: US US OB /MATERNAL DETAIL from 12/12/2024 FINDINGS: Transabdominal sonographic images of the uterus were obtained. From her established due date she is 28weeks 2days. The following parameters are obtained: Viable Fetus in the breech presentation with a right lateral placenta grade 2. Average ultrasound age is 29weeks 5days Estimated weight 1,373g, 3 lb 0 oz The cervix measures 3.45 cm in length Measurements: heart Rate = 152bpm BPD = 29weeks 5days, 80 percentile HC = 30weeks 2days, 77 percentile AC = 29weeks 4days, 78 percentile FL = 28weeks 6days, 48 percentile HC/AC is 1.09 FL/BPD is 0.73 FL/AC is 0.21 77 percentile Amniotic fluid index: 16.37cm ,MVP 6.34 cm Qualitative AFV:2 Breathing movements: 2 Gross Body Movements: 2 Tone: 2 Biophysical profile score: 8 No obvious anomalies evident.Kidneys, profile, stomach, bladder, four-chamber heart three-vessel cord appear normal. IMPRESSION: 1. Viable fetus in the BREECH presentation with a right lateral placenta grade 2. 2. Fluid is within normal limits with an amniotic fluid index 16.37 cm, MVP 6.34 cm. 3. Biophysical profile is 8/8 with good breathing movement and movement seen. 4. There has been good interval growth with the fetus currently 77th percentile. 5. Examination somewhat difficult due to the patient's body habitus. 6. Limited anatomical scan appears normal. Dictated by: Srinivasa Mcleod MD 02/12/2025 08:57 Srinivasa Mcleod MD in [facility] 02/12/2025 08:57
== END 2025-02-11 23:59 | disposition home or self-care (01) ==
LOC: RAD 08:43
PROVIDERS: PCP Nurse Practitioner Family; Visit Provider Obstetrics & Gynecology
DX: O32.1XX0 Maternal care for breech presentation, not applicable or unspecified (principal); O10.913 Unspecified pre-existing hypertension complicating pregnancy, third trimester; Z3A.28 28 weeks gestation of pregnancy
CPT/HCPCS: 76816; 76819

== ENCOUNTER 2025-02-21 17:13 | Outpatient (CLI) | payer MEDICAID, SELFPAY ==
--- OUTSIDE RECORDS SUMMARY | 2025-02-21 17:16 | XMS_ITS | Data Portability ---
Author Organization [facility] Address [address] [place] [address] Assessment No assessment recorded. Plan of Treatment Reminders Order Date Submit Date Provider Last Modified By Organization Details Last Modified Time Details Appointments None recorded. Lab cancer related large scale gene targeted mutation analysis, blood or tissue 2023 [email or web address] [facility], [address] [place] [address], [address], 4 09:59:54 pap, IG + reflex HPV 2023 024 LODI [facility]), [address] [place], [address], 4 15:08:22 Referral None recorded. Procedures None recorded. Surgeries None recorded. Imaging None recorded. Medication Orders Vitamin 27 mg iron-0.8 mg tablet 2023 024 Formerly [facility], [address], [place], [id number], 4 15:32:14 Patient TargetsNo targets recorded. Patient Instructions Encounter Date Encounter Id Patient Instructions Last Modified By Organization Details Last Modified Time 03/01/2024 [id number] learning about control [email or web address] Not available 03/01/2024 15:23:57 surgical trays* [email or web address] Not availab le 04/10/2024 07:21:29 Reason for Referral None Reported. Results Created Date Observation Date Name Description Value Unit Range Abnormal Flag Note LastModifiedBy Organization Detail LastModifiedTime 02/21/2002/22/2024 IGP,A PTIMA HPV,A GE GDLN age gdln acog testing Not Available [facility] ([facility]) [address] [place], [address], 02/27/2024 15:08:22 02/21/2002/27/2024 IGP,A PTIMA HPV,A GE GDLN diagnosis: Abelardo perez NEGAT KUMAR FOR INTRA EPITH ELIAL LESIO N OR JENNIFER NI . THIS SPECI MEN WAS RESCR EENED PART OF OUR QUALI TY CONTR OL PROGR AM. Not Available [facility] ([facility]) [address] [place], [address], 02/27/2024 15:08:22 02/21/2002/27/2024 IGP,A PTIMA HPV,A GE GDLN specimen adequacy: Abelardo perez Satis facto ry for evalu ation . Endoc ervic al and/o r squam ous metap lasti c cells (endo cervi steven compo nent) are prese nt. Not Available [facility] ([facility]) [address] [place], [address], 02/27/2024 15:08:22 02/21/2002/27/2024 IGP,A PTIMA HPV,A GE GDLN clinician provided ICD10: Abelardo perez Z12.4 Z80.4 1 Not Available [facility] ([facility]) [address] [place], [address], 02/27/2024 15:08:22 02/21/2002/27/2024 IGP,A PTIMA HPV,A GE GDLN performed by: Lashawn Grider (ASCP ) Not Available [facility] ([facility]) [address] [place], [address], 02/27/2024 15:08:22 02/21/2002/27/2024 IGP,A PTIMA HPV,A GE GDLN QC reviewed by: Abelardo Fierro r, Super visor y [employer] marc t (ASCP ) Not Available [facility] ([facility]) [address] [place], [address], 02/27/2024 15:08:22 02/21/20 24 02/27/2024 IGP,A PTIMA HPV,A GE GDLN . . Not Available [facility] ([facility]) [address] [facility], [place], [address], 02/27/2024 15:08:22 02/21/2002/27/2024 IGP,A PTIMA HPV,A GE [...] ts do occur . Not Available [facility] ([facility]) [address] [facility], [place], [address], 02/27/2024 15:08:22 02/21/2002/27/2024 IGP,A PTIMA HPV,A GE GDLN test methodology: Abelardo perez This liqui d based ThinP rep(R ) pap test was scree makeda with the use of an image guide d syste m. Not Available [facility] ([facility]) [address] [place], [address], 02/27/2024 15:08:22 02/21/20 24 02/27/2024 IGP,A PTIMA HPV,A GE GDLN . Abelardo perez The HPV DNA refle x crite rajesh were not met with this speci men resul t there fore, no HPV testi ng was perfo rmed. Not Available [facility] ([facility]) [address] [facility], [place], [address], 02/27/2024 15:08:22 02/21/20 24 04/19/2024 VISTA SEQ HERED . CANCE R PANEL preauthoriza tion Commen t Prior autho rizat ion revie w compl ete Not Available [facility] ([facility]) [address] [facility], [place], [address], 04/25/2024 14:07:33 02/21/20 24 04/25/2024 VISTA SEQ HERED . CANCE R PANEL specimen type Whole Blood Not Available [facility] ([facility]) [address] [facility], [place], [address], 04/25/2024 14:07:33 02/21/20 24 04/25/2024 VISTA SEQ HERED . CANCE R PANEL result summary Negati ve No clini jaguar signi fican t seque nce or copy numbe r varia nts were detec cristiane. No patho genic or varia nts of [facility] clini steven signi fican ce were detec cristiane by full gene seque ncing or delet ion/d uplic ation enrique sis for any of the genes teste d in this panel . Not Available [facility] ([facility]) [address] [facility], [place], [address], 04/25/2024 14:07:33 02/21/20 24 04/25/2024 VISTA SEQ HERED . CANCE R PANEL result and interpretati on EVENT MGR Not Available [facility] ([facility]) [address] [facility], [place], [address], 04/25/2024 14:07:33 02/21/20 24 04/25/2024 VISTA SEQ HERED . CANCE R PANEL recommendati ons Commen t Ken ic couns dilcia is recom cookie d to discu ss the clini steven impli catio ns of this resul t. Ken ic couns spencer are avail able for healt h care provi ders to discu ss this resul t furth er at [phone] SHANNAN. To refer your patie nt for ken ic couns dilcia hancock Integ rated Ken ics, mary jones call the sched uling line at . NCCN guide lines recom mend consi derat ion of tumor seque ncing in indiv idual s with tumor s showi ng MMR defic iency and no germl ine patho genic varia nt (Gene tic/F amili al High- Risk Asses sment : Color ectal , Versi on ). [place] [address] 2 MLH1/ MSH2/ MSH6/ PMS2/ EPCAM Somat ic Tumor Misma tch Repai r Seque ncing and Delet ion/D uplic ation Test is avail able to perfo rm this enrique sis. For more infor mary robles conta ct [phone] SHANNAN to speak with our labor atory ken ic coord inato rs. LIST OF ALL GENES IN PANEL APC MSH2 TP53 BRCA1 CHEK2 CDKN2 A PRKAR 1A DASHAWN MSH6 CDH1 BRCA2 PALB2 RAD51 C RAD51 D NBN PMS2 MLH1 BARD1 SMAD4 BMPR1 A FAM17 5A CDK4 PTEN STK11 BRIP1 EPCAM MUTYH (bial lelic ) Not Available [facility] ([facility]) [address] [facility], [place], [address], 04/25/2024 14:07:33 02/21/20 24 04/25/2024 VISTA SEQ [...] be [facility] . Likel y patho genic varia nts are stron gly sugge stive of belinda l gene funct ion being negat ively affec cristiane, and when combi makeda with other evide nce of cance r, may be used in [facility] . Varia nts of uncer tain [...] be used in [facility]i [facility] but addit ional monit oring may [...] able upon reque st. Not Available [facility] ([facility]) [address], [place], [address], 04/25/2024 14:07:33 02/21/20 24 04/25/2024 VISTA SEQ [...] istra tion (FDA) . Not Available [facility] ([facility]) [address] [facility], [place], [address], 04/25/2024 14:07:33 02/21/20 24 04/25/2024 VISTA SEQ [...] Med. 2013 Dec;1 5(9): 733-4 7. 3. Gab Hernandez. et al. Frequ ency of mutat [...] Mar;1 6(11) :830- 7. Not Available [facility] ([facility]) [address] [facility], [place], [address], 04/25/2024 14:07:33 02/21/20 24 04/25/2024 VISTA SEQ HERED . CANCE R PANEL director review Commen t Relea sed By: CARLA ORELLANA, PhD, Direc tor PERFO RMING LABOR ATORI ES TG [facility] [address] [facility] , [place] [address] , Labor atory Direc tor: Francisco Juárez M.D., Ph.D. Techn ical compo nent, enrique sis, perfo rmed at [address] [place], [address] , Francisco Juárez MD, PhD. Dorinda guy compo nent, perfo rmed at Labor atory [facility] [employer] [facility], [address], [place], [address] , Labor atory Direc tor Carla orellana, PhD, FACMG . For marvini wade, the physi christal banuelos conta ct the lab at . Not Available [facility] ([facility]) [address] [place], [address], 04/25/2024 14:07:33 02/21/20 24 04/25/2024 VISTA SEQ HERED . CANCE R PANEL pdf . Not Available [facility] ([facility]) [address] [place], [address], 04/25/2024 14:07:33 Result Notes None recorded. Procedures Surgical History Date Name Laterality Status Provider Name and Address Organization Details Recorded Time 4 Control Implant Removal completed Bev Dorman MD [address] [place] [address], [phone], [employer] 03/01/2024 15:23:43 4 IUD Insertion completed Josselyn Vazquez APRN [address] [place] [address], [phone], [employer] 02/21/2024 10:43:32 4 Control Implant Insertion completed Josselyn Vazquez APRN [address] [place] [address], [phone], [employer] 02/21/2024 10:43:41 delivery completed Daphnie Hanson [employer] 02/21/2024 09:48:32 procedure on labia completed Daphnie Hanson [employer] 02/21/2024 09:49:07 Imaging Results None recorded. Procedure Notes None recorded. Medical Equipment None Reported. Allergies Allergen ID Allergen Name Allergen Category Reaction Reaction Severity Criticality Documentation Date Start Date Code Code System Note Provider Name and Address Organization Details Recorded Time 50766 amoxicill in medicatio n Not available Not available Not available 02/21/2024 723 RxNorm [facility] 4 09:45:59 Medications Name Sig Start Date [...] Last Updated DateTime 157.48 cm 33 kg/m2 54777.0 6 g 91 /min 100 % 100 % 118/84 mm[Hg] Daphnie Hanson [employer] 09:45:31 Date Recorded Body height Body mass index (BMI) Body weight Heart rate Oxygen saturation Oxygen saturation in Arterial blood by Pulse oximetry Systolic And Diastolic Provider Name and Address Organization Details Last Updated DateTime 157.48 cm 32.9 kg/m2 27612.6 3 g 85 /min 100 % 100 % 131/89 mm[Hg] Martin Ocampo [employer] 14:58:37 Social History Question Answer Notes LastModified by Organizat ion Details LastModified Time Tobacco Smoking Status Never Smoker Daphnie reyes [employer] 02/21/2024 09:48:03 If You Are , What Was Your Level Of Alcohol Consumption Prior To ? None [email or web address] Information not available 02/21/2024 What Is Your Level Of Caffeine Consumption? Moderate [email or web address] Information not available 02/21/2024 In The 14 Days Before Symptom Onset, Have You Had Close Contact With A Laboratory-confir med COVID-19 While That Case Was Ill? No Information not available 03/01/2024 Have You Been To An Area Known To Be High Risk For COVID-19? No Information not available 03/01/2024 Which Illicit Or Recreational Drugs Have You Used? [place] [email or web address] Information not available 02/21/2024 What Was The Date Of Your Most Recent Tobacco Screening? 03/01/2024 Information not available 03/01/2024 Has Tobacco Cessation Counseling Been Provided? Yes [email or web address] Information not available 02/21/2024 On What Date Was Tobacco Cessation Counseling Provided? 03/01/2024 Information not available 03/01/2024 Have You Recently Traveled Abroad? No Information not available 03/01/2024 Have You Used IV Drugs? No [email or web address] Information not available 02/21/2024 Sex: Female Functional Status Question Answer Note LastModified by Organizat ion Details LastModified Time Do you use any illicit or recreational drugs? Yes [email or web address] Information not available 02/21/2024 Do you or have you ever used any other forms of tobacco or nicotine? Yes [email or web address] Information not available 02/21/2024 What is your level of alcohol consumption? None [email or web address] Information not available 02/21/2024 Do you or have you ever used smokeless tobacco? Never used smokeless tobacco [email or web address] Information not available 02/21/2024 Do you or have you ever used e-cigarettes or vape? Current user of electronic cigarettes [email or web address] Information not available 02/21/2024 Mental Status None recorded. Family History Nothing Reported. Medical History Condition Response Allergies (Food, seasonal, environmental ) N Other N Hyperthyroidism N Breast Cancer N Blood Transfusion N Drug/Latex Allergies/Reactions N Emergency room visit since last appointm ent. N Dermatologic Disorders N Hypothyroidism N Lung Disease N Defects or Inherited Disease N Breast Problem N Gestational Diabetes N Hematologic disorders N Anesthesia Complications N History of STI N Deep Vein Thrombosis N Polycystic ovary syndrome N Anxiety Disorder N Autoimmune disease N Vision or Eye Problems N Arthritis N Polyps N Infertility N Mental Disorder N Congenital Anomalies N Acid Reflux (GERD) N History of abnormal pap N Cancer N Stroke N Neurologic/Epilepsy N Endometriosis N High Cholesterol N Psychiatric/Mental Health Condition N Organ Transplant N Schizophrenia N Dialysis N Fibromyalgia N Headaches N Kidney Disease N Heart Problems N Hospitalizations N Thyroid Problems N Kidney or Bladder Problems N GI Problems N Acne N Eating Disorder N Anemia N Art (IVF or FET) N Mental Illness N Ovarian Cancer N Diabetes N Pulmonary (TB, Asthma) N Hepatitis/Liver Disease [...] quadrivalent, preservative 9 completed Daphnie Valentin null, [employer] 02/21/2024 09:43:59 Hib, unspecified formulation 8 completed Daphnie Valentin null, [employer] 02/21/2024 09:43:59 Hib, unspecified formulation 7 completed Daphnie Valentin null, [employer] 02/21/2024 09:43:59 Hib, unspecified formulation 8 completed Daphnie Valentin null, [employer] 02/21/2024 09:43:59 Hib, unspecified formulation 7 completed Daphnie Valentin null, [employer] 02/21/2024 09:43:59 IPV 1 completed Daphnie Valentin null, [employer] 02/21/2024 09:43:59 IPV 7 completed Daphnie Valentin null, [employer] 02/21/2024 09:43:59 IPV 7 completed Daphnie Valentin null, [employer] 02/21/2024 09:43:59 MMR 8 completed Daphnie Valentin null, [employer] 02/21/2024 09:43:59 MMR 1 completed Daphnie Valentin null, [employer] 02/21/2024 09:43:59 MMR 8 completed Daphnie Valentin null, [employer] 02/21/2024 09:43:59 COVID-19, mRNA, LNP-S, PF, 100 mcg/0.5mL dose or 50 mcg/0.25mL dose 1 completed Daphnie Hanson null, [employer] 02/21/2024 09:43:59 pneumococcal conjugate PCV 7 1 completed Daphnie Hanson null, [employer] 02/21/2024 09:43:59 Tdap 9 completed Daphnie Valentin null, [employer] 02/21/2024 09:43:59 Tdap 7 completed Daphnie Valentin null, [employer] 02/21/2024 09:43:59 varicella 9 completed Daphniejohnny Hanson null, [employer] 02/21/2024 09:43:59 varicella 8 completed Daphnie Valentin null, [employer] 02/21/2024 09:43:59 polio, unspecified formulation 8 completed Daphnie Valentin null, [employer] 02/21/2024 09:43:59 Influenza, split virus, trivalent, preservative 7 completed Daphnie Valentin null, [employer] 02/21/2024 09:43:59 Hep B, adolescent or pediatric 7 completed Daphnie Valentin null, [employer] 02/21/2024 09:43:59 Hep B, adolescent or pediatric 7 completed Daphnie Valentin null, [employer] 02/21/2024 09:43:59 Hep B, adolescent or pediatric 8 completed Daphnie Valentin null, [employer] 02/21/2024 09:43:59 Hep A, adult 9 completed Daphnie Valentin null, [employer] 02/21/2024 09:43:59 Hep A, adult 8 completed Daphnie Valentin null, [employer] 02/21/2024 09:43:59 DTaP, unspecified formulation 8 completed Daphnie Valentin null, [employer] 02/21/2024 09:43:59 DTaP, unspecified formulation 1 completed Daphnie Valentin null, [employer] 02/21/2024 09:44:00 DTaP, unspecified formulation 7 completed Daphnie Valentin null, [employer] 02/21/2024 09:44:00 DTaP, unspecified formulation 8 completed Daphnie Valentin null, [employer] 02/21/2024 09:44:00 DTaP, unspecified formulation 7 completed Daphnie Hanson null, [employer] 02/21/2024 09:44:00 Influenza, split virus, quadrivalent, PF 0 completed Daphnie Hanson null, [employer] 02/21/2024 09:44:00 Past Encounters Encounter ID Performer Location Encounter Start Date Encounter Closed Date Diagnosis/Indication Diagnosis SNOMED-CT Code Diagnosis ICD10 Code Diagnosis IMO Codes Diagnosis Note [id number] Josselyn Vazquez APRN [employer] [place] [id number] 02/21/2024 09:35:29 02/21/2024 11:30:10 Family history of breast cancer 550421432 Z80.3 Family his tory of malignant neoplasm of ovary 721698780 Z80.41 provided info on 's ovarian cancer screening program Screening for malignant neoplasm of cervix 000526937 Z12.4 Gynecologi c examination 40661514 Z01.419 Implantati on of subcutaneous contraceptive 467341315 Z30.46 [id number] Bev Dorman MD [employer] [place] [id number] 03/01/2024 14:31:48 03/01/2024 16:09:14 Contraception care management 831782856 Z30.9 Health Concerns Section Related Observation LastModified by Organization Detai ls LastModified Time None Recorded Concern Status LastModified by Organization Details LastModified Time None Recorded Advance Directives Directive None Recorded Payers Insurance Date Sequence Insurance Name Policy Number Policy Hicks Covered Member ID Hicks Member ID Guarantor Name 03/22/2024 1 UNSPECIFIED REMIT PAYOR Katie Hodge 02/21/2024 1 *SELF PAY* Lavern Hodge 02/10/2025 1 [facility] (MEDICAID HMO) Katie Hodge [id number] Katie Hodge Notes Date Note Type Note Provider Name and Address Organization Details Recorded Time 02/21/2024 text/html ROS as noted in the HPI Pt presents for annual [employer] exam. She reports concern for familial h/o [...] Mood is stable. Josselyn Vazquez APRN [address] [place], [address], [employer] 02/21/2024 10:56:54 03/01/2024 text/html ROS as noted [...] panel lab work. Bev Dorman MD [address] [place], [address], [employer]. 03/01/2024 15:31:14 OBGyn Episode No OBEpisode recorded.
[2025-02-21 17:27] VITALS: BMI 36.2
[2025-02-21 17:35] VITALS: BP 153/91; PULSE 107; RESP 19; TEMP 36.7; O2SAT 99
[2025-02-21 17:45] LABS: Bilirubin,Urine Negative (Negative); Color,Urine YELLOW (Yellow); Glucose,Urine (UA) Negative (Negative); Ketones,Urine Negative (Negative); Leukocyte Esterase,Urine Negative (Negative); Microscopic, Urine URINE MICROSCOPIC (MICROSCOPIC); PH,Urine 7.0 (5.0-8.5); Protein,Urine Negative (Negative); Specific Gravity, Urine <= 1.005 (1.005-1.030); Urobilinogen,Urine 0.2 EU/dl (0.2)
[2025-02-21 17:48] VITALS: BMI 36.2
[2025-02-21 17:50] VITALS: BP 144/100
[2025-02-21 17:52] LABS: Bacteria,Urine Trace /lpf; WBC,Urine Occasional #/hpf (0-3)
[2025-02-21 18:11] VITALS: BP 130/90
[2025-02-21 18:31] LABS: Hematocrit 33.5 % (37.0-47.0); Hemoglobin 11.4 g/dL (12.2-16.2); Immature Granulocytes % 0.7 %; Mean Corpuscular HGB Conc 34.0 g/dL (31.8-35.4); Mean Corpuscular Hemoglobin 30.0 pg (27.0-31.2); Mean Corpuscular Volume 88.2 fl (81-99); Nucleated Red Blood Cells % 0 %; Platelet Count 233 K/mm3 (142-424); Red Blood Count 3.80 M/mm3 (4.20-5.40); Red Cell Distribution Width-SD 40.3 fL; White Blood Count 11.3 K/mm3 (4.8-10.8)
[2025-02-21 18:36] LABS: Albumin Level 3.5 g/dl (3.5-5.0); Chloride 104 mmol/L (98-107)
[2025-02-21 18:37] LABS: Potassium 3.7 mmoL/L (3.5-5.1); Sodium 132 mmol/L (136-145)
[2025-02-21 18:39] LABS: Alanine Aminotransferase 14 U/L (12-78); Alkaline Phosphatase 155 U/L (38-126); Anion Gap 5.7 mEq/L (5-15); Aspartate Amino Transferase 25 U/L (14-36); Bilirubin,Total 0.2 mg/dl (0.2-1.3); Blood Urea Nitrogen 6 mg/dl (7-17); Carbon Dioxide 26 mmol/L (22.0-30.0); Creatinine Clearance Estimated 297 mL/min (50-200); Creatinine,Serum 0.40 mg/dl (0.52-1.04); Estimated Glomerular Filt Rate 190 ml/min (>60); GFR (African American) 230 ML/MIN (>60)
[2025-02-21 18:40] VITALS: BP 128/75
[2025-02-21 18:40] LABS: Albumin/Globulin Ratio 1.2 (1.1-1.8); Calcium 8.5 mg/dl (8.4-10.2); Globulin 3.0 g/dL (1.3-3.2); Glucose 78 mg/dl (74-100); Total Protein,Serum 6.5 g/dl (6.3-8.2); Uric Acid 2.2 mg/dl (2.5-6.2)
[2025-02-21 18:55] VITALS: BP 123/69
[2025-02-21] MEDS: LABETALOL 100MG TABLET 200 MG PO (18:57)
[2025-02-21 20:00] VITALS: BP 114/69; PULSE 100; RESP 16; TEMP 36.6; O2SAT 99
== END 2025-02-21 20:05 | disposition home or self-care (01) ==
LOC: OBOUT 17:15 → OB 17:16
PROVIDERS: PCP Nurse Practitioner Family; Visit Provider Obstetrics & Gynecology
DX: O16.3 Unspecified maternal hypertension, third trimester (principal); Z3A.29 29 weeks gestation of pregnancy
CPT/HCPCS: 80053; 81001; 82570; 84156; 84550; 85025

== ENCOUNTER 2025-03-10 12:41 | Outpatient (CLI) | payer MEDICAID, SELFPAY ==
--- OUTSIDE RECORDS SUMMARY | 2025-03-10 12:43 | XMS_ITS | Data Portability ---
Author Organization [facility] Address [address] [place] [address] Assessment No assessment recorded. Plan of Treatment Reminders Order Date Submit Date Provider Last Modified By Organization Details Last Modified Time Details Appointments None recorded. Lab None recorded. Referral None recorded. Procedures None recorded. Surgeries None recorded. Imaging None recorded. Medication Orders trazodone 50 mg tablet 2022 023 [facility], [address] [place] [address], [id number], 3 08:37:35 Patient TargetsNo targets recorded. Patient [...] % 65 /min 18 /min [facility] [place] 3 08:23:28 Social History None recorded. Functional Status None recorded. Mental Status None recorded. Family History Nothing Reported. Medical History No medical history recorded. Gynecological HistoryNo gynecological history recorded. Obstetrics History GPAL:G 0 P 0 0 0 0 Past Encounters Encounter ID Performer Location Encounter Start Date Encounter Closed Date Diagnosis/Indication Diagnosis SNOMED-CT Code Diagnosis ICD10 Code Diagnosis IMO Codes Diagnosis Note [id number] Tenzin Chakraborty MD [email or web address] [address] [address] 08/02/2022 07:59:41 08/02/2022 12:23:31 Moderate major depression 470869 F32.1 Longstandi ng issue. Seeking counseling is stable at this time. We will continue present meds except for below change trazodone. Letter given see scanned copy in [place] [facility] to clinic in 2 months. Chronic insomnia 9741419 04 F51.04 Insomnia seems to be a little worse she states. Proceed with treatment increase trazodone To 75 mg p.o. q.h.s. Essential hypertension 32262982 I10 continue amlodipine Health Concerns Section Related Observation LastModified by Organization Detai ls LastModified Time None Recorded Concern Status LastModified by Organization Details LastModified Time None Recorded Advance Directives Directive None Recorded Payers Insurance Date Sequence Insurance Name Policy Number Policy Hicks Covered Member ID Hicks Member ID Guarantor Name 10/16/2022 1 [facility] (MEDICAID HMO) Maxine Hodge [id number] Maxine Hodge Notes Date Note Type Note [...] any active suicidal ideations. Tenzin Chakraborty MD [address] [place] [address], [phone], [facility] [place] 08/02/2022 09:17:27 OBGyn Episode No OBEpisode recorded.
--- OUTSIDE RECORDS SUMMARY | 2025-03-10 12:43 | XMS_ITS | Data Portability ---
Author Organization [facility] [place] [employer] [facility] [place] Address [address] [place] [address] Assessment No assessment recorded. Plan of Treatment Reminders Order Date Submit Date Provider Last Modified By Organization Details Last Modified Time Details Appointments None recorded. Lab cancer related large scale gene targeted mutation analysis, blood or tissue 2023 [email or web address] [facility], [address] [place] [address], [address], 4 09:59:54 pap, IG + reflex HPV 2023 024 LILBURN [facility]), [address] [place], [address], 4 15:08:22 Referral None recorded. Procedures None recorded. Surgeries None recorded. Imaging None recorded. Medication Orders Vitamin 27 mg iron-0.8 mg tablet 2023 024 [facility], [address], [place], [id number], 4 15:32:14 Patient TargetsNo targets recorded. Patient Instructions Encounter Date Encounter Id Patient Instructions Last Modified By Organization Details Last Modified Time 03/01/2024 [id number] learning about control [email or web address] Not available 03/01/2024 15:23:57 surgical trays* [email or web address] Not availab le 04/10/2024 07:21:29 Reason for Referral None Reported. Results Created Date Observation Date Name Description Value Unit Range Abnormal Flag Note LastModifiedBy Organization Detail LastModifiedTime 02/21/2002/22/2024 IGP,A PTIMA HPV,A GE GDLN age gdln acog testing Not Available [facility] ([facility]) [address] [place], [address], 02/27/2024 15:08:22 02/21/2002/27/2024 IGP,A PTIMA HPV,A GE GDLN diagnosis: Abelardo perez NEGAT KUMAR FOR INTRA EPITH ELIAL LESIO N OR JENNIFER NI . THIS SPECI MEN WAS RESCR EENED PART OF OUR QUALI TY CONTR OL PROGR AM. Not Available [facility] ([facility]) [address] [place], [address], 02/27/2024 15:08:22 02/21/2002/27/2024 IGP,A PTIMA HPV,A GE GDLN specimen adequacy: Abelardo perez Satis facto ry for evalu ation . Endoc ervic al and/o r squam ous metap lasti c cells (endo cervi steven compo nent) are prese nt. Not Available [facility] ([facility]) [address] [place], [address], 02/27/2024 15:08:22 02/21/2002/27/2024 IGP,A PTIMA HPV,A GE GDLN clinician provided ICD10: Abelardo perez Z12.4 Z80.4 1 Not Available [facility] ([facility]) [address] [place], [address], 02/27/2024 15:08:22 02/21/2002/27/2024 IGP,A PTIMA HPV,A GE GDLN performed by: Lashawn Grider (ASCP ) Not Available [facility] ([facility]) [address] [place], [address], 02/27/2024 15:08:22 02/21/2002/27/2024 IGP,A PTIMA HPV,A GE GDLN QC reviewed by: Abelardo Fierro r, Super visor y Cytot echno marc t (ASCP ) Not Available [facility] ([facility]) [address] [place], [address], 02/27/2024 15:08:22 02/21/20 24 02/27/2024 IGP,A PTIMA HPV,A GE GDLN . . Not Available [facility] ([facility]) [address] [facility], [place], [address], 02/27/2024 15:08:22 02/21/2002/27/2024 IGP,A PTIMA HPV,A GE [...] . Not Available [facility] ([facility]) [address] [facility], [place], [address], 02/27/2024 15:08:22 02/21/2002/27/2024 IGP,A PTIMA HPV,A GE GDLN test methodology: Abelardo perez This liqui d based ThinP rep(R ) pap test was scree makeda with the use of an image guide d syste m. Not Available [facility] ([facility]) [address] [place], [address], 02/27/2024 15:08:22 02/21/20 24 02/27/2024 IGP,A PTIMA HPV,A GE GDLN . Abelardo perez The HPV DNA refle x crite rajesh were not met with this speci men resul t there fore, no HPV testi ng was perfo rmed. Not Available [facility] ([facility]) [address] [facility], [place], [address], 02/27/2024 15:08:22 02/21/20 24 04/19/2024 VISTA SEQ HERED . CANCE R PANEL preauthoriza tion Commen t Prior autho rizat ion revie w compl ete Not Available [facility] ([facility]) [address] [facility], [place], [address], 04/25/2024 14:07:33 02/21/20 24 04/25/2024 VISTA SEQ HERED . CANCE R PANEL specimen type Whole Blood Not Available [facility] ([facility]) [address] [facility], [place], [address], 04/25/2024 14:07:33 02/21/20 24 04/25/2024 VISTA SEQ HERED . CANCE R PANEL result summary Negati ve No clini jaguar signi fican t seque nce or copy numbe r varia nts were detec cristiane. No patho genic or varia nts of formerly [facility] clini steven signi fican ce were detec cristiane by full gene seque ncing or delet ion/d uplic ation enrique sis for any of the genes teste d in this panel . Not Available [facility] ([facility]) [address] [facility], [place], [address], 04/25/2024 14:07:33 02/21/20 24 04/25/2024 VISTA SEQ HERED . CANCE R PANEL result and interpretati on ASSISTED SALES REPRESENTATIVE Not Available [facility] ([facility]) [address] [facility], [place], [address], 04/25/2024 14:07:33 02/21/20 24 04/25/2024 VISTA SEQ HERED . CANCE R PANEL recommendati ons Commen t Ken ic couns dilcia is recom cookie d to discu ss the clini steven impli catio ns of this resul t. Ken ic couns spencer are avail able for healt h care provi ders to discu ss this resul t furth er at [phone] SHANNAN. To refer your patie nt for [...] ectal , Versi on ). [place] [address] 2 MLH1/ MSH2/ MSH6/ PMS2/ EPCAM Somat ic Tumor Misma tch Repai r Seque ncing and Delet ion/D uplic ation Test is avail able to perfo rm this enrique sis. For more infor mary robles conta ct [phone] SHANNAN to speak with our labor atory ken ic coord inato rs. LIST OF ALL GENES IN PANEL APC MSH2 TP53 BRCA1 CHEK2 CDKN2 A PRKAR 1A DASHAWN MSH6 CDH1 BRCA2 PALB2 RAD51 C RAD51 D NBN PMS2 MLH1 BARD1 SMAD4 BMPR1 A FAM17 5A CDK4 PTEN STK11 BRIP1 EPCAM MUTYH (bial lelic ) Not Available [facility] ([facility]) [address] [facility], [place], [address], 04/25/2024 14:07:33 02/21/20 24 04/25/2024 VISTA SEQ [...] be used in clini steven decis ion [facility] . Likel y patho genic varia nts are stron gly sugge stive of belinda l gene funct ion being negat ively affec cristiane, and when combi makeda with other evide nce of cance r, may be used in clini steven decis ion [facility] . Varia nts of uncer tain signi [...] be used in clini steven decis ion [facility] but addit ional monit oring may be [...] st. Not Available [facility] ([facility]) [address], [place], [address], 04/25/2024 14:07:33 02/21/20 24 04/25/2024 VISTA SEQ [...] . Not Available [facility] ([facility]) [address] [facility], [place], [address], 04/25/2024 14:07:33 02/21/20 24 04/25/2024 VISTA SEQ [...] ty Assur ance Commi ttee. AC clini stevne labor atory stand ards for next- gener [...] 7. Not Available [facility] ([facility]) [address] [facility], [place], [address], 04/25/2024 14:07:33 02/21/20 24 04/25/2024 VISTA SEQ HERED . CANCE R PANEL director review Commen t Relea sed By: CARLA ORELLANA, PhD, Direc tor PERFO RMING LABOR ATORI ES TG [facility] [address] [facility] , [place] [address] , Labor atory Direc tor: Francisco Juárez M.D., Ph.D. Techn ical compo nent, enrique sis, perfo rmed at [address] [place], [address] , Francisco Juárez MD, PhD. Dorinda guy compo nent, perfo rmed at Labor at[facility] [employer], [address], [place], [address] , Labor atory Direc tor Carla orellana, PhD, FACMG . For marvini wade, the physi christal banuelos conta ct the lab at . Not Available [facility] ([facility]) [address] [place], [address], 04/25/2024 14:07:33 02/21/20 24 04/25/2024 VISTA SEQ HERED . CANCE R PANEL pdf . Not Available [facility] ([facility]) [address] [place], [address], 04/25/2024 14:07:33 Result Notes None recorded. Procedures Surgical History Date Name Laterality Status Provider Name and Address Organization Details Recorded Time 4 Control Implant Removal completed Bev Dorman MD [address] [place] [address], [phone], [employer] 03/01/2024 15:23:43 4 IUD Insertion completed Josselyn Vazquez APRN [address] [place] [address], [phone], [employer] 02/21/2024 10:43:32 4 Control Implant Insertion completed Josselyn Vzaquez APRN [address] [place] [address], [phone], [employer] 02/21/2024 10:43:41 delivery completed Daphnie Hanson [employer] 02/21/2024 09:48:32 procedure on labia completed Daphnie Hanson [employer] 02/21/2024 09:49:07 Imaging Results None recorded. Procedure Notes None recorded. Medical Equipment None Reported. Allergies Allergen ID Allergen Name Allergen Category Reaction Reaction Severity Criticality Documentation Date Start Date Code Code System Note Provider Name and Address Organization Details Recorded Time 23204 amoxicill in medicatio n Not available Not available Not available 02/21/2024 723 RxNorm [facility] 4 09:45:59 Medications Name Sig Start [...] Last Updated DateTime 157.48 cm 33 kg/m2 84770.0 6 g 91 /min 100 % 100 % 118/84 mm[Hg] Daphnie Hanson [employer] 09:45:31 Date Recorded Body height Body mass index (BMI) Body weight Heart rate Oxygen saturation Oxygen saturation in Arterial blood by [employer] oxim[employer] Systolic And Diastolic Provider Name and Address Organization Details Last Updated DateTime 157.48 cm 32.9 kg/m2 80109.6 3 g 85 /min 100 % 100 % 131/89 mm[Hg] Martin Ocampo [employer] 14:58:37 Social History Question Answer Notes LastModified by Organizat ion Details LastModified Time Tobacco Smoking Status Never Smoker Daphnie reyes [employer] 02/21/2024 09:48:03 If You Are , What Was Your Level Of Alcohol Consumption Prior To ? None [email or web address] Information not available 02/21/2024 What Is Your Level Of Caffeine Consumption? Moderate [email or web address] Information not available 02/21/2024 In The 14 Days Before Symptom Onset, Have You Had Close Contact With A Laboratory-confir med COVID-19 While That Case Was Ill? No Information not available 03/01/2024 Have You Been To An Area Known To Be High Risk For COVID-19? No Information not available 03/01/2024 Which Illicit Or Recreational Drugs Have You Used? Darien [email or web address] Information not available 02/21/2024 What Was The Date Of Your Most Recent Tobacco Screening? 03/01/2024 Information not available 03/01/2024 Has Tobacco Cessation Counseling Been Provided? Yes [email or web address] Information not available 02/21/2024 On What Date Was Tobacco Cessation Counseling Provided? 03/01/2024 Information not available 03/01/2024 Have You Recently Traveled Abroad? No Information not available 03/01/2024 Have You Used IV Drugs? No [email or web address] Information not available 02/21/2024 Sex: Female Functional Status Question Answer Note LastModified by Organizat ion Details LastModified Time Do you use any illicit or recreational drugs? Yes Information not available 02/21/2024 Do you or have you ever used any other forms of tobacco or nicotine? Yes [email or web address] Information not available 02/21/2024 What is your level of alcohol consumption? None [email or web address] Information not available 02/21/2024 Do you or have you ever used smokeless tobacco? Never used smokeless tobacco [email or web address] Information not available 02/21/2024 Do you or have you ever used e-cigarettes or vape? Current user of electronic cigarettes [email or web address] Information not available 02/21/2024 Mental Status None recorded. Family History Nothing Reported. Medical History Condition Response Allergies (Food, seasonal, environmental ) N Other N Hyperthyroidism N Breast Cancer N Drug/Latex Allergies/Reactions N Blood Transfusion N Emergency room visit since last appointm ent. N Hypothyroidism N Lung Disease N Dermatologic Disorders N Defects or Inherited Disease N Breast [...] Psychiatric/Mental Health Condition N Organ Transplant N Fibromyalgia N Headaches N Schizophrenia N Dialysis N Kidney Disease N Heart Problems N Hospitalizations N Kidney or Bladder Problems N Thyroid Problems N GI Problems N Acne N [...] quadrivalent, preservative 9 completed Daphnie Valentin null, [employer] 02/21/2024 09:43:59 Hib, unspecified formulation 8 completed Daphnie Valentin null, [employer] 02/21/2024 09:43:59 Hib, unspecified formulation 7 completed Daphnie Valentin null, [employer] 02/21/2024 09:43:59 Hib, unspecified formulation 8 completed Daphnie Valentin null, [employer] 02/21/2024 09:43:59 Hib, unspecified formulation 7 completed Daphnie Valentin null, [employer] 02/21/2024 09:43:59 IPV 1 completed Daphnie Valentin null, [employer] 02/21/2024 09:43:59 IPV 7 completed Daphnie Valentin null, [employer] 02/21/2024 09:43:59 IPV 7 completed Daphnie Valentin null, [employer] 02/21/2024 09:43:59 MMR 8 completed Daphnie Valentin null, [employer] 02/21/2024 09:43:59 MMR 1 completed Daphnie Valentin null, [employer] 02/21/2024 09:43:59 MMR 8 completed Daphnie Valentin null, [employer] 02/21/2024 09:43:59 COVID-19, mRNA, LNP-S, PF, 100 mcg/0.5mL dose or 50 mcg/0.25mL dose 1 completed Daphnie Hanson null, [employer] 02/21/2024 09:43:59 pneumococcal conjugate PCV 7 1 completed Daphnie Hanson null, [employer] 02/21/2024 09:43:59 Tdap 9 completed Daphnie Valentin null, [employer] 02/21/2024 09:43:59 Tdap 7 completed Daphnie Valentin null, [employer] 02/21/2024 09:43:59 varicella 9 completed Daphniejohnny Hanson null, [employer] 02/21/2024 09:43:59 varicella 8 completed Daphnie Valentin null, [employer] 02/21/2024 09:43:59 polio, unspecified formulation 8 completed Daphnie Valentin null, [employer] 02/21/2024 09:43:59 Influenza, split virus, trivalent, preservative 7 completed Daphnie Valentin null, [employer] 02/21/2024 09:43:59 Hep B, adolescent or pediatric 7 completed Daphnie Valentin null, [employer] 02/21/2024 09:43:59 Hep B, adolescent or pediatric 7 completed Daphnie Valentin null, [employer] 02/21/2024 09:43:59 Hep B, adolescent or pediatric 8 completed Daphnie Valentin null, [employer] 02/21/2024 09:43:59 Hep A, adult 9 completed Daphnie Valentin null, [employer] 02/21/2024 09:43:59 Hep A, adult 8 completed Daphnie Valentin null, [employer] 02/21/2024 09:43:59 DTaP, unspecified formulation 8 completed Daphnie Valentin null, [employer] 02/21/2024 09:43:59 DTaP, unspecified formulation 1 completed Daphnie Valentin null, [employer] 02/21/2024 09:44:00 DTaP, unspecified formulation 7 completed Daphnie Valentin null, [employer] 02/21/2024 09:44:00 DTaP, unspecified formulation 8 completed Daphnie Valentin null, [employer] 02/21/2024 09:44:00 DTaP, unspecified formulation 7 completed Daphnie Hanson null, [employer] 02/21/2024 09:44:00 Influenza, split virus, quadrivalent, PF 0 completed Daphnie Hanson null, [employer] 02/21/2024 09:44:00 Past Encounters Encounter ID Performer Location Encounter Start Date Encounter Closed Date Diagnosis/Indication Diagnosis SNOMED-CT Code Diagnosis ICD10 Code Diagnosis IMO Codes Diagnosis Note [id number] Josselyn Vazquez APRN [address] [place] [id number] 02/21/2024 09:35:29 02/21/2024 11:30:10 Family history of breast cancer 869680427 Z80.3 Family his tory of malignant neoplasm of ovary 131341789 Z80.41 provided info on 's ovarian cancer screening program Screening for malignant neoplasm of cervix 595796069 Z12.4 Gynecologi c examination 62340416 Z01.419 Implantati on of subcutaneous contraceptive 336546841 Z30.46 [id number] Bev Dorman MD [address] [place] [id number] 03/01/2024 14:31:48 03/01/2024 16:09:14 Contraception care management 543880815 Z30.9 Health Concerns Section Related Observation LastModified by Organization Detai ls LastModified Time None Recorded Concern Status LastModified by Organization Details LastModified Time None Recorded Advance Directives Directive None Recorded Payers Insurance Date Sequence Insurance Name Policy Number Policy Hicks Covered Member ID Hicks Member ID Guarantor Name 03/22/2024 1 UNSPECIFIED REMIT PAYOR Katie Hodge 02/21/2024 1 *SELF PAY* Lavern Hodge 02/10/2025 1 [facility]ICAID H[facility]) Katie Hodge [id number] Katie Hodge Notes Date Note Type Note Provider Name and Address Organization Details Recorded Time 02/21/2024 text/html ROS as noted in the HPI Pt presents for annual [employer] exam. She reports concern for familial h/o [...] Mood is stable. Josselyn Vazquez APRN [address] [place], [address], [employer]. 02/21/2024 10:56:54 03/01/2024 text/html ROS as noted [...] panel lab work. Bev Dorman MD [address] [place], [address], [employer]. 03/01/2024 15:31:14 OBGyn Episode No OBEpisode recorded.
--- NOTE | 2025-03-10 13:00 | US_ITS ---
PROCEDURE: US OB BIOPHYSICAL PROFILE CLINICAL INDICATION: growth and position at 32wks COMPARISON: US US OB /MATERNAL DETAIL from 12/12/2024 US US OB BIOPHYSICAL PROFILE from 02/11/2025 FINDINGS: Transabdominal sonographic images of the uterus were obtained. From her established due date she is 32weeks 1day. The following parameters are obtained: Viable Fetus in the cephalic presentation with a posterior placenta grade 2. Average ultrasound age is 33weeks 5days Estimated weight 2,249g, 4 lb 15 oz The cervix measures 2.94 cm in length. Measurements: heart Rate = 130bpm BPD = 33weeks 5days, 82 percentile HC = 34weeks 2days, 70 percent AC = 34weeks 2days, 94 percent FL = 32weeks 4days, 47 percentile. HC/AC is 1.02 FL/BPD is 0.75 FL/AC is 0.21 86 percentile Amniotic fluid index: 11.79cm, MVP 3.94 cm. Qualitative AFV:2 Breathing movements: 2 Gross Body Movements: 2 Tone: 2 Biophysical profile score: 8 No obvious anomalies evident.Kidneys, stomach, bladder, three-vessel cord appear normal. IMPRESSION: 1. Viable fetus in the cephalic presentation with a posterior placenta grade 2. 2. The fluid is within normal limits with an amniotic fluid index 11.79 cm, MVP 3.94 cm. 3. Biophysical profile is 8/8 with good breathing movement and movement seen. 4. There has been good interval growth with the fetus currently 86th percentile. 5. There is acceleration of the abdominal circumference that is approximately 2 weeks ahead. 6. Limited anatomical scan appears normal. Dictated by: Srinivasa Mcleod MD 03/10/2025 13:57 Srinivasa Mcleod MD in [place] 03/10/2025 13:57
== END 2025-03-10 23:59 | disposition home or self-care (01) ==
LOC: RAD 12:41
PROVIDERS: PCP Nurse Practitioner Family; Visit Provider Obstetrics & Gynecology
DX: O10.913 Unspecified pre-existing hypertension complicating pregnancy, third trimester (principal); O99.213 Obesity complicating pregnancy, third trimester; E66.9 Obesity, unspecified; Z3A.32 32 weeks gestation of pregnancy
CPT/HCPCS: 76816; 76819

== ENCOUNTER 2025-03-21 12:46 | Outpatient (CLI) | payer MEDICAID, SELFPAY ==
[2025-03-21 13:04] LABS: Hematocrit 31.6 % (37.0-47.0); Hemoglobin 10.2 g/dL (12.2-16.2); Mean Corpuscular HGB Conc 32.3 g/dL (31.8-35.4); Mean Corpuscular Hemoglobin 29.0 pg (27.0-31.2); Mean Corpuscular Volume 89.8 fl (81-99); Platelet Count 223 K/mm3 (142-424); Red Blood Count 3.52 M/mm3 (4.20-5.40); White Blood Count 9.0 K/mm3 (4.8-10.8)
[2025-03-21 13:26] LABS: Alanine Aminotransferase 16 U/L (12-78); Albumin Level 3.2 g/dl (3.5-5.0); Albumin/Globulin Ratio 1.3 (1.1-1.8); Alkaline Phosphatase 177 U/L (38-126); Anion Gap 7.8 mEq/L (5-15); Aspartate Amino Transferase 24 U/L (14-36); Bilirubin,Total 0.3 mg/dl (0.2-1.3); Blood Urea Nitrogen 4 mg/dl (7-17); Calcium 8.7 mg/dl (8.4-10.2); Carbon Dioxide 23 mmol/L (22.0-30.0); Chloride 104 mmol/L (98-107); Creatinine,Serum 0.50 mg/dl (0.52-1.04); Estimated Glomerular Filt Rate 147 ml/min (>60); GFR (African American) 178 ML/MIN (>60); Globulin 2.5 g/dL (1.3-3.2); Glucose 110 mg/dl (74-100); Potassium 3.8 mmoL/L (3.5-5.1); Sodium 131 mmol/L (136-145); Total Protein,Serum 5.7 g/dl (6.3-8.2); Uric Acid 2.7 mg/dl (2.5-6.2)
--- NOTE | 2025-03-21 13:45 | US_ITS ---
PROCEDURE: US OB BIOPHYSICAL PROFILE CLINICAL INDICATION: CHTN COMPARISON: US US OB /MATERNAL DETAIL from 12/12/2024 US US OB BIOPHYSICAL PROFILE from 02/11/2025 US US OB BIOPHYSICAL PROFILE from 03/10/2025 FINDINGS: Transabdominal sonographic images of the uterus were obtained. From her established due date she is 33weeks 5days. The following parameters are obtained: Viable Fetus in the cephalic presentation with a posterior placenta grade 2. The cervix measures 2.84 cm in length. Measurements: heart Rate = 146bpm Amniotic fluid index: 9.74cm, MVP 4.05 cm Qualitative AFV:2 Breathing movements: 2 Gross Body Movements: 2 Tone: 2 Biophysical profile score: 8 No obvious anomalies evident.Kidneys, stomach, bladder, four-chamber heart, three-vessel cord appear normal. IMPRESSION: 1. Viable fetus in the cephalic presentation with a posterior placenta grade 2. 2. The fluid is within normal limits with an amniotic fluid index 9.74 cm, MVP 4.05 cm. 3. Biophysical profile is 8/8 with good breathing movement and movement seen. 4. Limited anatomical scan appears normal. Dictated by: Srinivasa Mcleod MD 03/22/2025 08:13 Srinivasa Mcleod MD in [place] 03/22/2025 08:13
[2025-03-21 16:18] LABS: RBC Morphology Normal; Total Cells Counted 100
== END 2025-03-21 23:59 | disposition home or self-care (01) ==
LOC: RAD 12:46
PROVIDERS: PCP Nurse Practitioner Family; Visit Provider Obstetrics & Gynecology
DX: O10.913 Unspecified pre-existing hypertension complicating pregnancy, third trimester (principal); Z3A.33 33 weeks gestation of pregnancy
CPT/HCPCS: 36415; 76819; 80053; 84550; 85007; 85014; 85018; 85048; 85049

== ENCOUNTER 2025-03-25 10:02 | Outpatient (CLI) | payer MEDICAID, SELFPAY ==
--- NOTE | 2025-03-25 10:12 | US_ITS ---
PROCEDURE: US OB BIOPHYSICAL PROFILE CLINICAL INDICATION: preeclampsia COMPARISON: US US OB /MATERNAL DETAIL from 12/12/2024 US US OB BIOPHYSICAL PROFILE from 02/11/2025 US US OB BIOPHYSICAL PROFILE from 03/10/2025 US US OB BIOPHYSICAL PROFILE from 03/21/2025 FINDINGS: Transabdominal sonographic images of the uterus were obtained. From her established due date she is 34weeks 2days. The following parameters are obtained: Viable Fetus in the cephalic presentation with a lateral placenta grade 2. Cervix measures 3.09 cm in length Measurements: heart Rate = 135bpm Amniotic fluid index: 10.53cm, MVP 6.19 cm Qualitative AFV:2 Breathing movements: 2 Gross Body Movements: 2 Tone: 2 Biophysical profile score: 8 No obvious anomalies evident.Kidneys, profile, stomach, bladder, four-chamber heart, three-vessel cord appear normal. IMPRESSION: 1. Viable fetus in the cephalic presentation with a lateral placenta grade 2. 2. The fluid is within normal limits with an amniotic fluid index 10.53 cm, MVP 6.19 cm. 3. Biophysical profile is 8/8 with good breathing movement and movement seen. 4. Limited anatomical scan appears normal. Dictated by: Srinivasa Mcleod MD 03/25/2025 14:00 Srinivasa Mcleod MD in [place] 03/25/2025 14:00
[2025-03-25 10:14] VITALS: BMI 37.5
[2025-03-25 10:15] VITALS: BP 125/81; PULSE 108; RESP 18; TEMP 36.8; O2SAT 96; BMI 37.5
[2025-03-25 10:31] LABS: Hematocrit 30.6 % (37.0-47.0); Hemoglobin 10.3 g/dL (12.2-16.2); Immature Granulocytes % 0.8 %; Mean Corpuscular HGB Conc 33.7 g/dL (31.8-35.4); Mean Corpuscular Hemoglobin 29.3 pg (27.0-31.2); Mean Corpuscular Volume 87.2 fl (81-99); Nucleated Red Blood Cells % 0 %; Platelet Count 216 K/mm3 (142-424); Red Blood Count 3.51 M/mm3 (4.20-5.40); Red Cell Distribution Width-SD 38.6 fL; White Blood Count 10.4 K/mm3 (4.8-10.8)
[2025-03-25] MEDS: ACETAMINOPHEN 500MG TAB 1000 MG PO (10:34)
[2025-03-25 10:52] VITALS: BP 125/79
[2025-03-25 10:59] LABS: Alanine Aminotransferase 18 U/L (12-78); Albumin Level 3.4 g/dl (3.5-5.0); Albumin/Globulin Ratio 1.2 (1.1-1.8); Alkaline Phosphatase 180 U/L (38-126); Anion Gap 7.9 mEq/L (5-15); Aspartate Amino Transferase 26 U/L (14-36); Bilirubin,Total 0.3 mg/dl (0.2-1.3); Blood Urea Nitrogen 6 mg/dl (7-17); Calcium 8.8 mg/dl (8.4-10.2); Carbon Dioxide 20 mmol/L (22.0-30.0); Chloride 106 mmol/L (98-107); Creatinine Clearance Estimated 246 mL/min (50-200); Creatinine,Serum 0.50 mg/dl (0.52-1.04); Estimated Glomerular Filt Rate 147 ml/min (>60); GFR (African American) 178 ML/MIN (>60); Globulin 2.9 g/dL (1.3-3.2); Glucose 97 mg/dl (74-100); Potassium 3.9 mmoL/L (3.5-5.1); Sodium 130 mmol/L (136-145); Total Protein,Serum 6.3 g/dl (6.3-8.2); Uric Acid 2.7 mg/dl (2.5-6.2)
[2025-03-25 11:20] LABS: Microscopic, Urine URINE MICROSCOPIC (MICROSCOPIC)
[2025-03-25 11:26] LABS: Bilirubin,Urine Negative (Negative); Color,Urine YELLOW (Yellow); Glucose,Urine (UA) Negative (Negative); Ketones,Urine Negative (Negative); Leukocyte Esterase,Urine Negative (Negative); PH,Urine 7.0 (5.0-8.5); Protein,Urine Negative (Negative); Specific Gravity, Urine 1.010 (1.005-1.030); Urobilinogen,Urine 0.2 EU/dl (0.2)
[2025-03-25 11:53] LABS: Bacteria,Urine Trace /lpf; WBC,Urine Occasional #/hpf (0-3)
== END 2025-03-25 12:08 | disposition home or self-care (01) ==
LOC: OBOUT 10:03 → OB 10:03
PROVIDERS: PCP Nurse Practitioner Family; Visit Provider Obstetrics & Gynecology
DX: O14.93 Unspecified pre-eclampsia, third trimester (principal); O99.891 Other specified diseases and conditions complicating pregnancy; R51.9 Headache, unspecified; R03.0 Elevated blood-pressure reading, without diagnosis of hypertension; Z3A.34 34 weeks gestation of pregnancy
CPT/HCPCS: 36415; 76819; 80053; 81001; 82570; 83615; 84156; 84550; 85025; 99213

== ENCOUNTER 2025-03-28 10:05 | Outpatient (CLI) | payer MEDICAID, SELFPAY ==
--- OUTSIDE RECORDS SUMMARY | 2025-03-28 10:09 | XMS_ITS | Data Portability ---
Author Organization [facility] [employer] [facility] Address [address] [place] [address] Assessment No assessment recorded. Plan of Treatment Reminders Order Date Submit Date Provider Last Modified By Organization Details Last Modified Time Details Appointments None recorded. Lab cancer related large scale gene targeted mutation analysis, blood or tissue 2023 [email or web address] [facility], [address] [place] [address], [address], 4 09:59:54 pap, IG + reflex HPV 2023 024 [place] [facility]), [address] [place], [address], 4 15:08:22 Referral None recorded. Procedures None recorded. Surgeries None recorded. Imaging None recorded. Medication Orders Vitamin 27 mg iron-0.8 mg tablet 2023 024 [facility], [address], [place], [id number], 4 15:32:14 Patient TargetsNo targets recorded. Patient Instructions Encounter Date Encounter Id Patient Instructions Last Modified By Organization Details Last Modified Time 03/01/2024 [id number] learning about control [email or web address] Not available 03/01/2024 15:23:57 surgical trays* [email or web address] Not availab le 04/10/2024 07:21:29 Reason for Referral None Reported. Results Created Date Observation Date Name Description Value Unit Range Abnormal Flag Note LastModifiedBy Organization Detail LastModifiedTime 02/21/2002/22/2024 IGP,A PTIMA HPV,A GE GDLN age gdln acog testing Not Available [facility] ([facility]) [address] [place], [address], 02/27/2024 15:08:22 02/21/2002/27/2024 IGP,A PTIMA HPV,A GE GDLN diagnosis: Abelardo perez NEGAT KUMAR FOR INTRA EPITH ELIAL LESIO N OR JENNIFER NI . THIS SPECI MEN WAS RESCR EENED PART OF OUR QUALI TY CONTR OL PROGR AM. Not Available [facility] ([facility]) [address] [place], [address], 02/27/2024 15:08:22 02/21/2002/27/2024 IGP,A PTIMA HPV,A GE GDLN specimen adequacy: Abelardo perez Satis facto ry for evalu ation . Endoc ervic al and/o r squam ous metap lasti c cells (endo cervi steven compo nent) are prese nt. Not Available [facility] ([facility]) [address] [place], [address], 02/27/2024 15:08:22 02/21/2002/27/2024 IGP,A PTIMA HPV,A GE GDLN clinician provided ICD10: Abelardo perez Z12.4 Z80.4 1 Not Available [facility] ([facility]) [address] [place], [address], 02/27/2024 15:08:22 02/21/2002/27/2024 IGP,A PTIMA HPV,A GE GDLN performed by: Lashawn Grider (ASCP ) Not Available [facility] ([facility]) [address] [place], [address], 02/27/2024 15:08:22 02/21/2002/27/2024 IGP,A PTIMA HPV,A GE GDLN QC reviewed by: Abelardo Fierro r, Super visor y Cytot echno marc t (ASCP ) Not Available [facility] ([facility]) [address] [place], [address], 02/27/2024 15:08:22 02/21/20 24 02/27/2024 IGP,A PTIMA HPV,A GE GDLN . . Not Available [facility] ([facility]) [address] [facility], [place], [address], 02/27/2024 15:08:22 02/21/2002/27/2024 IGP,A PTIMA HPV,A GE [...] ts do occur . Not Available [facility] ([facility]) [address] [facility], [place], [address], 02/27/2024 15:08:22 02/21/2002/27/2024 IGP,A PTIMA HPV,A GE GDLN test methodology: Abelardo perez This liqui d based ThinP rep(R ) pap test was scree makeda with the use of an image guide d syste m. Not Available [facility] ([facility]) [address] [place], [address], 02/27/2024 15:08:22 02/21/20 24 02/27/2024 IGP,A PTIMA HPV,A GE GDLN . Abelardo perez The HPV DNA refle x crite rajesh were not met with this speci men resul t there fore, no HPV testi ng was perfo rmed. Not Available [facility] ([facility]) [address] [facility], [place], [address], 02/27/2024 15:08:22 02/21/20 24 04/19/2024 VISTA SEQ HERED . CANCE R PANEL preauthoriza tion Commen t Prior autho rizat ion revie w compl ete Not Available [facility] ([facility]) [address] [facility], [place], [address], 04/25/2024 14:07:33 02/21/20 24 04/25/2024 VISTA SEQ HERED . CANCE R PANEL specimen type Whole Blood Not Available [facility] ([facility]) [address] [facility], [place], [address], 04/25/2024 14:07:33 02/21/20 24 04/25/2024 VISTA SEQ HERED . CANCE R PANEL result summary Negati ve No clini jaguar signi fican t seque nce or copy numbe r varia nts were detec cristiane. No patho genic or varia nts of [facility] clini steven signi fican ce were detec cristiane by full gene seque ncing or delet ion/d uplic ation enrique sis for any of the genes teste d in this panel . Not Available [facility] ([facility]) [address] [facility], [place], [address], 04/25/2024 14:07:33 02/21/20 24 04/25/2024 VISTA SEQ HERED . CANCE R PANEL result and interpretati on INVENTORY TAKER Not Available [facility] ([facility]) [address] [facility], [place], [address], 04/25/2024 14:07:33 02/21/20 24 04/25/2024 VISTA SEQ HERED . CANCE R PANEL recommendati ons Commen t [facility] couns dilcia is recom cookie d to discu ss the clini steven impli catio ns of this resul t. Ken ic couns spencer are avail able for healt h care provi ders to discu ss this resul t furth er at [phone] SHANNAN. To refer your patie nt for [...] ectal , [place]i on ). [place] [address] 2 MLH1/ MSH2/ MSH6/ PMS2/ EPCAM Somat ic Tumor Misma tch Repai r Seque ncing and Delet ion/D uplic ation Test is avail able to perfo rm this enrique sis. For more infor mary robles conta ct [phone] SHANNAN to speak with our labor atory ken ic coord inato rs. LIST OF ALL GENES IN PANEL APC MSH2 TP53 BRCA1 CHEK2 CDKN2 A PRKAR 1A DASHAWN MSH6 CDH1 BRCA2 PALB2 RAD51 C RAD51 D NBN PMS2 MLH1 BARD1 SMAD4 BMPR1 A FAM17 5A CDK4 PTEN STK11 BRIP1 EPCAM MUTYH (bial lelic ) Not Available [facility] ([facility]) [address] [facility], [place], [address], 04/25/2024 14:07:33 02/21/20 24 04/25/2024 VISTA SEQ [...] be used [facility] clini [facility]even [facility] . Likel y patho genic varia nts are stron gly sugge stive of belinda l gene funct ion being negat ively affec cristiane, and when combi makeda with other evide nce of cance r, may be used in clini steven decis ion [facility] . Varia nts of uncer tain signi [...] be used in clini steven decis ion [facility] but addit ional monit oring may be [...] able upon reque st. Not Available [facility] ([facility]) [address], [place], [address], 04/25/2024 14:07:33 02/21/20 24 04/25/2024 VISTA SEQ [...] istra tion (FDA) . Not Available [facility] ([facility]) [address] [facility], [place], [address], 04/25/2024 14:07:33 02/21/20 24 04/25/2024 VISTA SEQ [...] Mar;1 6(11) :830- 7. Not Available [facility] ([facility]) [address] [facility], [place], [address], 04/25/2024 14:07:33 02/21/20 24 04/25/2024 VISTA SEQ HERED . CANCE R PANEL director review Commen t Relea sed By: CARLA ORELLANA, PhD, Direc tor PERFO RMING LABOR ATORI ES TG [facility] [address] [facility] , [place] [address] , Labor atory Direc tor: Francisco Juárez M.D., Ph.D. Techn ical compo nent, enrique sis, perfo rmed at [address] [place], [address] , Francisco Juárez MD, PhD. Dorinda guy compo nent, perfo rmed at [facility] at[facility], [address], [place], [address] , Labor atory Direc tor Carla orellana, PhD, FACMG . For marvini wade, the physi christal banuelos conta ct the lab at . Not Available [facility] ([facility]) [address] [place], [address], 04/25/2024 14:07:33 02/21/20 24 04/25/2024 VISTA SEQ HERED . CANCE R PANEL pdf . Not Available [facility] ([facility]) [address] [place], [address], 04/25/2024 14:07:33 Result Notes None recorded. Procedures Surgical History Date Name Laterality Status Provider Name and Address Organization Details Recorded Time 4 Control Implant Removal completed Bev Dorman MD [address] [place] [address], [phone], [employer] 03/01/2024 15:23:43 4 IUD Insertion completed Josselyn Vazquez APRN [address] [place] [address], [phone], [employer] 02/21/2024 10:43:32 4 Control Implant Insertion completed Josselyn Vazquez APRN [address] [place] [address], [phone], [employer] 02/21/2024 10:43:41 delivery completed Daphnie Hanson [employer] 02/21/2024 09:48:32 procedure on labia completed Daphnie Hanson [employer] 02/21/2024 09:49:07 Imaging Results None recorded. Procedure Notes None recorded. Medical Equipment None Reported. Allergies Allergen ID Allergen Name Allergen Category Reaction Reaction Severity Criticality Documentation Date Start Date Code Code System Note Provider Name and Address Organization Details Recorded Time 00598 amoxicill in medicatio n Not available Not available Not available 02/21/2024 723 RxNorm [facility] 4 09:45:59 Medications Name Sig Start Date [...] (BMI) Body weight Heart rate Oxygen saturation Systolic And Diastolic Provider Name and Address Organization Details Last Updated DateTime 157.48 cm 33 kg/m2 53996.0 6 g 91 /min 100 % 118/84 mm[Hg] Daphnie Hanson [employer]. 09:45:31 Date Recorded Body height Body mass index (BMI) Body weight Heart rate Oxygen saturation Systolic And Diastolic Provider Name and Address Organization Details Last Updated DateTime 157.48 cm 32.9 kg/m2 76837.6 3 g 85 /min 100 % 131/89 mm[Hg] Martin Ocampo [employer]. 14:58:37 Social History Question Answer Notes LastModified by Organizat ion Details LastModified Time Tobacco Smoking Status Never Smoker Daphnie reyes [employer]. 02/21/2024 09:48:03 If You Are , What Was Your Level Of Alcohol Consumption Prior To ? None [email or web address] Information not available 02/21/2024 What Is Your Level Of Caffeine Consumption? Moderate [email or web address] Information not available 02/21/2024 In The 14 Days Before Symptom Onset, Have You Had Close Contact With A Laboratory-confir med COVID-19 While That Case Was Ill? No Information not available 03/01/2024 Have You Been To An Area Known To Be High Risk For COVID-19? No Information not available 03/01/2024 Which Illicit Or Recreational Drugs Have You Used? [place] [email or web address] Information not available 02/21/2024 What Was The Date Of Your Most Recent Tobacco Screening? 03/01/2024 Information not available 03/01/2024 Has Tobacco Cessation Counseling Been Provided? Yes [email or web address] Information not available 02/21/2024 On What Date Was Tobacco Cessation Counseling Provided? 03/01/2024 Information not available 03/01/2024 Have You Recently Traveled Abroad? No Information not available 03/01/2024 Have You Used IV Drugs? No [email or web address] Information not available 02/21/2024 Sex: Female Functional Status Question Answer Note LastModified by Organizat ion Details LastModified Time Do you use any illicit or recreational drugs? Yes [email or web address] Information not available 02/21/2024 Do you or have you ever used any other forms of tobacco or nicotine? Yes Information not available 02/21/2024 What is your level of alcohol consumption? None [email or web address] Information not available 02/21/2024 Do you or have you ever used smokeless tobacco? Never used smokeless tobacco [email or web address] Information not available 02/21/2024 Do you or have you ever used e-cigarettes or vape? Current user of electronic cigarettes [email or web address] Information not available 02/21/2024 Mental Status None [...] Neurologic/Epilepsy N Endometriosis N High Cholesterol N Organ Transplant N Psychiatric/Mental Health Condition N Fibromyalgia N Schizophrenia N Dialysis N Headaches N Kidney Disease N Heart [...] quadrivalent, preservative 9 completed Daphnie Valentin null, [employer] 02/21/2024 09:43:59 Hib, unspecified formulation 8 completed Daphnie Valentin null, [employer] 02/21/2024 09:43:59 Hib, unspecified formulation 7 completed Daphnie Valentin null, [employer] 02/21/2024 09:43:59 Hib, unspecified formulation 8 completed Daphnie Valentin null, [employer] 02/21/2024 09:43:59 Hib, unspecified formulation 7 completed Daphnie Valentin null, [employer] 02/21/2024 09:43:59 IPV 1 completed Daphnie Valentin null, [employer] 02/21/2024 09:43:59 IPV 7 completed Daphnie Valentin null, [employer] 02/21/2024 09:43:59 IPV 7 completed Daphnie Valentin null, [employer] 02/21/2024 09:43:59 MMR 8 completed Daphnie Valentin null, [employer] 02/21/2024 09:43:59 MMR 1 completed Daphnie Valentin null, [employer] 02/21/2024 09:43:59 MMR 8 completed Daphnie Valentin null, [employer] 02/21/2024 09:43:59 COVID-19, mRNA, LNP-S, PF, 100 mcg/0.5mL dose or 50 mcg/0.25mL dose 1 completed Daphnie Valentin null, [employer] 02/21/2024 09:43:59 pneumococcal conjugate PCV 7 1 completed Daphnie Hanson null, [employer] 02/21/2024 09:43:59 Tdap 9 completed Daphnie Hanson null, [employer] 02/21/2024 09:43:59 Tdap 7 completed Daphnie Hanson null, [employer] 02/21/2024 09:43:59 varicella 9 completed Daphniejohnny Hanson null, [employer] 02/21/2024 09:43:59 varicella 8 completed Daphnie Hanson null, [employer] 02/21/2024 09:43:59 polio, unspecified formulation 8 completed Daphnie Valentin null, [employer] 02/21/2024 09:43:59 Influenza, split virus, trivalent, preservative 7 completed Daphnie Hanson null, [employer] 02/21/2024 09:43:59 Hep B, adolescent or pediatric 7 completed Daphnie Valentin null, [employer] 02/21/2024 09:43:59 Hep B, adolescent or pediatric 7 completed Daphnie Valentin null, [employer] 02/21/2024 09:43:59 Hep B, adolescent or pediatric 8 completed Daphnie Valentin null, [employer] 02/21/2024 09:43:59 Hep A, adult 9 completed Daphniejohnny Hanson null, [employer] 02/21/2024 09:43:59 Hep A, adult 8 completed Daphnie Valentin null, [employer] 02/21/2024 09:43:59 DTaP, unspecified formulation 8 completed Daphnie Hanson null, [employer] 02/21/2024 09:43:59 DTaP, unspecified formulation 1 completed Daphnie Hanson null, [employer] 02/21/2024 09:44:00 DTaP, unspecified formulation 7 completed Daphnie Hanson null, [employer] 02/21/2024 09:44:00 DTaP, unspecified formulation 8 completed Daphnie Hanson null, [employer] 02/21/2024 09:44:00 DTaP, unspecified formulation 7 completed Daphnie Hanson null, [employer] 02/21/2024 09:44:00 Influenza, split virus, quadrivalent, PF 0 completed Daphnie Hanson null, [employer]. 02/21/2024 09:44:00 Past Encounters Encounter ID Performer Location Encounter Start Date Encounter Closed Date Diagnosis/Indication Diagnosis SNOMED-CT Code Diagnosis ICD10 Code Diagnosis IMO Codes Diagnosis Note [id number] Josselyn Vazquez APRN [facility] [address] [id number] 02/21/2024 09:35:29 02/21/2024 11:30:10 Family history of breast cancer 573173877 Z80.3 Family his tory of malignant neoplasm of ovary 061120434 Z80.41 provided info on [place] ovarian cancer screening program Screening for malignant neoplasm of cervix 808344144 Z12.4 Gynecologi c examination 52988989 Z01.419 Implantati on of subcutaneous contraceptive 801202108 Z30.46 [id number] Bev oDrman MD [facility] [address] [id number] 03/01/2024 14:31:48 03/01/2024 16:09:14 Contraception care management 397723363 Z30.9 Health Concerns Section Related Observation LastModified by Organization Detai ls LastModified Time None Recorded Concern Status LastModified by Organization Details LastModified Time None Recorded Advance Directives Directive None Recorded Payers Insurance Date Sequence Insurance Name Policy Number Policy Hicks Covered Member ID Hicks Member ID Guarantor Name 03/22/2024 1 UNSPECIFIED REMIT PAYOR Katie Hodge 02/21/2024 1 *SELF PAY* Lavern Hodge 02/10/2025 1 [facility] (MEDICAID HMO) Katie Hodge [id number] Katie Hodge Notes Date Note Type Note Provider Name and Address Organization Details Recorded Time 02/21/2024 text/html ROS as noted in the HPI Pt presents for annual [employer] exam. She reports concern for familial h/o [...] Mood is stable. Josselyn Vazquez APRN [address] [place], [address], [employer] 02/21/2024 10:56:54 03/01/2024 text/html ROS as noted [...] panel lab work. Bev Dorman MD [address] [place], [address], [employer] 03/01/2024 15:31:14 OBGyn Episode No OBEpisode recorded.
[2025-03-28 10:23] VITALS: BMI 37.5
[2025-03-28 10:28] VITALS: BP 113/85; PULSE 93; RESP 18; TEMP 36.8; BMI 37.7
[2025-03-28 10:40] LABS: Fetal Membrane Rupture (Rapid) Negative (Negative)
== END 2025-03-28 11:06 | disposition home or self-care (01) ==
LOC: OBOUT 10:06 → OB 10:08
PROVIDERS: PCP Nurse Practitioner Family; Visit Provider Nurse Practitioner Obstetrics & Gynecology
DX: O42.913 Preterm premature rupture of membranes, unspecified as to length of time between rupture and onset of labor, third trimester (principal); Z3A.34 34 weeks gestation of pregnancy
CPT/HCPCS: 84112; 99212

== ENCOUNTER 2025-04-04 12:07 | Outpatient (CLI) | payer MEDICAID, SELFPAY | END 2025-04-04 23:59 | disposition home or self-care (01) | PROVIDERS: PCP Nurse Practitioner Family; Visit Provider Obstetrics & Gynecology | DX: Z34.83 Encounter for supervision of other normal pregnancy, third trimester (principal) | CPT/HCPCS: 86403 ==

== ENCOUNTER 2025-04-04 13:27 | Outpatient (CLI) | payer MEDICAID, SELFPAY ==
--- NOTE | 2025-04-04 13:45 | US_ITS ---
PROCEDURE: US OB BIOPHYSICAL PROFILE CLINICAL INDICATION: CHTN COMPARISON: US US OB /MATERNAL DETAIL from 12/12/2024 US US OB BIOPHYSICAL PROFILE from 02/11/2025 US US OB BIOPHYSICAL PROFILE from 03/10/2025 US US OB BIOPHYSICAL PROFILE from 03/21/2025 US US OB BIOPHYSICAL PROFILE from 03/25/2025 FINDINGS: Transabdominal sonographic images of the uterus were obtained. From her established due date she is 35weeks 5days. The following parameters are obtained: Viable Fetus in the cephalic presentation with a lateral posterior placenta grade 2. Measurements: heart Rate = 140bpm Amniotic fluid index: 9.85cm, MVP 3.08 cm Qualitative AFV:2 Breathing movements: 2 Gross Body Movements: 2 Tone: 2 Biophysical profile score: 8 No obvious anomalies evident.Kidneys, stomach, bladder, four-chamber heart, three-vessel cord appear normal. IMPRESSION: 1. Viable fetus in the cephalic presentation with a lateral posterior placenta grade 2. 2. The fluid is within normal limits with an amniotic fluid index 9.85 cm, MVP 3.08 cm. 3. Biophysical profile is 8/8 with good breathing movement and movement seen. 4. Limited anatomical scan appears normal. Dictated by: Srinivasa Mcleod MD 04/05/2025 06:55 Srinivasa Mcleod MD in [place] 04/05/2025 06:55
== END 2025-04-04 23:59 | disposition home or self-care (01) ==
LOC: RAD 13:27
PROVIDERS: PCP Nurse Practitioner Family; Visit Provider Obstetrics & Gynecology
DX: O10.913 Unspecified pre-existing hypertension complicating pregnancy, third trimester (principal); Z3A.35 35 weeks gestation of pregnancy
CPT/HCPCS: 76819

== ENCOUNTER 2025-04-08 08:45 | Outpatient (CLI) | payer MEDICAID, SELFPAY ==
--- NOTE | 2025-04-08 09:00 | US_ITS ---
PROCEDURE: US OB FOLLOW UP CLINICAL INDICATION: growth and position COMPARISON: US US OB /MATERNAL DETAIL from 12/12/2024 US US OB BIOPHYSICAL PROFILE from 02/11/2025 US US OB BIOPHYSICAL PROFILE from 03/10/2025 US US OB BIOPHYSICAL PROFILE from 03/21/2025 US US OB BIOPHYSICAL PROFILE from 03/25/2025 US US OB BIOPHYSICAL PROFILE from 04/04/2025 FINDINGS: Transabdominal sonographic images of the pelvis were obtained. The following parameters are obtained: From her established due date she is 36weeks 2days Viable fetus in the cephalic presentation with a lateral posterior placenta grade 2. The cervix measures 2.92 cm in length. heart rate: 146bpm bpm. BPD: 38weeks 0 days, 93 percentile HC: 38weeks 6days, 81 percentile AC: 38weeks 4days, 98 percentile FL: 36weeks 2days, 45 percentile HC/AC: 0.98 FL/BPD: 0.76 FL/AC: 0.2 Growth percentile: 91 Amniotic fluid index: 8.52cm, MVP 4.01 cm. No obvious anomalies evident. Stomach, bladder, three-vessel cord, four chamber heart appear normal. IMPRESSION: 1. Viable fetus in the cephalic presentation with a lateral posterior placenta grade 2. 2. The fluid is within normal limits with an amniotic fluid index 8.52 cm, MVP 4.01 cm. 3. The there has been good interval growth with the fetus currently 91st percentile. The abdominal circumference continues to be 2 weeks ahead. 4. Limited anatomical scan appears normal. Dictated by: Srinivasa Mcleod MD 04/08/2025 09:47 Srinivasa Mcleod MD in [place] 04/08/2025 09:47
== END 2025-04-08 23:59 | disposition home or self-care (01) ==
LOC: RAD 08:46
PROVIDERS: PCP Nurse Practitioner Family; Visit Provider Obstetrics & Gynecology
DX: O10.913 Unspecified pre-existing hypertension complicating pregnancy, third trimester (principal); O99.213 Obesity complicating pregnancy, third trimester; E66.9 Obesity, unspecified; Z3A.36 36 weeks gestation of pregnancy
CPT/HCPCS: 76816

== ENCOUNTER 2025-04-08 10:27 | Outpatient (CLI) | payer MEDICAID, SELFPAY ==
[2025-04-08 08:43] VITALS: BMI 37.8
[2025-04-08 11:20] VITALS: BP 129/80; PULSE 93; RESP 18; TEMP 36.8; O2SAT 100; BMI 38.4
[2025-04-08 11:33] LABS: Alanine Aminotransferase 15 U/L (12-78); Albumin Level 3.4 g/dl (3.5-5.0); Albumin/Globulin Ratio 1.1 (1.1-1.8); Alkaline Phosphatase 184 U/L (38-126); Anion Gap 12.1 mEq/L (5-15); Aspartate Amino Transferase 24 U/L (14-36); Bilirubin,Total 0.3 mg/dl (0.2-1.3); Blood Urea Nitrogen 5 mg/dl (7-17); Calcium 9.1 mg/dl (8.4-10.2); Carbon Dioxide 21 mmol/L (22.0-30.0); Chloride 107 mmol/L (98-107); Creatinine Clearance Estimated 310 mL/min (50-200); Creatinine,Serum 0.40 mg/dl (0.52-1.04); Estimated Glomerular Filt Rate 190 ml/min (>60); GFR (African American) 230 ML/MIN (>60); Globulin 3.1 g/dL (1.3-3.2); Glucose 82 mg/dl (74-100); Potassium 4.1 mmoL/L (3.5-5.1); Sodium 136 mmol/L (136-145); Total Protein,Serum 6.5 g/dl (6.3-8.2)
[2025-04-08 11:37] LABS: Hematocrit 32.6 % (37.0-47.0); Hemoglobin 10.4 g/dL (12.2-16.2); Immature Granulocytes % 0.8 %; Mean Corpuscular HGB Conc 31.9 g/dL (31.8-35.4); Mean Corpuscular Hemoglobin 28.4 pg (27.0-31.2); Mean Corpuscular Volume 89.1 fl (81-99); Nucleated Red Blood Cells % 0 %; Platelet Count 219 K/mm3 (142-424); Red Blood Count 3.66 M/mm3 (4.20-5.40); Red Cell Distribution Width-SD 42.8 fL; White Blood Count 9.5 K/mm3 (4.8-10.8)
== END 2025-04-08 11:45 | disposition home or self-care (01) ==
LOC: PREOP 11:08 → OB 11:09
PROVIDERS: PCP Nurse Practitioner Family; Visit Provider Obstetrics & Gynecology
DX: Z01.812 Encounter for preprocedural laboratory examination (principal)
CPT/HCPCS: 80053; 85025; 99212

== ENCOUNTER 2025-04-15 05:27 | Inpatient (IN) | payer MEDICAID, SELFPAY ==
[2025-04-15] VITALS (10 sets, daily range): BP systolic 111–166; BP diastolic 69–86; PULSE 76–103; RESP 16–20; TEMP 36.1–36.8; O2SAT 97–100; BMI 38.4
--- OUTSIDE RECORDS SUMMARY | 2025-04-15 05:31 | XMS_ITS | Data Portability ---
Author Organization [facility] [email or web address] [facility] Address [address] [place] [address] Assessment No assessment recorded. Plan of Treatment Reminders Order Date Submit Date Provider Last Modified By Organization Details Last Modified Time Details Appointments None recorded. Lab cancer related large scale gene targeted mutation analysis, blood or tissue [email or web address] [facility], [address] [place] [address], [address], 4 09:59:54 pap, IG + reflex HPV 2023 024 [place] [facility]), [address] [place], [address], 4 15:08:22 Referral None recorded. Procedures None recorded. Surgeries None recorded. Imaging None recorded. Medication Orders Vitamin 27 mg iron-0.8 mg tablet 2023 024 [facility], [address], [place], [id number], 4 15:32:14 Patient TargetsNo targets recorded. Patient Instructions Encounter Date Encounter Id Patient Instructions Last Modified By Organization Details Last Modified Time 03/01/2024 [id number] learning about control [email or web address] Not available 03/01/2024 15:23:57 surgical trays* [email or web address] Not availab le 04/10/2024 07:21:29 Reason for Referral None Reported. Results Created Date Observation Date Name Description Value Unit Range Abnormal Flag Note LastModifiedBy Organization Detail LastModifiedTime 02/21/2002/22/2024 IGP,A PTIMA HPV,A GE GDLN age gdln acog testing Not Available [facility] ([facility]) [address] [place], [address], 02/27/2024 15:08:22 02/21/2002/27/2024 IGP,A PTIMA HPV,A GE GDLN diagnosis: Abelardo perez NEGAT KUMAR FOR INTRA EPITH ELIAL LESIO N OR JENNIFER NI . THIS SPECI MEN WAS RESCR EENED PART OF OUR QUALI TY CONTR OL PROGR AM. Not Available [facility] ([facility]) [address] [place], [address], 02/27/2024 15:08:22 02/21/2002/27/2024 IGP,A PTIMA HPV,A GE GDLN specimen adequacy: Abelardo perez Satis facto ry for evalu ation . Endoc ervic al and/o r squam ous metap lasti c cells (endo cervi steven compo nent) are prese nt. Not Available [facility] ([facility]) [address] [place], [address], 02/27/2024 15:08:22 02/21/2002/27/2024 IGP,A PTIMA HPV,A GE GDLN clinician provided ICD10: Abelardo perez Z12.4 Z80.4 1 Not Available [facility] ([facility]) [address] [place], [address], 02/27/2024 15:08:22 02/21/2002/27/2024 IGP,A PTIMA HPV,A GE GDLN performed by: Lashawn Grider (ASCP ) Not Available [facility] ([facility]) [address] [place], [address], 02/27/2024 15:08:22 02/21/2002/27/2024 IGP,A PTIMA HPV,A GE GDLN QC reviewed by: Abelardo Fierro r, Super visor y Cytot echno marc t (ASCP ) Not Available [facility] ([facility]) [address] [place], [address], 02/27/2024 15:08:22 02/21/20 24 02/27/2024 IGP,A PTIMA HPV,A GE GDLN . . Not Available [facility] ([facility]) [address] [facility], [place], [address], 02/27/2024 15:08:22 02/21/2002/27/2024 IGP,A PTIMA HPV,A GE [...] ts do occur . Not Available [facility] ([facility]) [address] [facility], [place], [address], 02/27/2024 15:08:22 02/21/2002/27/2024 IGP,A PTIMA HPV,A GE GDLN test methodology: Abelardo perez This liqui d based ThinP rep(R ) pap test was scree makeda with the use of an image guide d syste m. Not Available [facility] ([facility]) [address] [place], [address], 02/27/2024 15:08:22 02/21/20 24 02/27/2024 IGP,A PTIMA HPV,A GE GDLN . Abelardo perez The HPV DNA refle x crite rajesh were not met with this speci men resul t there fore, no HPV testi ng was perfo rmed. Not Available [facility] ([facility]) [address] [facility], [place], [address], 02/27/2024 15:08:22 02/21/20 24 04/19/2024 VISTA SEQ HERED . CANCE R PANEL preauthoriza tion Commen t Prior autho rizat ion revie w compl ete Not Available [facility] ([facility]) [address] [facility], [place], [address], 04/25/2024 14:07:33 02/21/20 24 04/25/2024 VISTA SEQ HERED . CANCE R PANEL specimen type Whole Blood Not Available [facility] ([facility]) [address] [facility], [place], [address], 04/25/2024 14:07:33 02/21/20 24 04/25/2024 VISTA SEQ HERED . CANCE R PANEL result summary Negati ve No clini jaguar signi fican t seque nce or copy numbe r varia nts were detec cristiane. No patho genic or varia nts of formerly [facility] clini steven signi fican ce were detec cristiane by full gene seque ncing or delet ion/d uplic ation enrique sis for any of the genes teste d in this panel . Not Available [facility] ([facility]) [address] [facility], [place], [address], 04/25/2024 14:07:33 02/21/20 24 04/25/2024 VISTA SEQ HERED . CANCE R PANEL result and interpretati on MAINSTREAMING FACILITATOR Not Available [facility] ([facility]) [address] [facility], [place], [address], 04/25/2024 14:07:33 02/21/20 24 04/25/2024 VISTA SEQ HERED . CANCE R PANEL recommendati ons Commen t Ken ic couns dlicia is recom cookie d to discu ss the clini steven impli catio ns of this resul t. Ken ic couns spencer are avail able for healt h care provi ders to discu ss this resul t furth er at [phone] SHANNAN. To refer your patie nt for [...] ectal , Versi [place] ). [place] [address] 2 MLH1/ MSH2/ MSH6/ PMS2/ EPCAM Somat ic Tumor Misma tch Repai r Seque ncing and Delet ion/D uplic ation Test is avail able to perfo rm this enrique sis. For more infor mary robles conta ct [phone] SHANNAN to speak with our labor atory ken ic coord inato rs. LIST OF ALL GENES IN PANEL APC MSH2 TP53 BRCA1 CHEK2 CDKN2 A PRKAR 1A DASHAWN MSH6 CDH1 BRCA2 PALB2 RAD51 C RAD51 D NBN PMS2 MLH1 BARD1 SMAD4 BMPR1 A FAM17 5A CDK4 PTEN STK11 BRIP1 EPCAM MUTYH (bial lelic ) Not Available [facility] ([facility]) [address] [facility], [place], [address], 04/25/2024 14:07:33 02/21/20 24 04/25/2024 VISTA SEQ [...] be used in clini steven decis ion [facility] . Likel y patho genic varia nts are stron gly sugge stive of belinda l gene funct ion being negat ively affec cristiane, and when combi makeda with other evide nce of cance r, may be used in clini steven decis ion [facility] . Varia nts of uncer tain signi [...] be used in clini steven decis ion [facility] but addit ional monit oring may be [...] able upon reque st. Not Available [facility] ([facility]) [address], [place], [address], 04/25/2024 14:07:33 02/21/20 24 04/25/2024 VISTA SEQ [...] istra tion (FDA) . Not Available [facility] ([facility]) [address] [facility], [place], [address], 04/25/2024 14:07:33 02/21/20 24 04/25/2024 VISTA SEQ [...] Mar;1 6(11) :830- 7. Not Available [facility] ([facility]) [address] [facility], [place], [address], 04/25/2024 14:07:33 02/21/20 24 04/25/2024 VISTA SEQ HERED . CANCE R PANEL director review Commen t Relea sed By: CARLA ORELLANA, PhD, Direc tor PERFO RMING LABOR ATORI ES TG [facility] [address] [facility] , [place] [address] , Labor atory Direc tor: Francisco Juárez M.D., Ph.D. Techn ical compo nent, enrique sis, perfo rmed at [address] [place], [address] , Francisco Juárez MD, PhD. Dorinda guy compo nent, perfo rmed at [facility] at[facility] [employer] [facility], [address], [place], [address] , Labor atory Direc tor Carla orellana, PhD, FACMG . For marvini wade, the physi christal banuelos conta ct the lab at . Not Available [facility] ([facility]) [address] [place], [address], 04/25/2024 14:07:33 02/21/20 24 04/25/2024 VISTA SEQ HERED . CANCE R PANEL pdf . Not Available [facility] ([facility]) [address] [place], [address], 04/25/2024 14:07:33 Result Notes None recorded. Procedures Surgical History Date Name Laterality Status Provider Name and Address Organization Details Recorded Time 4 Control Implant Removal completed Bev Dorman MD [address] [place] [address], [address], [employer] 03/01/2024 15:23:43 4 IUD Insertion completed Josselyn Vazquez APRN [address] [place] [address], [address], [employer] 02/21/2024 10:43:32 4 Control Implant Insertion completed Josselyn Vazquez APRN [address] [place] [address], [address], [employer] 02/21/2024 10:43:41 delivery completed Daphnie Hanson [employer] 02/21/2024 09:48:32 procedure on labia completed Daphnie Hanson [employer] 02/21/2024 09:49:07 Imaging Results None recorded. Procedure Notes None recorded. Medical Equipment None Reported. Allergies Allergen ID Allergen Name Allergen Category Reaction Reaction Severity Criticality Documentation Date Start Date Code Code System Note Provider Name and Address Organization Details Recorded Time 43301 amoxicill in medicatio n Not available Not available Not available 02/21/2024 723 RxNorm [facility]yes [facility] 4 09:45:59 Medications Name Sig Start [...] Available Vitamin 27 mg iron-0.8 mg tablet TAKE ONE TABLET BY MOUTH ONCE DAILY active Not Available Not Available No t [...] Last Updated DateTime 157.48 cm 33 kg/m2 98838.0 6 g 91 /min 100 % 118/84 mm[Hg] Daphnie Hanson [employer] 09:45:31 Date Recorded Body height Body mass index (BMI) Body weight Heart rate Oxygen saturation Systolic And Diastolic Provider Name and Address Organization Details Last Updated DateTime 157.48 cm 32.9 kg/m2 95233.6 3 g 85 /min 100 % 131/89 mm[Hg] Martin Terrence [employer] 14:58:37 Social History Question Answer Notes LastModified by Organizat ion Details LastModified Time Tobacco Smoking Status Never Smoker Daphnie reyes [employer] 02/21/2024 09:48:03 If You Are , What Was Your Level Of Alcohol Consumption Prior To ? None Information not available 02/21/2024 What Is Your Level Of Caffeine Consumption? Moderate [email or web address] Information not available 02/21/2024 In The 14 Days Before Symptom Onset, Have You Had Close Contact With A Laboratory-confir med COVID-19 While That Case Was Ill? No Information not available 03/01/2024 Have You Been To An Area Known To Be High Risk For COVID-19? No Information not available 03/01/2024 Which Illicit Or Recreational Drugs Have You Used? Seney [email or web address] Information not available 02/21/2024 What Was The Date Of Your Most Recent Tobacco Screening? 03/01/2024 Information not available 03/01/2024 Has Tobacco Cessation Counseling Been Provided? Yes [email or web address] Information not available 02/21/2024 On What Date Was Tobacco Cessation Counseling Provided? 03/01/2024 Information not available 03/01/2024 Have You Recently Traveled Abroad? No Information not available 03/01/2024 Have You Used IV Drugs? No [email or web address] Information not available 02/21/2024 Sex: Female Functional Status Question Answer Note LastModified by Organizat ion Details LastModified Time Do you use any illicit or recreational drugs? Yes [email or web address] Information not available 02/21/2024 Do you or have you ever used any other forms of tobacco or nicotine? Yes [email or web address] Information not available 02/21/2024 What is your level of alcohol consumption? None [email or web address] Information not available 02/21/2024 Do you or have you ever used smokeless tobacco? Never used smokeless tobacco [email or web address] Information not available 02/21/2024 Do you or have you ever used e-cigarettes or vape? Current user of electronic cigarettes [email or web address] Information not available 02/21/2024 Mental Status None recorded. Family History Nothing Reported. Medical History Condition Response Other N Hyperthyroidism N Blood Transfusion N Dermatologic Disorders N Gestational Diabetes N Anxiety Disorder N Autoimmune disease N Vision or Eye Problems N Arthritis N Polyps N Infertility N Mental Disorder N Acid Reflux (GERD) N Cancer N Stroke N Neurologic/Epilepsy N Fibromyalgia N Headaches N Kidney Disease N Heart Problems N Hospitalizations N Kidney or Bladder Problems N Acne N Eating Disorder N Art (IVF or FET) N Hepatitis/Liver Disease N Asthma N Trauma/Violence N Substance Abuse N Thrombophilias N Allergies (Food, seasonal, environmental ) N Breast Cancer N Drug/Latex Allergies/Reactions N Emergency room visit since last appointm ent. N Hypothyroidism N Lung Disease N Defects or Inherited Disease N Breast Problem N Hematologic disorders N Anesthesia Complications N History of STI N Deep Vein Thrombosis N Polycystic ovary syndrome N Congenital Anomalies N History of abnormal pap N Endometriosis N High Cholesterol N Psychiatric/Mental Health Condition N Organ Transplant N Schizophrenia N Dialysis N Thyroid Problems N GI Problems N Anemia N Mental Illness N Ovarian Cancer N Diabetes N Pulmonary (TB, Asthma) N Eczema N Abuse/Domestic Violence N Depression/ depression N Heart Disease N Pre-Eclampsia N Hypertension N Osteoporosis N Gynecological History Statement/Question Response Abnormal Pap [...] quadrivalent, preservative 9 completed Daphnie Valentin null, [employer] 02/21/2024 09:43:59 Hib, unspecified formulation 8 completed Daphnie Valentin null, [employer] 02/21/2024 09:43:59 Hib, unspecified formulation 7 completed Daphnie Valentin null, [employer] 02/21/2024 09:43:59 Hib, unspecified formulation 8 completed Daphnie Valentin null, [employer] 02/21/2024 09:43:59 Hib, unspecified formulation 7 completed Daphnie Valentin null, [employer] 02/21/2024 09:43:59 IPV 1 completed Daphnie Valentin null, [employer] 02/21/2024 09:43:59 IPV 7 completed Daphnie Valentin null, [employer] 02/21/2024 09:43:59 IPV 7 completed Daphnie Valentin null, [employer] 02/21/2024 09:43:59 MMR 8 completed Daphnie Valentin null, [employer] 02/21/2024 09:43:59 MMR 1 completed Daphnie Valentin null, [employer] 02/21/2024 09:43:59 MMR 8 completed Daphnie Valentin null, [employer] 02/21/2024 09:43:59 COVID-19, mRNA, LNP-S, PF, 100 mcg/0.5mL dose or 50 mcg/0.25mL dose 1 completed Daphnie Valentin null, [employer] 02/21/2024 09:43:59 pneumococcal conjugate PCV 7 1 completed Daphnie Hanson null, [employer] 02/21/2024 09:43:59 Tdap 9 completed Daphnie Valentin null, [employer] 02/21/2024 09:43:59 Tdap 7 completed Daphnie Valentin null, [employer] 02/21/2024 09:43:59 varicella 9 completed Daphnie Valentin null, [employer] 02/21/2024 09:43:59 varicella 8 completed Daphnie Valentin null, [employer] 02/21/2024 09:43:59 polio, unspecified formulation 8 completed Daphnie Valentin null, [employer] 02/21/2024 09:43:59 Influenza, split virus, trivalent, preservative 7 completed Daphnie Valentin null, [employer] 02/21/2024 09:43:59 Hep B, adolescent or pediatric 7 completed Daphnie Valentin null, [employer] 02/21/2024 09:43:59 Hep B, adolescent or pediatric 7 completed Daphnie Valentin null, [employer] 02/21/2024 09:43:59 Hep B, adolescent or pediatric 8 completed Daphnie Valentin null, [employer] 02/21/2024 09:43:59 Hep A, adult 9 completed Daphnie Valentin null, [employer] 02/21/2024 09:43:59 Hep A, adult 8 completed Daphnie Valentin null, [employer] 02/21/2024 09:43:59 DTaP, unspecified formulation 8 completed Daphnie Valentin null, [employer] 02/21/2024 09:43:59 DTaP, unspecified formulation 1 completed Daphnie Hanson null, [employer] 02/21/2024 09:44:00 DTaP, unspecified formulation 7 completed Daphnie Hanson null, [employer] 02/21/2024 09:44:00 DTaP, unspecified formulation 8 completed Daphnie Hanson null, [employer] 02/21/2024 09:44:00 DTaP, unspecified formulation 7 completed Daphnie Hanson null, [employer] 02/21/2024 09:44:00 Influenza, split virus, quadrivalent, PF 0 completed Daphnie Hanson null, [employer] 02/21/2024 09:44:00 Past Encounters Encounter ID Performer Location Encounter Start Date Encounter Closed Date Diagnosis/Indication Diagnosis SNOMED-CT Code Diagnosis ICD10 Code Diagnosis IMO Codes Diagnosis Note [id number] Josselyn Vazquez APRN [employer] [facility] [address], [employer] [address] 02/21/2024 09:35:29 02/21/2024 11:30:10 Family history of breast cancer 944350003 Z80.3 Family his tory of malignant neoplasm of ovary 869775398 Z80.41 provided info on [employer] ovarian cancer screening program Screening for malignant neoplasm of cervix 053621037 Z12.4 Gynecologi c examination 22085067 Z01.419 Implantati on of subcutaneous contraceptive 438466516 Z30.46 [id number] Bev Dorman MD [employer] [facility] [address] [employer] [address] 03/01/2024 14:31:48 03/01/2024 16:09:14 Contraception care management 897604335 Z30.9 Health Concerns Section Related Observation LastModified by Organization Detai ls LastModified Time None Recorded Concern Status LastModified by Organization Details LastModified Time None Recorded Advance Directives Directive None Recorded Payers Insurance Date Sequence Insurance Name Policy Number Policy Hicks Covered Member ID Hicks Member ID Guarantor Name 03/22/2024 1 UNSPECIFIED REMIT PAYOR Katie Jimenezerson 02/21/2024 1 *SELF PAY* Lavern Hodge 02/10/2025 1 [facility] (MEDICAID HMO) Katie Hodge [id number] Katie Naveen Notes Date Note Type Note Provider Name and Address Organization Details Recorded Time 02/21/2024 text/html ROS as noted in the HPI 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 She reports concern for familial h/o [...] Mood is stable. Josselyn Vazquez APRN [address] [place], [address], [employer] 02/21/2024 10:56:54 03/01/2024 text/html ROS as noted [...] panel lab work. Bev Dorman MD [address] [place], [address], [employer] 03/01/2024 15:31:14 OBGyn Episode No OBEpisode recorded.
[2025-04-15] MEDS: LACTATED RINGERS 1000ML 1,000 ML 1000 ML IV (06:05)
[2025-04-15 06:13] LABS: Hematocrit 32.5 % (37.0-47.0); Hemoglobin 10.8 g/dL (12.2-16.2); Immature Granulocytes % 0.7 %; Mean Corpuscular HGB Conc 33.2 g/dL (31.8-35.4); Mean Corpuscular Hemoglobin 29.3 pg (27.0-31.2); Mean Corpuscular Volume 88.1 fl (81-99); Nucleated Red Blood Cells % 0 %; Platelet Count 235 K/mm3 (142-424); Red Blood Count 3.69 M/mm3 (4.20-5.40); Red Cell Distribution Width-SD 42.7 fL; White Blood Count 10.0 K/mm3 (4.8-10.8)
--- NOTE | 2025-04-15 07:11 | EXP.ANES.CKL ---
[facility] Disclaimer: The information contained in this section may have been updated after the patient was seen, as this information can be updated by other users. Medical History Obesity affecting Chronic hypertension affecting ASCUS (atypical squamous cells of undetermined significance) on gynecologic Papanicolaou smear complicating , antepartum Kidney stone High risk HPV infection Anxiety and depression Surgical History (Updated 04/08/25 @ 10:55 by Tenzin Gaitan RN) History of thumb surgery History of 2 sections Family History Other Cancer FHx: mental illness Heart attack Hyperlipidemia Hypertension Social History (Updated 04/08/25 @ 10:56 by Tenzin Gaitan RN) Smoking Status: Former smoker tobacco type: e-cigarettes second hand exposure: Yes alcohol intake: never substance use type: marijuana current occupational status: employed Travel in the last 8 weeks?: None household members: family housing: house number of children: 1 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 current occupational exposures/hazards: No caffeine: Yes Have you lived/traveled outside [place] in past 30 days?: No Contact w/someone who lives/traveled outside US past 30 days?: No Exposure to someone with infectious disease in past 14 days?: No Do you have a fever (greater than 100.4 F or 38 C)?: No Have you tested positive for COVID-19?: No Exposed to someone with COVID-19 in past 14 days?: No Do you have a sore throat?: No Do you have a cough?: No Do you have any weakness?: No Do you have any diarrhea?: No Are you experiencing any unusual bleeding?: No Do you have any muscle aches/pain?: No Do you have any abdominal pain?: No Are you experiencing loss of taste or smell?: No [facility] Anesthesia Checklist Patient Identification Patient Identification: Arm Band and Verbal (Name & ) Structural Data Admitted From: Home Planned Operative Procedure/s: Consent for Planned Operative Procedure(s) Verified: Yes Verified Documents: Surgical Consent NPO Status Verified Time NPO: 00:00 Chart Verification Results Verified: CBC and BMP Additional verifications Patient : Yes Anesthesia Reactions: No Hx Blood Transfusions: No Blood Transfusion Reaction: No Airway Assessment Mallampati Score:: Class II C-Spine Mobility Assessed: Yes TMJ Mobility Assessed: Yes Dentition: Good Dentition Neurological Assessment Level of Consciousness: Awake, Alert and Appropriate Hx Seizures: No Numbness or tingling in extremities: No Anesthesia Plan Anesthesia Risk discussed: Yes Anesthesia Plan: Verified ASA Class: II Anesthesia Type: Spinal
[2025-04-15] MEDS: CLINDAMYCIN PHOSPHATE/D5W 900 MG/50 ML PIGGYBACK 100 MG IV (07:36)
--- NOTE | 2025-04-15 07:44 | EXP.HP ---
History of Present Illness *Admission Date: 04/15/25 *Reason for visit:: section *History of present illness: Katie Hodge is a pleasant 29yo at 37 weeks and 2 days gestation who presented to labor and delivery for scheduled delivery and bilateral salpingectomy. Her has been complicated by chronic hypertension with rising blood pressures, obesity, and previous delivery. Medications include labetalol and nausea medicine. On presentation patient endorsed good movement and denies any leakage of fluid or vaginal bleeding. A+, antibody negative, rubella non immune, hepatitis Bs Ag negative, hepatitis C negative, RPR negative, HIV negative 1 hour GTT: 90 GBS negative PFSH PFSH Disclaimer: The information contained in this section may have been updated after the patient was seen, as this information can be updated by other users. Medical History (Updated 04/15/25 @ 09:06 by Brianna Cerna DO) Obesity affecting Chronic hypertension affecting ASCUS (atypical squamous cells of undetermined significance) on gynecologic Papanicolaou smear complicating , antepartum Kidney stone High risk HPV infection Anxiety and depression Surgical History (Updated 04/08/25 @ 10:55 by Tenzin Gaitan RN) History of thumb surgery History of 2 sections Family History Other Cancer FHx: mental illness Heart attack Hyperlipidemia Hypertension Social History (Updated 04/08/25 @ 10:56 by Tenzin Gaitan RN) Smoking Status: Former smoker tobacco type: e-cigarettes second hand exposure: Yes alcohol intake: never substance use type: marijuana current occupational status: employed Travel in the last 8 weeks?: None household members: family housing: house number of children: 1 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 current occupational exposures/hazards: No caffeine: Yes Have you lived/traveled outside [place] in past 30 days?: No Contact w/someone who lives/traveled outside [place] past 30 days?: No Exposure to someone with infectious disease in past 14 days?: No Do you have a fever (greater than 100.4 F or 38 C)?: No Have you tested positive for COVID-19?: No Exposed to someone with COVID-19 in past 14 days?: No Do you have a sore throat?: No Do you have a cough?: No Do you have any weakness?: No Do you have any diarrhea?: No Are you experiencing any unusual bleeding?: No Do you have any muscle aches/pain?: No Do you have any abdominal pain?: No Are you experiencing loss of taste or smell?: No Other Medical History Have you received the Flu Vaccine for this season: No Have you received the Pneumonia Vaccine: No Review of Systems Review of Systems Review of systems (narrative): Review of Systems Constitutional: Denies fever, chills, and sweats Eyes: Denies vision change/ pain Respiratory: Denies cough and shortness of breath Cardiovascular: Denies chest pain and lightheadedness Gastrointestinal: Denies abdominal pain. Denies nausea, vomiting. Genitourinary: Denies dysuria and incontinence Musculoskeletal: Denies shoulder pain and back pain Neurological: Denies change in speech or headaches Meds Home Medications and Allergies Home Medications ?Medication ?Instructions ?Recorded ?Confirmed ?Type vits no.126-ferrous fum 1 tab PO DAILY #30 tabs 08/24/23 04/08/25 Rx 28 mg iron-folic acid 800 mcg tablet (Classic ) acetaminophen 500 mg tablet 500 mg PO TID #90 tabs 12/23/24 04/08/25 Rx famotidine 20 mg tablet 20 mg PO DAILY #30 tabs 03/12/25 04/08/25 Rx labetalol 100 mg tablet 100 mg PO BID 04/15/25 04/15/25 History New Prescriptions to Start Prescriptions: Allergies Allergy/AdvReac Type Severity Reaction Status Date / Time amoxicillin (AMOXICILLIN) Allergy Unknown Unknown Verified 04/08/25 09:47 allergy reaction Exam Data for Last 24 hours Vital signs and Labs for Last 24 Hours: Temp Pulse Resp BP Pulse Ox O2 Del Method 98.2 F 101 H 18 111/69 97 Room Air 04/15/25 06:30 04/15/25 06:30 04/15/25 06:30 04/15/25 06:30 04/15/25 06:30 04/15/25 06:30 Laboratory Results - last 24 hr 04/15/25 05:58: WBC 10.0, RBC 3.69 L, Hgb 10.8 L, Hct 32.5 L, MCV 88.1, MCH 29.3, MCHC 33.2, RDW 13.5, Plt Count 235, MPV 9.1, Neut % (Auto) 72.0, Lymph % (Auto) 19.6, Sullivan % (Auto) 6.5, Eos % (Auto) 0.9, Baso % (Auto) 0.3, Neut # (Auto) 7.2, Lymph # (Auto) 2.0, Sullivan # (Auto) 0.7, Eos # (Auto) 0.1, Baso # (Auto) 0.0 I & O for Last 24 hours: Intake & Output 04/12/25 04/13/25 04/14/25 04/15/25 23:59 23:59 23:59 23:59 Weight 210 lb Narrative: General: patient is alert oriented in no acute distress and responds appropriately to questions. HEENT: NCAT, EOMI, moist mucous membranes, neck supple with full ROM Cardiovascular: RRR +S1/S2, no murmurs or rubs Pulmonary: Clear to auscultation bilaterally, nonlabored breathing, symmetric chest rise Abdominal: Gravid abdomen appropriate for gestation. No guarding, rebound, or tenderness noted. Extremities: trace edema, no tenderness or cyanosis noted Skin: Normal turgor, intact, warm. Negative for erythema, pallor, petechia, or lesions Neurologic: Negative for sensory or motor deficit Psychiatric: Normal affect, normal thought process, good judgment and insight, no depression or anxious mood appreciated. *Routine HEENT Exam Head: Present normocephalic and atraumatic Eye: Present EOMI, PERRL and normal accommodation; Absent conjunctival icterus, scleral injection, nystagmus or exophthalmos ENT: Present mucous membranes moist *Routine Respiratory Exam Respiratory: Present CTA bilaterally, normal respiratory effort, able to speak in complete sentences and symmetric chest movement; Absent accessory muscle use, decreased breath sounds, rales, respiratory distress, wheezes, distant breath sounds or diminished air movement *Routine Cardiovascular Exam Cardiovascular: Present RRR, Normal S1 and Normal S2; Absent murmur or gallop *Routine Abdominal Exam Abdominal: Present soft and normoactive bowel sounds; Absent tenderness, distended, rebound or guarding *Routine Rectal Exam Rectal:: deferred *Routine Genitalia Exam Genitalia:: normal female Assessment and Plan *Assessment and plan (1) Anxiety: Status: Acute Category: Medical Code(s): F41.9 - Anxiety disorder, unspecified (2) Obesity: Status: Acute Category: Medical Code(s): E66.9 - Obesity, unspecified (3) Tobacco use: Status: Acute Category: Social Hx Code(s): Z72.0 - Tobacco use (4) 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 Status: Acute Category: Medical Code(s): Z14.8 - Genetic carrier of other disease (5) Chronic hypertension affecting : Status: Acute Category: Medical Code(s): O10.919 - Unspecified pre-existing hypertension complicating , unspecified trimester (6) Obesity affecting : Status: Acute Category: Medical Code(s): O99.210 - Obesity complicating , unspecified trimester (7) delivery delivered: Status: Acute Category: Medical Code(s): O82 - Encounter for delivery without indication (8) Rubella non-immune status, delivered, current hospitalization: Status: Acute Category: Medical Code(s): O99.892 - Other specified diseases and conditions complicating childbirth; Z28.39 - Other underimmunization status Plan - Monitor vitals - Admit to L&D for scheduled delivery - External FHR and TOCO monitor - GBS neg/ Blood type: A+ - Hemoglobin: 10.8, Plt: 235 - Plan for spinal anesthesia - Anticipate delivery of male infant #Rubella Non Immune - grief counsellor and vaccinate Reviewed the risks benefits and alternatives to Repeat delivery. Discussed the risk of bleeding, infection injury to the surrounding structures. Patient consented to blood transfusion to medically necessary. Reviewed the rare risk of hysterectomy if bleeding is unable to be controlled. Discussed risk of infection, the patient has no allergies and will receive 2 g of Ancef preoperatively. Reviewed the risk of injury to surrounding structures including the bowel, bladder, reproductive organs, and neurovascular bundles. Discussed the permanent nature of salpingectomy and patient voiced understanding and desired to proceed with complete fallopian tube removal. Patient voiced understanding. Discussed the increased risk with prior surgery and scarring. Patient and significant other voiced understanding desire to proceed
[2025-04-15 08:16] LABS: Microscopic, Urine URINE MICROSCOPIC (MICROSCOPIC)
[2025-04-15 08:55] LABS: Bilirubin,Urine Negative (Negative); Color,Urine YELLOW (Yellow); Glucose,Urine (UA) Negative (Negative); Ketones,Urine Negative (Negative); Leukocyte Esterase,Urine Negative (Negative); PH,Urine 6.5 (5.0-8.5); Protein,Urine Negative (Negative); Specific Gravity, Urine 1.025 (1.005-1.030); Urobilinogen,Urine 0.2 EU/dl (0.2)
--- NOTE | 2025-04-15 09:07 | P.OP_ITS ---
Date of procedure: 04/15/25 Pre-op Diagnosis:: 1. 37 weeks 2days gestation, [place] 2. Chronic hypertension 3. Maternal obesity 4. Previous delivery 5. Desires sterilization 6. Rh Positive Post-op Diagnosis:: 1. 37 weeks 2days gestation, [place] 2. Chronic hypertension 3. Maternal obesity 4. Previous delivery 5. Desires sterilization 6. Rh Positive Procedure performed:: Repeat Delivery with bilateral salpingectomy Surgeon:: Brianna Cerna DO Site Surveyor(s):: Srinivasa Mcleod MD SUSTAINABLE COMMUNITIES DESIGNER:: Chirag Davila Anesthesia: spinal Estimated blood loss (mL): 550 Operative findings:: 1. Live viable male : Nestor. Weight: 7pounds 13ounces. Apgars 8 and 9 at 1 and 5 minutes respectively 2. Normal-appearing fallopian tubes and ovaries bilaterally Operative note:: Medications: 2 g of Ancef Summary: Procedure explained in its entirety. The patient was counseled on the risks and benefits of section including bleeding, vascular injury, infection, and injury to the surrounding structures. Hemorrhage requiring life saving blood transfusion resulting in blood born viral infection or allergic reaction was explained and the patient consented to blood transfusion. Possible need for further operative measures prolonging recovery time and hospitalization reviewed to include hysterectomy. Procedure explained in its entirety and p atient had no further questions. Consented to procedure. The patient was taken back to the operating room where adequate spinal anesthesia was obtained. Pneumatic compression stockings applied to lower extremities. Ancef 2g was given for infection prophylaxis. She was placed in the dorsal supine position Urinary catheter was placed and found to be draining clear urine. The patient was prepped and draped in sterile fashion. Anesthesia was tested and and found to be adequate. A Pfannenstiel skin incision was made with the scalpel. Subcutaneous bleeding vessels were cauterized with the bovie. The incision was taken down to the fascia with the bovie. The fascia was knicked in the midline and sharply extended laterally. The superior aspect of the fascia was grasped with Alexey clamps and the rectus muscle was taken down with the Bovie. The rectus muscle was sharply dissected from the midline with Mayos. This process was repeated inferiorly. The rectus muscles were in the midline, peritoneum was identified and entered bluntly. Tre O retractor was placed and the bladder was noted to be out of the operative field. A bladder flap was created with Metzenbaum scissors and Libyan pickups. The lower uterine segment was easily identified, and noted to be very thin. ABRAHAM was sharply incised, and entered bluntly with the surgeon's index finger. Incision was then extended in a superior and inferior fashion by blunt separation. Membranes were ruptured revealing clear fluid. The fetus was in cephalic presentation. The head was carefully elevated out of the pelvis. Fundal pressure was applied when head was brought into incision. The infants head was delivered without difficulty. The shoulder and body followed without complication. Delivery occurred at 0811. The mouth and nose were suctioned with a bulb. The umbilical cord was clamped and cut. was taken to warmer for evaluation by the director of strategic initiatives. Cord blood was collected. The placenta was delivered via fundal massage and found to be normal and intact. 3 vessel cord was noted. IV Pitocin was initiated. Inside of the uterus was gently cleared of blood and clots with lap sponge. The hysterotomy was closed with 0 Vicryl in a running locked fashion. The lower uterine segment was visualized and noted to be hemostatic. The ovaries and tubes were found to be normal. The posterior aspect of the uterus was cleared of blood clot with a damp lap sponge. The distal portion of the right fallopian tube was grasped with Sam clamp and elevated away from surrounding structures. The Enseal device was inserted over mesosalpinx inferior to right distal fallopian tube and used to serially clamp, fulgurate, and transected the fallopian tube in its entirety. Hemostasis noted and the tube was passed off the operative field to be sent to pathology for further evaluation. This process was repeated on the contralateral side. Hemostasis noted. No bleeding was visualized at the fulguration site. The gutters were inspected bilaterally and cleared of blood and clots with lap sponges. The uterine incision was reinspected, and there was slight oozing noted at the vesicouterine peritoneal edges. These edges were reapproximated with a 2-0 Monocryl. Hemostasis noted. Tre O retractor was removed. The peritoneum and rectus muscle were fused together and together they were reapproximated using a 2-0 Monocryl in a running fashion. The fascia was closed in a running nonlocked fashion using #1 Vicryl x2 meeting right of midline. Fascia was noted as not having gaps or defects. The subcutaneous fat was closed with 2-0 Monocryl interrupted sutures x3. Skin was closed with the INSORB suture in a subcuticular fashion. Patient tolerated the procedure well and all counts were correct x3, per nursing. Patient will receive tap blocks and then be transported to the OB PACU for recovery and bonding. Condition: stable Disposition: floor Specimens:: 1. Live viable male infant 2. Cord blood 3. Placenta Complications:: None
--- NOTE | 2025-04-15 09:16 | EXP.ANES.I ---
[facility] Anesthesia Record Part I Anesthesia Record I Intake, IV Amount: 1,600 Hydration: Adequate Estimated blood loss (mL): 550 Urine output (mL): 100 Blood Products used (#): none Blood Pressure: 122/82 SaO2: 99 Pulse Rate: 103 Airway Patency: Patent Respiratory Rate: 20 Temperature: 97.0 F Patient is:: Awake and Stable Stable to PACU at:: 09:10
[2025-04-15 09:24] LABS: Bacteria,Urine Trace /lpf; WBC,Urine Occasional #/hpf (0-3)
[2025-04-15] MEDS: LACTATED RINGERS 1000ML 1,000 ML 125 ML IV (10:00)
[2025-04-15] MEDS: OXYTOCIN/RINGERS LACTATE 30 UNITS/500 ML BAG 999 UNITS IV (10:00)
[2025-04-15 10:49] LABS: Microscopic,Cath URINE MICROSCOPIC (MICROSCOPIC)
--- NOTE | 2025-04-15 11:01 | EXP.ANES.II ---
[facility] Anesthesia Record Part II Anesthesia Record Part II Discharge Time: 09:30 Destination: Obstetric PACU nurse assessment reviewed?: Yes Patient Condition:: Good Anesthesia Complications:: None Swallowing reflex intact?: Yes Airway Patency: Patent Cyanosis?: No Blood Pressure: 126/83 SaO2: 100 Respiratory Rate: 18 Pulse Rate: 81 Temperature: 97 F Mental Status: Alert & Oriented Pain level:: 0 Nausea and/or vomitting:: None Intake, IV Amount: 0 Hydration: Adequate
[2025-04-15] MEDS: ACETAMINOPHEN 500MG TAB 1000 MG PO ×3 (11:09→22:45)
[2025-04-15 11:36] LABS: Appearance,Urine/Cath CLEAR (Clear); Bilirubin,Cath Negative (Negative); Blood, Urine/Cath Negative (Negative); Color,Urine/Cath YELLOW (Yellow); Glucose,Urine/Cath (UA) Negative (Negative); Ketones,Urine/Cath Negative (Negative); Leukocyte Esterase,Cath Negative (Negative); Nitrate,Cath Negative (Negative); PH,Urine/Cath 7.0 (5.0-8.5); Protein,Urine/Cath Negative (Negative); Specific Gravity, Urine/Cath 1.010 (1.005-1.030); Urobilinogen,Cath 0.2 EU/dl (0.2)
[2025-04-15] MEDS: OXYCODONE 5MG IMMEDIATE RELEASE TABLET 5 MG PO ×2 (12:19→22:46)
[2025-04-15 13:30] LABS: Squamous Epithelial Ur./Cath Occasional #/hpf (0-5); WBC,Urine/Cath Occasional #/hpf (0-3)
[2025-04-15 14:00] LABS: RPR W/RFX Titers Nonreactive (Nonreactive)
[2025-04-15] MEDS: KETOROLAC 30MG/ML VIAL 30 MG IV ×2 (16:10→22:44)
[2025-04-15] MEDS: PRENATAL MULTIVITAMIN W/IRON 1 EACH PO (16:10)
[2025-04-15] MEDS: SODIUM CHLORIDE 0.9% 10ML FLUSH SYRINGE 10 ML IV (16:11)
[2025-04-15] MEDS: LABETALOL 100MG TABLET 200 MG PO (21:44)
[2025-04-15] MEDS: SENNA 8.6MG TABLET 8.6 MG PO (21:44)
[2025-04-16] MEDS: PROMETHAZINE HCL 25MG/ML 1ML VIAL 12.5 MG IV (03:50)
[2025-04-16] MEDS: SODIUM CHLORIDE 0.9% 25ML BAG 25 ML IV (03:51)
[2025-04-16 06:07] LABS: Hematocrit 28.4 % (37.0-47.0); Immature Granulocytes % 0.9 %; Mean Corpuscular HGB Conc 32.0 g/dL (31.8-35.4); Mean Corpuscular Hemoglobin 28.8 pg (27.0-31.2); Mean Corpuscular Volume 89.9 fl (81-99); Nucleated Red Blood Cells % 0 %; Platelet Count 197 K/mm3 (142-424); Red Blood Count 3.16 M/mm3 (4.20-5.40); Red Cell Distribution Width-SD 45.0 fL; White Blood Count 10.5 K/mm3 (4.8-10.8)
[2025-04-16 06:17] LABS: Hemoglobin 9.2 g/dL (12.2-16.2)
[2025-04-16] MEDS: KETOROLAC 30MG/ML VIAL 30 MG IV (06:59)
[2025-04-16] MEDS: ACETAMINOPHEN 500MG TAB 1000 MG PO ×2 (06:59→13:59)
[2025-04-16 08:43] VITALS: BP 128/83; PULSE 98; RESP 18; TEMP 36.8; O2SAT 100
[2025-04-16] MEDS: SENNA 8.6MG TABLET 8.6 MG PO ×2 (08:51→21:33)
[2025-04-16] MEDS: LABETALOL 100MG TABLET 200 MG PO (08:51)
[2025-04-16] MEDS: IRON SUCROSE COMPLEX 200 MG in 0.9 % SODIUM CHLORIDE 100 ML 220 MG IV (09:20)
--- NOTE | 2025-04-16 09:36 | EXP.PN ---
Subjective *Date: 04/16/25 *Time: 09:36 Interval history: Katie Hodge is a very pleasant 29 yo day #1, repeat low-transverse delivery and bilateral salpingectomy. Her hasbeen complicated by chronic hypertension with rising blood pressures, obesity, and previous delivery. Routine delivery and course. She is doing well, sitting up in the chair, and visiting with family this morning. -Reports pain is well-controlled -Reports she is tolerating p.o. without nausea or vomiting. -Reports her lochia is scant. -Ambulating, voiding difficulty or dysuria. Denies chest pain shortness of breath or pain in her legs. No further complaints at this time. Exam Data for Last 24 hours Vital signs and Labs for Last 24 Hours: Temp Pulse Resp BP Pulse Ox O2 Del Method 97.9 F 76 18 130/86 97 Room Air 04/15/25 23:00 04/15/25 23:00 04/15/25 23:00 04/15/25 23:00 04/15/25 23:00 04/15/25 23:00 Laboratory Results - last 24 hr 04/15/25 05:58: RPR w/Rflx to Titer Nonreactive, Blood Type A Positive, Antibody Screen Negative, Crossmatch (AHG) See Detail 04/15/25 07:45: Urine Color Yellow, Urine Appearance Clear, Urine pH 7.0, Ur Specific [place] 1.010, Urine Protein Negative, Urine Glucose (UA) Negative, Urine Ketones Negative, Urine Blood Negative, Urine Nitrate Negative, Urine Bilirubin Negative, Urine Urobilinogen 0.2, Ur Leukocyte Esterase Negative, Urine RBC None, Urine WBC Occasional, Ur Squamous Epith Cells Occasional, Urine Bacteria None 04/16/25 05:34: WBC 10.5, RBC 3.16 L, Hgb 9.2 L D, Hct 28.4 L, MCV 89.9, MCH 28.8, MCHC 32.0, RDW 13.6, Plt Count 197, MPV 9.2, Neut % (Auto) 64.3, Lymph % (Auto) 25.4, Harper % (Auto) 8.6, Eos % (Auto) 0.5, Baso % (Auto) 0.3, Neut # (Auto) 6.7, Lymph # (Auto) 2.7, Harper # (Auto) 0.9, Eos # (Auto) 0.1, Baso # (Auto) 0.0 I & O for Last 24 hours: Intake & Output 04/13/25 04/14/25 04/15/25 04/16/25 23:59 23:59 23:59 23:59 Intake Total 2678.500 / 2678.500 Output Total 1300 / 1300 Balance 1378.500 / 1378.500 Weight 210 lb Narrative: General: patient is alert oriented in no acute distress and responds appropriately to questions. Appears to be in minimal pain. Sitting up in the chair and doing well HEENT: NCAT, EOMI, moist mucous membranes, neck supple with full ROM Cardiovascular: RRR +S1/S2, no murmurs or rubs Pulmonary: Clear to auscultation bilaterally, nonlabored breathing, symmetric chest rise Abdominal: Fundus at the umbilicus, firm, and tenderness appropriate for the period. Extremities: trace edema, no tenderness or cyanosis noted Skin: Normal turgor, intact, warm. Negative for erythema, pallor, petechia, or lesions. Well-healing skin incision Neurologic: Negative for sensory or motor deficit Psychiatric: Normal affect, normal thought process, good judgment and insight, no depression or anxious mood appreciated. 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 POD#1 s/p RLTCD & BSG -Doing well. VSS. Serial lochia and fundal checks. -Rubella nonimmune, counseling patient desires -Hemoglobin: 10.8--> 9.2 - asymptomatic anemia noted. Vitals stable. Continue monitoring. IV Venofer ordered this morning -A+/antibody negative -Breast and bottlefeeding male -Desires circumcision, consents signed and risks reviewed -Contraception: BSG -Follow-up 2 weeks for routine visit -Dispo: home in 1-3 days pending mother/infant status
[2025-04-16] MEDS: MEASLES,MUMPS,RUBELLA VACCINE VIAL 0.5 ML SUBCUT (11:12)
[2025-04-16] MEDS: OXYCODONE 5MG IMMEDIATE RELEASE TABLET 5 MG PO ×2 (13:59→21:33)
[2025-04-16] MEDS: IBUPROFEN 400 MG TABLET 800 MG PO (14:00)
[2025-04-16 16:23] VITALS: BP 126/78; PULSE 85; RESP 18; TEMP 36.8; O2SAT 97
[2025-04-16] MEDS: PRENATAL MULTIVITAMIN W/IRON 1 EACH PO (18:29)
[2025-04-16] MEDS: ONDANSETRON 4MG ODT 4 MG SL (19:20)
[2025-04-17] MEDS: IBUPROFEN 400 MG TABLET 800 MG PO ×2 (04:19→12:17)
[2025-04-17] MEDS: ACETAMINOPHEN 500MG TAB 1000 MG PO ×3 (04:19→16:53)
[2025-04-17] MEDS: ONDANSETRON 4MG ODT 4 MG SL ×2 (04:20→15:24)
[2025-04-17 09:19] VITALS: BP 146/92; PULSE 99; RESP 18; TEMP 37.4; O2SAT 98
[2025-04-17] MEDS: LABETALOL 100MG TABLET 200 MG PO (09:21)
[2025-04-17 09:59] VITALS: BP 128/78; TEMP 36.8
[2025-04-17] MEDS: OXYCODONE 5MG IMMEDIATE RELEASE TABLET 5 MG PO (10:06)
--- NOTE | 2025-04-17 10:41 | EXP.DC.SUM ---
General Admission date:: 04/15/25 Discharge date: 04/17/25 HPI HPI HPI: Katie Hodge is a pleasant 29yo at 37 weeks and 2 days gestation who presented to labor and delivery for scheduled delivery and bilateral salpingectomy. Her has been complicated by chronic hypertension with rising blood pressures, obesity, and previous delivery. Medications include labetalol and nausea medicine. On presentation patient endorsed good movement and denies any leakage of fluid or vaginal bleeding. A+, antibody negative, rubella non immune, hepatitis Bs Ag negative, hepatitis C negative, RPR negative, HIV negative 1 hour GTT: 90 GBS negative Hospital Course Hospital Course Hospital Course: Katie Hodge is a very pleasant 29-year-old -0-1-3 postoperative day #2 from a repeat low-transverse delivery with bilateral salpingectomy. Her was complicated by chronic hypertension on medication with increasing blood pressures, obesity, and a previous delivery. She had a routine delivery and course. She is doing well. She does endorse some increased anxiety and crying. She did have depression with her last delivery. She delivered a live viable male on 04/15/2025 at 0 811. Infant weighed 7 pounds 13 ounces and had Apgars of 8 and 9 at 1 and 5 minutes respectively. She has done well and has remained afebrile with her at her hospitalization. She is eating and drinking and ambulating. She is bottlefeeding. Her lochia is normal. She has A Rh+ blood, she is rubella immune and was group B streptococcus negative. She will be discharged home to follow-up with Dr. Cerna in 2 weeks time. She will continue with her vitamins and iron. She has a prescription for Percocet and will continue these at home. She will take ibuprofen as well. She was given the usual instructions with respect to limiting her activity, driving and sexual activity. She was given instructions with respect to wound care. Her condition on discharge is stable and improved. Exam Data for Last 24 hours Vital signs and Labs for Last 24 Hours: Temp Pulse Resp BP Pulse Ox O2 Del Method 98.2 F 99 H 18 128/78 98 Room Air 04/17/25 09:59 04/17/25 09:19 04/17/25 09:19 04/17/25 09:59 04/17/25 09:19 04/17/25 09:19 I & O for Last 24 hours: Intake & Output 04/14/25 04/15/25 04/16/25 04/17/25 23:59 23:59 23:59 23:59 Intake Total 2678.500 / 2678.500 110 / 110 Output Total 1300 / 1300 Balance 1378.500 / 1378.500 110 / 110 Weight 210 lb Narrative: General: patient is alert oriented in no acute distress and responds appropriately to questions. Appears to be in minimal pain. Sitting up in the chair and doing well HEENT: NCAT, EOMI, moist mucous membranes, neck supple with full ROM Cardiovascular: RRR +S1/S2, no murmurs or rubs Pulmonary: Clear to auscultation bilaterally, nonlabored breathing, symmetric chest rise Abdominal: Fundus below the umbilicus, firm, and tenderness appropriate for the period. Extremities: trace edema, no tenderness or cyanosis noted Skin: Normal turgor, intact, warm. Negative for erythema, pallor, petechia, or lesions. Well-healing skin incision. Covered with Steri-Strips Neurologic: Negative for sensory or motor deficit Psychiatric: Normal affect, normal thought process, good judgment and insight, no depression or anxious mood appreciated. 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 (6) Chronic hypertension affecting : Status: Acute Code(s): O10.919 - Unspecified pre-existing hypertension complicating , unspecified trimester (7) Anemia: Status: Acute Code(s): D64.9 - Anemia, unspecified Qualifiers: Anemia type: other cause Meds Home Medications and Allergies Home Medications ?Medication ?Instructions ?Recorded ?Confirmed ?Type vits no.126-ferrous fum 1 tab PO DAILY #30 tabs 08/24/23 04/15/25 Rx 28 mg iron-folic acid 800 mcg tablet (Classic ) acetaminophen 500 mg tablet 500 mg PO TID #90 tabs 12/23/24 04/15/25 Rx famotidine 20 mg tablet 20 mg PO DAILY #30 tabs 03/12/25 04/15/25 Rx labetalol 100 mg tablet 200 mg PO BID 04/15/25 04/15/25 History acetaminophen 500 mg tablet 500 mg PO Q6H PRN fever or pain 04/17/25 Rx #30 tabs escitalopram oxalate 10 mg tablet 10 mg PO DAILY #60 tabs 04/17/25 Rx (Lexapro) ferrous sulfate 325 mg (65 mg 325 mg PO DAILY #30 tabs 04/17/25 Rx iron) tablet,delayed release ibuprofen 800 mg tablet 800 mg PO Q8H PRN pain #60 tabs 04/17/25 Rx oxycodone 5 mg tablet 5 mg PO Q8H PRN pain #20 tabs 04/17/25 Rx sennosides 8.6 mg tablet (Senna 8.6 mg PO BIDP PRN Constipation 04/17/25 Rx Lax) #60 tabs simethicone 125 mg tablet 125 mg PO DAILY PRN abdominal 04/17/25 Rx distention #60 tabs zuranolone 25 mg capsule (Zurzuvae) 50 mg (2 x 25 mg) PO DAILY 14 days 04/17/25 Rx #28 caps New Prescriptions to Start Prescriptions: acetaminophen Brianna Cerna escitalopram oxalate [Lexapro] Brianna Cerna ferrous sulfate Brianna Cerna ibuprofen Brianna Cerna oxycodone Brianna Cerna sennosides [Senna Lax] Brianna Cerna simethicone Brianna Cerna zuranolone [Zurzuvae] Brianna Cerna Allergies Allergy/AdvReac Type Severity Reaction Status Date / Time amoxicillin (AMOXICILLIN) Allergy Unknown Unknown Verified 04/08/25 09:47 allergy reaction Discharge Plan Disposition Patient Disposition: Home, Self-Care Discharge Order Discharge Orders: Discharge Order (Routine); Ordered 04/17/25 Ordered By: Brianna Cerna Follow up Plan Follow up with: Brianna Cerna DO [Staff Physician, [employer]] - Enter time for follow up Prescriptions/Medication Reconciliation: New sennosides [Senna Lax] 8.6 mg Tablet 8.6 mg PO BIDP PRN (Reason: Constipation) Qty: 60 2RF ibuprofen 800 mg tablet 800 mg PO Q8H PRN (Reason: pain) Qty: 60 2RF acetaminophen 500 mg tablet 500 mg PO Q6H PRN (Reason: fever or pain) Qty: 30 3RF simethicone 125 mg tablet 125 mg PO DAILY PRN (Reason: abdominal distention) Qty: 60 2RF ferrous sulfate 325 mg (65 mg iron) tablet,delayed release (DR/EC) 325 mg PO DAILY Qty: 30 3RF oxycodone 5 mg tablet 5 mg PO Q8H PRN (Reason: pain) Qty: 20 0RF escitalopram oxalate [Lexapro] 10 mg tablet 10 mg PO DAILY Qty: 60 3RF Zurzuvae 25 mg capsule 50 mg PO DAILY 14 Days Qty: 28 0RF Rx Instructions: administer with a high fat meal Continued Classic 28 mg iron- 800 mcg tablet 1 tab PO DAILY Qty: 30 11RF acetaminophen 500 mg tablet 500 mg PO TID Qty: 90 2RF famotidine 20 mg tablet 20 mg PO DAILY Qty: 30 3RF labetalol 100 mg tablet 200 mg PO BID Problem Reconciliation Problems Reviewed?: Yes Patient Discharge Instructions ACTIVITY: Continue current activity DIET: regular diet Additional Instructions: Congratulations on the delivery of your sweet baby boy. It is my privilege to be your doctor and I am so thankful I could be a part of your special day. Discharge: 1. Take 800 mg Ibuprofen every 8 hours as needed for pain. You can also take 500-1000mg of Tylenol in between doses, every 6-8 hours. Use prescription pain medicine for pain you feel in between 8 hour interval. -No driving while taking narcotic pain medications. In order to drive you should be able to slam on the brakes without significant abdominal pain. 2. Wean from prescription pain medicine first. Do not drive while taking it. 3. Prescription pain medicine can make you constipated. Colace can be taken 1-2 times per day as you need. Make sure to drink at least 8 cups of water per day. 4. Iron supplements can make you constipated. Colace can be taken 1-2 times per day as you need. You can take iron tablets every other day if constipation is too bad. 5. Nothing in the vagina for 6 weeks - no intercourse, douching, tampons. No tub baths or swimming pools 6. Do not lift greater than 15 pounds for 6 weeks, this is the equivalent of 2 gallons of milk. 7. Reasons to return to L&D or call On-Call doctor - fever (greater than 100.4) - heavy vaginal bleeding (soaking through 1 pad in less than 2 hours or passing clots that are egg sized) - vaginal discharge (malodorous and/or purulent) - bleeding or discharge from her incision - severe headaches, leg tenderness/edema, or any other symptoms that warrant immediate medical attention. 8. depression/blues - Normal to feel anxious/overwhelmed for first 2 weeks - Talk to your doctor if: anxiety lasts over 2 weeks, trouble bonding with baby, withdrawing from other family members, thoughts of harming yourself or others blues - EDPS: 10 at discharge - Please call the office if you have difficulty bonding with your baby or thoughts of hurting yourself or others. He will follow-up in 2 weeks and we will discuss if you should start the second prescription, Zurzuvae. I have sent two prescriptions for you: 1. Lexapro - you will start this immediately. It will take 4 to 6 weeks for you to start noticing changes. This medication can cause GI upset as well as decreased libido 2. Zuranolone 50mg, you will take this medication once daily for 14 days. It is best to take this medication between 5 and 7 PM when you are anticipating a longer sleep stretch. For the first 3 days that you start this medication you should have someone else's home in case it does make you tired. You should take this medication with a high-fat meal such as: avocados and salmon. The primary side effects include: Increased somnolence, fatigue, drowsiness. This medication will be mailed to your doorstep and you will have to sign for it Blood pressure and preeclampsia instructions - Please call if greater than 2 values are higher than: 150 systolic (the top number) or 100 diastolic (the bottom number). - Please go to the emergency room or labor and delivery triage if any value is higher than: 160 systolic (the top number) or 110 diastolic (the bottom number). - Please call if unrelenting headache (does not go away with rest or Tylenol or ibuprofen), changes in vision (spots, floaters, flashes of light), chest pain, shortness of breath, or right upper quadrant (liver) abdominal pain. Brianna Cerna DO [facility] [phone] *Nothing in the Vagina for 6 weeks* *No strenuous activity* *No heavy lifting* *No tub baths until okay's by MD* Patient Instructions: Depression, Hemorrhage, DI for , DI for Pre-eclampsia, [facility] Post Discharge Instructions Print Language: Kazakh Providers Primary Care Provider: Isabel Wilson Admit Provider: Brianna Cerna Attending Provider: Brianna Cerna
[2025-04-17] MEDS: SENNA 8.6MG TABLET 8.6 MG PO (12:17)
[2025-04-17] MEDS: PRENATAL MULTIVITAMIN W/IRON 1 EACH PO (16:53)
== END 2025-04-17 17:20 | disposition home or self-care (01) | DRG 785 ==
PROVIDERS: Admitting Provider Obstetrics & Gynecology; PCP Nurse Practitioner Family; Visit Provider Obstetrics & Gynecology
PROC: 0UL70ZZ Occlusion of Bilateral Fallopian Tubes, Open Approach (ICD-10-PCS; CPT 59514; principal; 2025-04-15 07:30)
DX: O10.92 Unspecified pre-existing hypertension complicating childbirth (principal); Z3A.37 37 weeks gestation of pregnancy; Z37.0 Single live birth; O99.214 Obesity complicating childbirth; O34.211 Maternal care for low transverse scar from previous cesarean delivery; O99.344 Other mental disorders complicating childbirth; F41.9 Anxiety disorder, unspecified; O90.81 Anemia of the puerperium; O99.892 Other specified diseases and conditions complicating childbirth; Z14.8 Genetic carrier of other disease; Z30.2 Encounter for sterilization; Z28.39 Other underimmunization status; Z87.891 Personal history of nicotine dependence; Z88.0 Allergy status to penicillin; Z79.899 Other long term (current) drug therapy; Z23 Encounter for immunization
CPT/HCPCS: 51702; 59025; 81001; 85025; 86592; 86850; 90460; 90707; J0665; J0666; J0736; J1100; J1580; J1756; J1885; J2003; J2371; J2405; J2550; J3010; J7120; Q0162